=== PATIENT | male | born 1955 | race Two or more races ===

== ENCOUNTER → 2016-06-25 | Outpatient (REF) | payer MEDICARE, MEDICAID | LOC: M SFHCLERA 09:36 | PROVIDERS: ATTEND Family Medicine | DX: F20.9 Schizophrenia, unspecified (principal); F79 Unspecified intellectual disabilities; Z87.898 Personal history of other specified conditions; R76.11 Nonspecific reaction to tuberculin skin test without active tuberculosis ==

== ENCOUNTER → 2016-11-24 | Outpatient (REF) | payer MEDICARE, MEDICAID ==
[~2016-11-24] MED LIST: DEPA1TAB3 PO; DEPA500T2 PO; LACT10SO29 PO; META48.54 PO; MILKSUS PO; PERI0.126 SSP; RISP1TAB42 PO; RISP3TAB20 PO; ZITHTAB PO; ZYPR10TA PO; ZYPR20TA PO
[2016-11-24 11:52] LABS: MEAN CORPUSCULAR HEMOGLOBIN 33.4 pg (27.0-33.0); MEAN CORPUSCULAR HGB CONC 33.8 g/dl (32.0-36.5); MEAN CORPUSCULAR VOLUME 98.8 fl (80.0-96.0); RED CELL DISTRIBUTION WIDTH 12.8 % (11.5-14.5); WHITE BLOOD COUNT 6.7 K/mm3 (4.0-10.0)
[2016-11-24 12:38] LABS: BASOPHILS 1 % (0-4); EOSINOPHILS 1 % (0-5)
[2016-11-24 12:52] LABS: ALBUMIN 3.2 GM/DL (3.2-5.2); ALBUMIN/GLOBULIN RATIO 1.03 (1.00-1.93); ALKALINE PHOSPHATASE 71 U/L (45-117); ALT/SGPT 33 U/L (12-78); ANION GAP 7 MEQ/L (8-16); AST/SGOT 32 U/L (15-37); BILIRUBIN,TOTAL 0.5 MG/DL (0.2-1.0); BLOOD UREA NITROGEN 11 MG/DL (7-18); CALCIUM LEVEL 9.1 MG/DL (8.8-10.2); CARBON DIOXIDE LEVEL 28 MEQ/L (21-32); CHLORIDE LEVEL 103 MEQ/L (98-107); CREATININE FOR GFR 0.78 MG/DL (0.70-1.30); GLOMERULAR FILTRATION RATE > 60.0 (>49); GLUCOSE, FASTING 70 MG/DL (80-110); POTASSIUM SERUM 4.3 MEQ/L (3.5-5.1); SODIUM LEVEL 138 MEQ/L (136-145); TOTAL PROTEIN 6.3 GM/DL (6.4-8.2)
== END ==
LOC: M SFHCLERA 09:20
PROVIDERS: ATTEND Family Medicine
DX: F20.9 Schizophrenia, unspecified (principal)
CPT/HCPCS: 80053; 80164; 85007; 85027; G0463

== ENCOUNTER 2016-12-10 22:17 | Emergency (ER) | payer MEDICARE, MEDICAID ==
[~2016-12-10] VITALS: Ht 188 cm; Wt 72.6 kg
[~2016-12-10 22:17] MED LIST changes: -ZITHTAB PO
[2016-12-10 23:22] LABS: BASO % 0.1 % (0.0-1.0); EOS # 0.2 K/mm3 (0.0-0.50); EOS % 1.6 % (0.0-3.0); LARGE UNSTAINED CELL # 0.1 K/mm3 (0.0-0.4); LYMPH # 1.2 K/mm3 (1.5-4.5); LYMPH % 9.5 % (24.0-44.0); MEAN CORPUSCULAR HEMOGLOBIN 32.7 pg (27.0-33.0); MEAN CORPUSCULAR VOLUME 96.1 fl (80.0-96.0); MONO % 8.7 % (0.0-5.0); NEUTROPHILS # 9.1 K/mm3 (1.8-7.7); PLATELET COUNT, AUTOMATED 133 k/mm3 (150-450); RED CELL DISTRIBUTION WIDTH 12.8 % (11.5-14.5); WHITE BLOOD COUNT 11.5 K/mm3 (4.0-10.0)
[2016-12-10] MEDS ORDERED: ZITHTAB PO (23:43)
[2016-12-10] MEDS ORDERED: AZITHROMYCIN 250 MG TAB PO ONE (23:45)
[2016-12-10 23:56] VITALS: BP 123/57
--- NOTE | 2016-12-11 07:57 | REP ---
PA and lateral chest: There are no comparisons. There is a slightly increased radiodensity in the left lower lobe compatible with acute infiltrate. The remainder of the of the lung beasley are clear. Cardiac size is normal. The dino, mediastinum, and bony thorax are unremarkable. Impression: Left lower lobe infiltrate. Signed by Marco Antonio Mcnair MD 12/11/2016 07:49 A
== END 2016-12-11 00:03 | disposition home or self-care (01) ==
LOC: EDBD 22:17 → M ED 22:17
DX: R91.8 Other nonspecific abnormal finding of lung field (principal); F20.9 Schizophrenia, unspecified; F17.200 Nicotine dependence, unspecified, uncomplicated; Z79.899 Other long term (current) drug therapy; Z88.8 Allergy status to other drugs, medicaments and biological substances

== ENCOUNTER → 2016-12-11 | Outpatient (CLI) | payer MEDICARE, MEDICAID ==
[~2016-12-11] VITALS: Ht 168.9 cm; Wt 75.7 kg
[~2016-12-11] MED LIST changes: +LIDOCAINE 2% INJ 100 MG/5 ML SDV (FOR ANES.) As Ordered ONE; +NS 1,000 ML IV ONE; +PROPOFOL 200 MG/20 ML VIAL As Ordered ONE; +ZITHTAB PO
[2016-12-11 10:30] VITALS: BP 118/69
== END | disposition home or self-care (01) ==
LOC: M OPP 09:54
PROVIDERS: ATTEND Internal Medicine Gastroenterology
DX: Z12.11 Encounter for screening for malignant neoplasm of colon (principal); Z53.9 Procedure and treatment not carried out, unspecified reason

== ENCOUNTER 2017-02-04 12:59 | Outpatient (CLI) | payer MEDICARE, MEDICAID ==
[~2017-02-04] VITALS: Ht 167.6 cm; Wt 74.8 kg
[~2017-02-04 12:59] MED LIST changes: -LIDOCAINE 2% INJ 100 MG/5 ML SDV (FOR ANES.) As Ordered ONE; -NS 1,000 ML IV ONE; -PROPOFOL 200 MG/20 ML VIAL As Ordered ONE
[2017-02-04] MEDS ORDERED: NS 1,000 ML IV ONE (13:00)
[2017-02-04] MEDS ORDERED: PROPOFOL 200 MG/20 ML VIAL As Ordered ONE ×2 (14:31→14:45)
--- NOTE | 2017-02-04 15:06 | ROOR ---
Patient Name: Vipul Cunningham Procedure Date: 02/04/2017 2:26 PM Date of : 1955 Age: 61 Room: [facility] Gender: Male Note Status: Finalized Procedure: Colonoscopy Indications: Screening for colorectal malignant neoplasm Providers: Shawn JANSEN MD Referring MD: Hakan Lyons MD Requesting Provider: Medicines: Monitored Anesthesia Care Complications: No immediate complications. Procedure: Pre-Anesthesia Assessment: - The heart rate, respiratory rate, oxygen saturations, blood pressure, adequacy of pulmonary ventilation, and response to care were monitored throughout the procedure. The Colonoscope was introduced through the anus and advanced to the terminal ileum, with identification of the appendiceal orifice and IC valve. The colonoscopy was performed without difficulty. The patient tolerated the procedure well. The quality of the bowel preparation was good. Findings: The perianal and digital rectal examinations were normal. A 8 mm polyp was found in the cecum. The polyp was sessile. The polyp was removed with a piecemeal technique using a cold snare. Resection and retrieval were complete. A 5 mm polyp was found in the splenic flexure. The polyp was sessile. The polyp was removed with a cold snare. Resection and retrieval were complete. Two sessile polyps were found in the sigmoid colon. The polyps were 3 to 5 mm in size. These polyps were removed with a cold snare. Resection and retrieval were complete. The exam was otherwise normal throughout the examined colon. A single small angioectasia was found in the proximal ascending colon. Impression: - One 8 mm polyp in the cecum, removed piecemeal using a cold snare. Resected and retrieved. - One 5 mm polyp at the splenic flexure, removed with a cold snare. Resected and retrieved. - Two 3 to 5 mm polyps in the sigmoid colon, removed with a cold snare. Resected and retrieved. - A single small colonic angioectasia in ascending colon. - The colon and terminal ileum are otherwise normal. Recommendation: - Repeat colonoscopy in 3 years for surveillance. - Telephone endoscopist for pathology results in 2 weeks. Shawn Jansen MD Shawn JANSEN MD 02/04/2017 3:05:48 PM This report has been signed electronically. Number of Addenda: 0 Note Initiated On: 02/04/2017 2:26 PM Estimated Blood Loss: Estimated blood loss: none.
[2017-02-04 15:28] VITALS: BP 119/72
== END 2017-02-04 15:40 | disposition home or self-care (01) ==
LOC: M OPP 12:59
PROVIDERS: ATTEND Internal Medicine Gastroenterology
DX: Z12.11 Encounter for screening for malignant neoplasm of colon (principal); D12.0 Benign neoplasm of cecum; D12.3 Benign neoplasm of transverse colon; D12.5 Benign neoplasm of sigmoid colon; K55.20 Angiodysplasia of colon without hemorrhage; K40.90 Unilateral inguinal hernia, without obstruction or gangrene, not specified as recurrent; F70 Mild intellectual disabilities; F20.9 Schizophrenia, unspecified; R56.9 Unspecified convulsions; J44.9 Chronic obstructive pulmonary disease, unspecified; F17.210 Nicotine dependence, cigarettes, uncomplicated; Z79.899 Other long term (current) drug therapy; Z88.8 Allergy status to other drugs, medicaments and biological substances

== ENCOUNTER → 2017-03-02 | Outpatient (REF) | payer MEDICARE, MEDICAID ==
[2017-03-02 11:32] LABS: MEAN CORPUSCULAR HEMOGLOBIN 32.7 pg (27.0-33.0); MEAN CORPUSCULAR HGB CONC 33.4 g/dl (32.0-36.5); MEAN CORPUSCULAR VOLUME 97.9 fl (80.0-96.0); RED CELL DISTRIBUTION WIDTH 13.2 % (11.5-14.5); WHITE BLOOD COUNT 6.8 10^3/uL (4.0-10.0)
[2017-03-02 11:52] LABS: CALCIUM OXALATE CRYSTALS SMALL
[2017-03-02 12:21] LABS: ALBUMIN 3.3 GM/DL (3.2-5.2); ALBUMIN/GLOBULIN RATIO 0.97 (1.00-1.93); ALKALINE PHOSPHATASE 72 U/L (45-117); ALT/SGPT 29 U/L (12-78); ANION GAP 4 MEQ/L (8-16); AST/SGOT 28 U/L (15-37); BILIRUBIN,TOTAL 0.6 MG/DL (0.2-1.0); BLOOD UREA NITROGEN 14 MG/DL (7-18); CALCIUM LEVEL 9.4 MG/DL (8.8-10.2); CARBON DIOXIDE LEVEL 34 MEQ/L (21-32); CHLORIDE LEVEL 102 MEQ/L (98-107); CREATININE FOR GFR 0.75 MG/DL (0.70-1.30); FREE T4 0.84 NG/DL (0.76-1.46); GLOMERULAR FILTRATION RATE > 60.0 (>49); GLUCOSE, FASTING 66 MG/DL (80-110); POTASSIUM SERUM 4.2 MEQ/L (3.5-5.1); SODIUM LEVEL 140 MEQ/L (136-145); TOTAL PROTEIN 6.7 GM/DL (6.4-8.2)
[2017-03-04 00:07] LABS: PSA TOTAL 0.6 ng/mL (0.0-4.0)
== END ==
LOC: M SFHCLERA 09:35
PROVIDERS: ATTEND Family Medicine
DX: R73.03 Prediabetes (principal); R63.4 Abnormal weight loss

== ENCOUNTER → 2017-05-06 | Outpatient (REF) | payer MEDICARE, MEDICAID | LOC: M SFHCLERA 09:38 | PROVIDERS: ATTEND Family Medicine | DX: G40.909 Epilepsy, unspecified, not intractable, without status epilepticus (principal) ==

== ENCOUNTER → 2017-07-12 | Outpatient (CLI) | payer MEDICARE, MEDICAID | LOC: M LRY 15:40 | DX: R63.4 Abnormal weight loss (principal) | CPT/HCPCS: 71046; 84443 ==

== ENCOUNTER → 2017-07-12 | Outpatient (REF) | payer MEDICARE, MEDICAID ==
[2017-07-12 20:58] LABS: HEMATOCRIT 36.5 % (42.0-52.0); HEMOGLOBIN 12.4 g/dl (14.0-18.0); MEAN CORPUSCULAR HEMOGLOBIN 32.7 pg (27.0-33.0); MEAN CORPUSCULAR VOLUME 96.3 fl (80.0-96.0); PLATELET COUNT, AUTOMATED 105 10^3/uL (150-450); RED BLOOD COUNT 3.79 10^6/uL (4.30-6.10); RED CELL DISTRIBUTION WIDTH 12.9 % (11.5-14.5); WHITE BLOOD COUNT 7.6 10^3/uL (4.0-10.0)
[2017-07-12 21:00] LABS: APPEARANCE, URINE CLEAR (CLEAR); BACTERIA, URINE AUTO NEGATIVE (NEGATIVE); BILIRUBIN, URINE AUTO NEGATIVE (NEGATIVE); BLOOD, URINE BLOOD NEGATIVE (NEGATIVE); COLOR, URINE YELLOW (YELLOW); GLUCOSE, URINE (UA) AUTO NEGATIVE (NEGATIVE); KETONE, URINE AUTO TRACE mg/dL (NEGATIVE); LEUKOCYTE ESTERASE, URINE AUTO NEGATIVE (NEGATIVE); MUCUS, URINE SMALL (NEGATIVE); NITRITE, URINE AUTO NEGATIVE (NEGATIVE); PROTEIN, URINE AUTO NEGATIVE (NEGATIVE); RBC, URINE AUTO 0 /HPF (0-3); SPECIFIC GRAVITY URINE AUTO 1.011 (1.002-1.035); SQUAMOUS EPITHELIAL CELL UR AU 0 /HPF (0-6); UROBILINOGEN, URINE AUTO 0.2 mg/dL (0.0-2.0); WBC, URINE AUTO 0 /HPF (0-3)
[2017-07-12 21:19] LABS: ERYTHROCYTE SEDIMENTATION RATE 3 mm/hr (0-20)
[2017-07-12 21:21] LABS: ALBUMIN 3.4 GM/DL (3.2-5.2); ALBUMIN/GLOBULIN RATIO 1.17 (1.00-1.93); ALKALINE PHOSPHATASE 70 U/L (45-117); ALT/SGPT 28 U/L (12-78); ANION GAP 8 MEQ/L (8-16); AST/SGOT 36 U/L (7-37); BILIRUBIN,TOTAL 0.5 MG/DL (0.2-1.0); BLOOD UREA NITROGEN 16 MG/DL (7-18); CALCIUM LEVEL 8.5 MG/DL (8.8-10.2); CARBON DIOXIDE LEVEL 28 MEQ/L (21-32); CHLORIDE LEVEL 102 MEQ/L (98-107); CREATININE FOR GFR 0.65 MG/DL (0.70-1.30); GLOMERULAR FILTRATION RATE > 60.0 (>49); GLUCOSE, FASTING 83 MG/DL (70-100); POTASSIUM SERUM 4.3 MEQ/L (3.5-5.1); SODIUM LEVEL 138 MEQ/L (136-145); TOTAL PROTEIN 6.3 GM/DL (6.4-8.2)
== END ==
LOC: M SFHCLERA 15:19
DX: R63.4 Abnormal weight loss (principal)
CPT/HCPCS: 84443

== ENCOUNTER → 2017-07-15 | Outpatient (REF) | payer MEDICARE, MEDICAID ==
[2017-07-15 12:17] LABS: VALPROIC ACID (DEPAKOTE) 88.5 UG/ML (50.0-100.0)
== END ==
LOC: M SFHCLERA 08:57
DX: D69.6 Thrombocytopenia, unspecified (principal)
CPT/HCPCS: 80164

== ENCOUNTER → 2017-08-09 | Outpatient (REF) | payer MEDICARE, MEDICAID ==
[2017-08-09 20:53] LABS: BASO % 0.2 % (0.0-1.0); EOS # 0.1 10^3/uL (0.0-0.50); EOS % 0.5 % (0.0-3.0); HEMATOCRIT 38.9 % (42.0-52.0); HEMOGLOBIN 12.9 g/dl (14.0-18.0); IMMATURE GRANULOCYTE % 0.3 % (0-3.0); LYMPH # 2.8 10^3/uL (1.5-4.5); LYMPH % 30.2 % (24.0-44.0); MEAN CORPUSCULAR HEMOGLOBIN 32.7 pg (27.0-33.0); MEAN CORPUSCULAR HGB CONC 33.2 g/dl (32.0-36.5); MEAN CORPUSCULAR VOLUME 98.5 fl (80.0-96.0); MONO # 1.1 10^3/uL (0.0-0.8); MONO % 11.6 % (0.0-5.0); NEUTROPHILS # 5.2 10^3/uL (1.8-7.7); NEUTROPHILS % 57.2 % (36.0-66.0); PLATELET COUNT, AUTOMATED 156 10^3/uL (150-450); RED BLOOD COUNT 3.95 10^6/uL (4.30-6.10); RED CELL DISTRIBUTION WIDTH 13.2 % (11.5-14.5); WHITE BLOOD COUNT 9.1 10^3/uL (4.0-10.0)
[2017-08-09 21:01] LABS: VALPROIC ACID (DEPAKOTE) 84.3 UG/ML (50.0-100.0)
== END ==
LOC: M SFHCLERA 15:06
DX: F20.9 Schizophrenia, unspecified (principal); D69.6 Thrombocytopenia, unspecified
CPT/HCPCS: 80164

== ENCOUNTER → 2018-03-29 | Outpatient (REF) | payer MEDICARE, MEDICAID ==
[2018-03-29 12:13] LABS: BASO % 0.5 % (0.0-1.0); EOS # 0.1 10^3/uL (0.0-0.50); EOS % 1.3 % (0.0-3.0); HEMATOCRIT 39.5 % (42.0-52.0); HEMOGLOBIN 13.1 g/dl (13.5-17.5); IMMATURE GRANULOCYTE % 0.3 % (0-3.0); LYMPH % 47.4 % (24.0-44.0); MEAN CORPUSCULAR HEMOGLOBIN 32.2 pg (27.0-33.0); MEAN CORPUSCULAR HGB CONC 33.2 g/dl (32.0-36.5); MEAN CORPUSCULAR VOLUME 97.1 fl (80.0-96.0); NEUTROPHILS # 2.2 10^3/uL (1.8-7.7); NEUTROPHILS % 34.5 % (36.0-66.0); PLATELET COUNT, AUTOMATED 169 10^3/uL (150-450); RED BLOOD COUNT 4.07 10^6/uL (4.30-6.10); RED CELL DISTRIBUTION WIDTH 13.1 % (11.5-14.5); WHITE BLOOD COUNT 6.4 10^3/uL (4.0-10.0)
[2018-03-29 12:17] LABS: ALBUMIN 3.2 GM/DL (3.2-5.2); ALBUMIN/GLOBULIN RATIO 1.03 (1.00-1.93); ALKALINE PHOSPHATASE 67 U/L (45-117); ALT/SGPT 30 U/L (12-78); ANION GAP 7 MEQ/L (8-16); AST/SGOT 27 U/L (7-37); BILIRUBIN,TOTAL 0.5 MG/DL (0.2-1.0); BLOOD UREA NITROGEN 12 MG/DL (7-18); CALCIUM LEVEL 9.2 MG/DL (8.8-10.2); CARBON DIOXIDE LEVEL 31 MEQ/L (21-32); CHLORIDE LEVEL 102 MEQ/L (98-107); CHOLESTEROL LEVEL 160 MG/DL (<200); CHOLESTEROL RISK RATIO 2.857 (<5); CREATININE FOR GFR 0.78 MG/DL (0.70-1.30); GLOMERULAR FILTRATION RATE > 60.0 (>49); GLUCOSE, FASTING 71 MG/DL (70-100); HDL CHOLESTEROL 56 MG/DL (>40); LDL CHOLESTEROL 92 MG/DL (<100); NON-HDL-C 104 MG/DL; POTASSIUM SERUM 4.1 MEQ/L (3.5-5.1); SODIUM LEVEL 140 MEQ/L (136-145); TOTAL PROTEIN 6.3 GM/DL (6.4-8.2); TRIGLYCERIDES LEVEL 62 MG/DL (<150)
[2018-03-29 13:20] LABS: ESTIMATED AVERAGE GLUCOSE 111 MG/DL (60-110); HEMOGLOBIN A1c 5.5 %
== END ==
LOC: M SFHCLERA 08:01
DX: F20.9 Schizophrenia, unspecified (principal); D64.9 Anemia, unspecified; F17.200 Nicotine dependence, unspecified, uncomplicated
CPT/HCPCS: 84443

== ENCOUNTER → 2018-11-26 | Outpatient (CLI) | payer MEDICARE, MEDICAID ==
[~2018-11-26] MED LIST changes: +MILK120011 PO; -MILKSUS PO
[2018-11-26 19:01] LABS: ALBUMIN 3.5 GM/DL (3.2-5.2); BILIRUBIN,DIRECT 0.2 MG/DL (0.0-0.2); BILIRUBIN,TOTAL 0.6 MG/DL (0.2-1.0); CHOLESTEROL RISK RATIO 2.142 (<5); TOTAL PROTEIN 6.4 GM/DL (6.4-8.2)
== END ==
LOC: M WUC 08:44
PROVIDERS: ATTEND Family Medicine
DX: E78.5 Hyperlipidemia, unspecified (principal)

== ENCOUNTER → 2019-02-17 | Outpatient (CLI) | payer MEDICARE, MEDICAID ==
[2019-02-17 10:34] LABS: ALBUMIN 3.4 GM/DL (3.2-5.2); BILIRUBIN,DIRECT 0.2 MG/DL (0.0-0.2); BILIRUBIN,TOTAL 0.5 MG/DL (0.2-1.0); TOTAL PROTEIN 6.5 GM/DL (6.4-8.2)
== END ==
LOC: M WUC 08:15
PROVIDERS: ATTEND Psychiatry & Neurology Psychiatry
DX: Z51.81 Encounter for therapeutic drug level monitoring (principal); Z79.899 Other long term (current) drug therapy

== ENCOUNTER → 2019-03-29 | Outpatient (REF) | payer MEDICARE, MEDICAID ==
[2019-03-29 11:30] LABS: BASO % 0.6 % (0.0-1.0); EOS # 0.1 10^3/uL (0.0-0.5); EOS % 0.9 % (0.0-3.0); HEMATOCRIT 39.4 % (42.0-52.0); HEMOGLOBIN 12.7 g/dl (13.5-17.5); LYMPH # 2.1 10^3/uL (1.5-5.0); LYMPH % 38.1 % (24.0-44.0); MEAN CORPUSCULAR HEMOGLOBIN 32.7 pg (27.0-33.0); MEAN CORPUSCULAR HGB CONC 32.2 g/dl (32.0-36.5); MEAN CORPUSCULAR VOLUME 101.5 fl (80.0-96.0); MONO # 0.9 10^3/uL (0.0-0.8); MONO % 15.8 % (0.0-5.0); NEUTROPHILS # 2.4 10^3/uL (1.5-8.5); NEUTROPHILS % 44.2 % (36.0-66.0); PLATELET COUNT, AUTOMATED 172 10^3/uL (150-450); RED BLOOD COUNT 3.88 10^6/uL (4.30-6.10); WHITE BLOOD COUNT 5.4 10^3/uL (4.0-10.0)
[2019-03-29 11:42] LABS: ALBUMIN 3.3 GM/DL (3.2-5.2); ALT/SGPT 32 U/L (12-78); BILIRUBIN,TOTAL 0.5 MG/DL (0.2-1.0); BLOOD UREA NITROGEN 21 MG/DL (7-18); CALCIUM LEVEL 9.5 MG/DL (8.8-10.2); CARBON DIOXIDE LEVEL 31 MEQ/L (21-32); CHLORIDE LEVEL 109 MEQ/L (98-107); CHOLESTEROL LEVEL 123 MG/DL (<200); CHOLESTEROL RISK RATIO 2.157 (<5); CREATININE FOR GFR 0.84 MG/DL (0.70-1.30); GLOMERULAR FILTRATION RATE > 60.0 (>49); GLUCOSE, FASTING 69 MG/DL (70-100); HDL CHOLESTEROL 57 MG/DL (>40); LDL CHOLESTEROL 51 MG/DL (<100); NON-HDL-C 66 MG/DL; POTASSIUM SERUM 4.2 MEQ/L (3.5-5.1); SODIUM LEVEL 143 MEQ/L (136-145); TOTAL PROTEIN 6.7 GM/DL (6.4-8.2); TRIGLYCERIDES LEVEL 76 MG/DL (<150); VALPROIC ACID (DEPAKOTE) 85.3 UG/ML (50.0-100.0)
[2019-03-29 12:41] LABS: HEMOGLOBIN A1c 5.4 %
== END ==
LOC: M SFHCLERA 08:46
PROVIDERS: ATTEND Family Medicine
DX: F20.9 Schizophrenia, unspecified (principal); D64.9 Anemia, unspecified; Z79.899 Other long term (current) drug therapy
CPT/HCPCS: 80053; 80061; 80164; 83036; 84443; 85025; G0463

== ENCOUNTER → 2019-06-26 | Outpatient (REF) | payer MEDICARE, MEDICAID | LOC: M SFHCLERA 11:50 | PROVIDERS: ATTEND Nurse Practitioner Family | DX: R39.198 Other difficulties with micturition (principal) | CPT/HCPCS: G0103; G0463 ==

== ENCOUNTER → 2020-04-20 | Outpatient (CLI) | payer MEDICARE, MEDICAID ==
[~2020-04-20] MED LIST changes: +ATOR1TAB19 PO; +DIVA500T94 PO; -LACT10SO29 PO; +LACT20EL PO; +PERI12LIQ MT
== END ==
LOC: M LABSMTC 12:09
PROVIDERS: ATTEND Anesthesiology
DX: Z01.812 Encounter for preprocedural laboratory examination (principal); Z20.828 Contact with and (suspected) exposure to other viral communicable diseases

== ENCOUNTER → 2020-04-22 | Outpatient (CLI) | payer MEDICARE, MEDICAID ==
[2020-04-22 16:04] LABS: BASO % 0.6 % (0.0-1.0); EOS # 0.1 10^3/uL (0.0-0.5); EOS % 0.9 % (0.0-3.0); HEMATOCRIT 39.2 % (42.0-52.0); HEMOGLOBIN 12.8 g/dl (13.5-17.5); LYMPH # 2.3 10^3/uL (1.5-5.0); LYMPH % 35.6 % (24.0-44.0); MEAN CORPUSCULAR HEMOGLOBIN 32.4 pg (27.0-33.0); MEAN CORPUSCULAR HGB CONC 32.7 g/dl (32.0-36.5); MEAN CORPUSCULAR VOLUME 99.2 fl (80.0-96.0); MONO # 0.9 10^3/uL (0.0-0.8); MONO % 14.4 % (0.0-5.0); NEUTROPHILS # 3.1 10^3/uL (1.5-8.5); NEUTROPHILS % 48.3 % (36.0-66.0); PLATELET COUNT, AUTOMATED 148 10^3/uL (150-450); RED BLOOD COUNT 3.95 10^6/uL (4.30-6.10); WHITE BLOOD COUNT 6.4 10^3/uL (4.0-10.0)
[2020-04-22 16:09] LABS: ALBUMIN 3.4 GM/DL (3.2-5.2); ALT/SGPT 32 U/L (12-78); BILIRUBIN,TOTAL 0.5 MG/DL (0.2-1.0); BLOOD UREA NITROGEN 17 MG/DL (7-18); CALCIUM LEVEL 9.3 MG/DL (8.8-10.2); CARBON DIOXIDE LEVEL 32 MEQ/L (21-32); CHLORIDE LEVEL 105 MEQ/L (98-107); CHOLESTEROL LEVEL 121 MG/DL (<200); CHOLESTEROL RISK RATIO 2.086 (<5); GLOMERULAR FILTRATION RATE > 60.0 (>49); GLUCOSE, FASTING 78 MG/DL (70-100); HDL CHOLESTEROL 58 MG/DL (>40); LDL CHOLESTEROL 48 MG/DL (<100); NON-HDL-C 63 MG/DL; SODIUM LEVEL 139 MEQ/L (136-145); TOTAL PROTEIN 6.5 GM/DL (6.4-8.2); TRIGLYCERIDES LEVEL 74 MG/DL (<150)
== END ==
LOC: M WUC 09:52
PROVIDERS: ATTEND Nurse Practitioner Family
DX: Z00.00 Encounter for general adult medical examination without abnormal findings (principal); Z79.899 Other long term (current) drug therapy

== ENCOUNTER 2020-04-25 07:54 | Day surgery (SDC) | payer MEDICARE, MEDICAID ==
[~2020-04-25] VITALS: Ht 160 cm; Wt 66.4 kg
[~2020-04-25 07:54] MED LIST changes: +NS 1,000 ML IV ONE
--- NOTE | 2020-04-25 09:28 | ROOR ---
Patient Name: Vipul Cunningham Procedure Date: 04/25/2020 8:32 AM Date of : 1955 Age: 64 Room: [facility] Gender: Male Note Status: Finalized Procedure: Colonoscopy Indications: High risk colon cancer surveillance: Personal history of colonic polyps Providers: Shawn JANSEN MD Referring MD: Judith Franklin Md Requesting Provider: Medicines: Monitored Anesthesia Care Complications: No immediate complications. Procedure: Pre-Anesthesia Assessment: - The heart rate, respiratory rate, oxygen saturations, blood pressure, adequacy of pulmonary ventilation, and response to care were monitored throughout the procedure. The Colonoscope was introduced through the anus and advanced to the cecum, identified by appendiceal orifice and ileocecal valve. The colonoscopy was performed without difficulty. The patient tolerated the procedure well. The quality of the bowel preparation was good. Findings: The perianal and digital rectal examinations were normal. Three sessile polyps were found in the recto-sigmoid colon, sigmoid colon and descending colon. The polyps were 4 to 5 mm in size. These polyps were removed with a cold snare. Resection and retrieval were complete. A single medium-sized patchy angioectasia without bleeding was found in the cecum. The colon (entire examined portion) was grossly redundant. Advancing the scope required applying abdominal pressure. Internal hemorrhoids were found during retroflexion. The exam was otherwise without abnormality on direct and retroflexion views. Impression: - Markedly elongated and redundant colon. - Three 4 to 5 mm polyps at the recto-sigmoid colon, in the sigmoid colon and in the descending colon, removed with a cold snare. Resected and retrieved. - A single non-bleeding colonic (cecum) angioectasia. - Internal hemorrhoids. - The examination was otherwise normal on direct and retroflexion views. Recommendation: - Repeat colonoscopy in 3 - 5 years for surveillance. - Repeat colonoscopy for surveillance based on pathology results. - Telephone endoscopist for pathology results in 2 weeks. Procedure Code(s): --- Professional --- 88891, Colonoscopy, flexible; with removal of tumor(s), polyp(s), or other lesion(s) by snare technique Diagnosis Code(s): --- Professional --- Q43.8, Other specified congenital malformations of intestine K55.20, Angiodysplasia of colon without hemorrhage K63.5, Polyp of colon K64.8, Other hemorrhoids Z86.010, Personal history of colonic polyps CPT copyright 2019 [employer]. All rights reserved. The codes documented in this report are preliminary and upon manager knowledge review may be revised to meet current compliance requirements. Shawn Jansen MD Shawn JANSEN MD 04/25/2020 9:28:39 AM Electronically signed by Shawn JANSEN MD Number of Addenda: 0 Note Initiated On: 04/25/2020 8:32 AM Estimated Blood Loss: Estimated blood loss: none.
[2020-04-25] MEDS ORDERED: propofoL 200 MG/20 ML VIAL As Ordered ONE (09:31)
[2020-04-25] MEDS ORDERED: LIDOCAINE 2% 100MG/5ML SDV (FOR ANES.) As Ordered ONE (09:31)
[2020-04-25 09:45] VITALS: BP 144/83
== END 2020-04-25 09:55 | disposition home or self-care (01) ==
LOC: M OPP 07:54
PROVIDERS: ATTEND Internal Medicine Gastroenterology
DX: Z12.11 Encounter for screening for malignant neoplasm of colon (principal); Z86.010 Personal history of colon polyps; K63.5 Polyp of colon; K55.20 Angiodysplasia of colon without hemorrhage; K64.8 Other hemorrhoids; Q43.8 Other specified congenital malformations of intestine; F17.210 Nicotine dependence, cigarettes, uncomplicated; Z79.899 Other long term (current) drug therapy; Z88.8 Allergy status to other drugs, medicaments and biological substances

== ENCOUNTER → 2021-05-08 | Outpatient (CLI) | payer MEDICARE, MEDICAID ==
[~2021-05-08] MED LIST changes: +BACITAB PO; +CELE20TA PO; +DOXY-350 PO; +FLUT11IN INH; +FLUV100T25 PO; -NS 1,000 ML IV ONE; +OSEL75CA2 PO; -PERI12LIQ MT; +PERI12LIQ SSP; +PRED10TA2 PO; +PROV108A INH; +TRAZ-252 PO
[2021-05-08 11:58] LABS: BASO % 0.5 % (0.0-1.0); EOS % 0.2 % (0.0-3.0); HEMATOCRIT 35.4 % (42.0-52.0); HEMOGLOBIN 11.9 g/dl (13.5-17.5); LYMPH # 0.8 10^3/uL (1.5-5.0); LYMPH % 12.5 % (24.0-44.0); MEAN CORPUSCULAR HEMOGLOBIN 32.9 pg (27.0-33.0); MEAN CORPUSCULAR HGB CONC 33.6 g/dl (32.0-36.5); MEAN CORPUSCULAR VOLUME 97.8 fl (80.0-96.0); MONO # 1.2 10^3/uL (0.0-0.8); MONO % 18.1 % (2.0-8.0); NEUTROPHILS # 4.4 10^3/uL (1.5-8.5); NEUTROPHILS % 68.1 % (36.0-66.0); PLATELET COUNT, AUTOMATED 124 10^3/uL (150-450); RED BLOOD COUNT 3.62 10^6/uL (4.30-6.10); WHITE BLOOD COUNT 6.4 10^3/uL (4.0-10.0)
[2021-05-08 12:32] LABS: ALBUMIN 3.3 GM/DL (3.2-5.2); ALT/SGPT 38 U/L (12-78); BILIRUBIN,TOTAL 0.4 MG/DL (0.2-1.0); BLOOD UREA NITROGEN 14 MG/DL (7-18); CALCIUM LEVEL 8.9 MG/DL (8.8-10.2); CARBON DIOXIDE LEVEL 28 MEQ/L (21-32); CHLORIDE LEVEL 99 MEQ/L (98-107); CHOLESTEROL LEVEL 121 MG/DL (<200); CHOLESTEROL RISK RATIO 1.753 (<5); CREATININE FOR GFR 0.97 MG/DL (0.70-1.30); GLOMERULAR FILTRATION RATE > 60.0 (>49); GLUCOSE, FASTING 79 MG/DL (70-100); HDL CHOLESTEROL 69 MG/DL (>40); LDL CHOLESTEROL 43 MG/DL (<100); NON-HDL-C 52 MG/DL; POTASSIUM SERUM 4.3 MEQ/L (3.5-5.1); SODIUM LEVEL 133 MEQ/L (136-145); TOTAL PROTEIN 6.4 GM/DL (6.4-8.2); TRIGLYCERIDES LEVEL 46 MG/DL (<150)
[2021-05-08 12:48] LABS: HEMOGLOBIN A1c 5.4 %
== END ==
LOC: M WUC 09:07
PROVIDERS: ATTEND Nurse Practitioner Family
DX: Z00.00 Encounter for general adult medical examination without abnormal findings (principal); Z79.899 Other long term (current) drug therapy

== ENCOUNTER 2021-05-09 08:35 | Inpatient (IN) | payer MEDICARE, MEDICAID ==
[~2021-05-09] VITALS: Ht 167.6 cm; Wt 61.0 kg
[~2021-05-09 08:35] MED LIST changes: -BACITAB PO; -CELE20TA PO; -DOXY-350 PO; -FLUT11IN INH; -FLUV100T25 PO; -OSEL75CA2 PO; -PRED10TA2 PO; -PROV108A INH; -TRAZ-252 PO
[2021-05-09] MEDS ORDERED: cefTRIAXone SOD 2 GM in D5W MINI-BAG PLUS 50 ML IV ONE (08:55)
[2021-05-09 09:18] LABS: VENOUS BASE EXCESS -0.4 (-2.0-2.0); VENOUS HCO3 24.3 MEQ/L (23.0-27.0); VENOUS O2 SATURATION 84.1 % (60.0-80.0); VENOUS PARTIAL PRESSURE CO2 40.2 mmHg (38.0-50.0); VENOUS PARTIAL PRESSURE O2 46.6 mmHg (30.0-50.0); VENOUS PH 7.399 UNITS (7.330-7.430); VENOUS STANDARD HCO3 23.8 MEQ/L; VENOUS TOTAL CO2 25.5 MEQ/L (24.0-28.0)
[2021-05-09 09:27] LABS: BASO % 0.2 % (0.0-1.0); HEMATOCRIT 33.2 % (42.0-52.0); HEMOGLOBIN 11.2 g/dl (13.5-17.5); LYMPH # 0.6 10^3/uL (1.5-5.0); LYMPH % 5.1 % (24.0-44.0); MEAN CORPUSCULAR HEMOGLOBIN 32.6 pg (27.0-33.0); MEAN CORPUSCULAR HGB CONC 33.7 g/dl (32.0-36.5); MEAN CORPUSCULAR VOLUME 96.5 fl (80.0-96.0); MONO % 17.8 % (2.0-8.0); NEUTROPHILS # 8.7 10^3/uL (1.5-8.5); NEUTROPHILS % 76.3 % (36.0-66.0); PLATELET COUNT, AUTOMATED 104 10^3/uL (150-450); RED BLOOD COUNT 3.44 10^6/uL (4.30-6.10); WHITE BLOOD COUNT 11.3 10^3/uL (4.0-10.0)
[2021-05-09] MEDS ORDERED: ACETAMINOPHEN 500 MG TAB PO ONE (09:40)
[2021-05-09 09:45] LABS: INR 1.25; PROTHROMBIN TIME 16.1 SECONDS (12.7-14.5)
[2021-05-09 09:46] LABS: PARTIAL THROMBOPLASTIN TIME 45.1 SECONDS (25.9-37.0)
[2021-05-09 09:52] LABS: ALBUMIN 2.6 GM/DL (3.2-5.2); ALT/SGPT 30 U/L (12-78); AMYLASE 49 U/L (25-115); BILIRUBIN,DIRECT 0.2 MG/DL (0.0-0.2); BILIRUBIN,TOTAL 0.5 MG/DL (0.2-1.0); BLOOD UREA NITROGEN 17 MG/DL (7-18); C REACTIVE PROTEIN QUANTITATIV 4.75 MG/DL (0.00-0.30); CALCIUM LEVEL 7.7 MG/DL (8.8-10.2); CARBON DIOXIDE LEVEL 24 MEQ/L (21-32); CHLORIDE LEVEL 105 MEQ/L (98-107); CREATININE FOR GFR 0.82 MG/DL (0.70-1.30); GLOMERULAR FILTRATION RATE > 60.0 (>49); GLUCOSE, FASTING 91 MG/DL (70-100); POTASSIUM SERUM 3.5 MEQ/L (3.5-5.1); SODIUM LEVEL 135 MEQ/L (136-145); TOTAL PROTEIN 5.4 GM/DL (6.4-8.2)
[2021-05-09] MEDS ORDERED: OSELTAMIVIR PHOSPHATE 75 MG CAP (TAMIFLU) PO ONE (10:20)
[2021-05-09] MEDS ORDERED: NS 2,110 ML in IV 1 EA IV ONE (11:00)
[2021-05-09] MEDS ORDERED: ALBUTEROL 90 MCG/ACT 8GM HFA INHALER INH PRN (11:05)
[2021-05-09] MEDS ORDERED: methylPREDNISolone 125MG 2ML VIAL IV ONE (11:05)
[2021-05-09] MEDS: COMBIVENT RESPIMAT 100-20MCG INHALER 4GM INH SCH ×5 (11:24→20:00)
[2021-05-09] MEDS ORDERED: TRAZ-252 PO (11:49)
[2021-05-09] MEDS ORDERED: CELE20TA PO (11:49)
[2021-05-09] MEDS ORDERED: FLUV100T25 PO (11:49)
[2021-05-09] MEDS ORDERED: HOME MED LIST COMPLETE! XX SCH (11:50)
[2021-05-09] MEDS ORDERED: ENOXAPARIN 40MG/0.4ML SYRINGE (J1650 PER 10MG) SC ONE (12:00)
[2021-05-09] MEDS ORDERED: ALBUTEROL 90 MCG/ACT 8GM HFA INHALER INH SCH (12:00)
[2021-05-09] MEDS ORDERED: NICOTINE 14 MG/24 HR TRANSDERMAL TD ONE (12:00)
[2021-05-09] MEDS: MIDODRINE 5 MG TAB PO SCH ×2 (14:43→17:31)
[2021-05-09] MEDS ORDERED: ACETAMINOPHEN TAB 650MG DOSE (2X325MG) PO PRN (15:25)
[2021-05-09 15:30] VITALS: BP 106/67
[2021-05-09] MEDS ORDERED: SENOKOT S TAB PO PRN (15:45)
[2021-05-09] MEDS ORDERED: NICOTINE POLACRILEX 2 MG GUM PO PRN (15:45)
[2021-05-09] MEDS ORDERED: MOM 30ML SUSPENSION UDC PO PRN (15:45)
[2021-05-09] MEDS ORDERED: MIRALAX *UNIT DOSE* 17GM PACKET PO PRN (15:45)
[2021-05-09] MEDS ORDERED: CALCIUM GLUCONATE 1,000 MG in D5W MINI-BAG PLUS 100 ML IV ONE (16:00)
[2021-05-09] MEDS: methylPREDNISolone 125MG 2ML VIAL IV SCH ×2 (17:31→23:21)
[2021-05-09] MEDS: LACTULOSE 20 GM/30 ML SYRUP UD PO SCH (17:32)
[2021-05-09] MEDS: fluvoxaMINE MALEATE 50 MG TAB PO SCH (17:32)
[2021-05-09] MEDS: CitaloPRAM (CeleXA) 20 MG TAB PO SCH (17:32)
[2021-05-09] MEDS: FLUTICASONE HFA 110 MCG 12 GM INHALER (FLOVENT) INH SCH (20:13)
[2021-05-09] MEDS: OSELTAMIVIR PHOSPHATE 75 MG CAP (TAMIFLU) PO SCH (20:22)
[2021-05-09] MEDS: risperiDONE 3 MG TAB PO SCH (20:22)
[2021-05-09] MEDS: DIVALPROEX 500 MG TAB PO SCH (20:22)
[2021-05-09] MEDS: guaiFENesin ER 600 MG TAB PO SCH (20:23)
[2021-05-09] MEDS: ATORVASTATIN 10 MG TAB PO SCH (20:23)
[2021-05-09] MEDS: OLANZapine 10 MG TAB PO SCH (20:23)
[2021-05-09] MEDS: traZODone 25MG PER 1/2 TABLET PO SCH (20:23)
[2021-05-09] MEDS: CHLORHEXIDINE GLUCONATE 0.12 % 15ML UDC (PERIDEX ORAL RINSE) SSP SCH (21:00)
[2021-05-09 22:00] VITALS: BP 100/57
[2021-05-10] MEDS: COMBIVENT RESPIMAT 100-20MCG INHALER 4GM INH SCH ×6 (00:43→20:00)
[2021-05-10] MEDS: methylPREDNISolone 125MG 2ML VIAL IV SCH ×2 (05:52→09:21)
[2021-05-10 06:00] VITALS: BP 105/55
[2021-05-10 06:28] LABS: HEMATOCRIT 36.5 % (42.0-52.0); HEMOGLOBIN 12.4 g/dl (13.5-17.5); MEAN CORPUSCULAR HEMOGLOBIN 32.7 pg (27.0-33.0); MEAN CORPUSCULAR VOLUME 96.3 fl (80.0-96.0); PLATELET COUNT, AUTOMATED 118 10^3/uL (150-450); RED BLOOD COUNT 3.79 10^6/uL (4.30-6.10)
[2021-05-10 07:16] LABS: ATYPICAL LYMPH 2 % (0-5); LYMPHOCYTES 9 % (16-44); METAMYELOCYTES 5 % (0-0); MONOCYTES 9 % (0-5); NEUTROPHILS 44 % (28-66)
[2021-05-10 07:19] LABS: PLATELET ESTIMATE DECREASED (NORMAL); SCHISTOCYTES 1+
[2021-05-10] MEDS: FLUTICASONE HFA 110 MCG 12 GM INHALER (FLOVENT) INH SCH ×2 (07:24→20:54)
[2021-05-10 07:32] LABS: BLOOD UREA NITROGEN 15 MG/DL (7-18); CALCIUM LEVEL 8.7 MG/DL (8.8-10.2); CARBON DIOXIDE LEVEL 25 MEQ/L (21-32); CHLORIDE LEVEL 108 MEQ/L (98-107); GLOMERULAR FILTRATION RATE > 60.0 (>49); GLUCOSE, FASTING 121 MG/DL (70-100); POTASSIUM SERUM 3.4 MEQ/L (3.5-5.1); SODIUM LEVEL 142 MEQ/L (136-145)
[2021-05-10] MEDS: CHLORHEXIDINE GLUCONATE 0.12 % 15ML UDC (PERIDEX ORAL RINSE) SSP SCH ×2 (09:21→19:58)
[2021-05-10] MEDS: LACTULOSE 20 GM/30 ML SYRUP UD PO SCH (09:21)
[2021-05-10] MEDS: OLANZapine 10 MG TAB PO SCH ×2 (09:22→19:58)
[2021-05-10] MEDS: ENOXAPARIN 40MG/0.4ML SYRINGE (J1650 PER 10MG) SC SCH (09:22)
[2021-05-10] MEDS: guaiFENesin ER 600 MG TAB PO SCH ×2 (09:22→19:58)
[2021-05-10] MEDS: OSELTAMIVIR PHOSPHATE 75 MG CAP (TAMIFLU) PO SCH ×2 (09:22→19:58)
[2021-05-10] MEDS: fluvoxaMINE MALEATE 50 MG TAB PO SCH (09:23)
[2021-05-10] MEDS: risperiDONE 1 MG TAB PO SCH (09:23)
[2021-05-10] MEDS: CitaloPRAM (CeleXA) 20 MG TAB PO SCH (09:23)
[2021-05-10] MEDS: MIDODRINE 5 MG TAB PO SCH ×3 (09:23→16:03)
[2021-05-10] MEDS ORDERED: CALCIUM CARBONATE 500 MG CHEW U/D PO ONE (12:00)
[2021-05-10] MEDS ORDERED: POTASSIUM CHLORIDE 10MEQ SR TABLET PO ONE (12:00)
[2021-05-10] MEDS ORDERED: predniSONE 20 MG TAB PO ONE (13:00)
[2021-05-10 14:00] VITALS: BP 106/58
[2021-05-10] MEDS: ATORVASTATIN 10 MG TAB PO SCH (19:57)
[2021-05-10] MEDS: traZODone 25MG PER 1/2 TABLET PO SCH (19:57)
[2021-05-10] MEDS: DIVALPROEX 500 MG TAB PO SCH (19:57)
[2021-05-10] MEDS: risperiDONE 3 MG TAB PO SCH (19:58)
[2021-05-10 22:00] VITALS: BP 122/65
[2021-05-11] MEDS: COMBIVENT RESPIMAT 100-20MCG INHALER 4GM INH SCH ×3 (00:11→09:37)
[2021-05-11 06:00] VITALS: BP 127/69
[2021-05-11 06:45] LABS: HEMATOCRIT 32.1 % (42.0-52.0); HEMOGLOBIN 10.9 g/dl (13.5-17.5); MEAN CORPUSCULAR HEMOGLOBIN 32.5 pg (27.0-33.0); MEAN CORPUSCULAR VOLUME 95.8 fl (80.0-96.0); PLATELET COUNT, AUTOMATED 146 10^3/uL (150-450); RED BLOOD COUNT 3.35 10^6/uL (4.30-6.10); WHITE BLOOD COUNT 19.6 10^3/uL (4.0-10.0)
[2021-05-11 07:20] LABS: BLOOD UREA NITROGEN 18 MG/DL (7-18); CALCIUM LEVEL 8.8 MG/DL (8.8-10.2); CARBON DIOXIDE LEVEL 27 MEQ/L (21-32); CHLORIDE LEVEL 109 MEQ/L (98-107); CREATININE FOR GFR 0.71 MG/DL (0.70-1.30); GLOMERULAR FILTRATION RATE > 60.0 (>49); GLUCOSE, FASTING 122 MG/DL (70-100); POTASSIUM SERUM 4.3 MEQ/L (3.5-5.1); SODIUM LEVEL 142 MEQ/L (136-145)
[2021-05-11 07:55] LABS: ATYPICAL LYMPH 3 % (0-5); LYMPHOCYTES 6 % (16-44); METAMYELOCYTES 2 % (0-0); MONOCYTES 5 % (0-5); NEUTROPHILS 53 % (28-66)
[2021-05-11 08:00] LABS: PLATELET ESTIMATE NORMAL (NORMAL); SCHISTOCYTES 1+
[2021-05-11] MEDS: CHLORHEXIDINE GLUCONATE 0.12 % 15ML UDC (PERIDEX ORAL RINSE) SSP SCH (08:57)
[2021-05-11] MEDS: ENOXAPARIN 40MG/0.4ML SYRINGE (J1650 PER 10MG) SC SCH (08:58)
[2021-05-11] MEDS: fluvoxaMINE MALEATE 50 MG TAB PO SCH (08:58)
[2021-05-11] MEDS: OSELTAMIVIR PHOSPHATE 75 MG CAP (TAMIFLU) PO SCH (08:58)
[2021-05-11] MEDS: guaiFENesin ER 600 MG TAB PO SCH (08:58)
[2021-05-11] MEDS: LACTULOSE 20 GM/30 ML SYRUP UD PO SCH (08:59)
[2021-05-11] MEDS: OLANZapine 10 MG TAB PO SCH (08:59)
[2021-05-11] MEDS ORDERED: predniSONE 20 MG TAB PO SCH (09:00)
[2021-05-11] MEDS ORDERED: PRED10TA2 PO (09:08)
[2021-05-11] MEDS ORDERED: FLUT11IN INH (09:08)
[2021-05-11] MEDS ORDERED: PROV108A INH (09:08)
[2021-05-11] MEDS ORDERED: OSEL75CA2 PO (09:08)
[2021-05-11] MEDS ORDERED: DOXY-350 PO (09:08)
[2021-05-11] MEDS ORDERED: BACITAB PO (09:08)
[2021-05-11] MEDS: CitaloPRAM (CeleXA) 20 MG TAB PO SCH (09:15)
[2021-05-11] MEDS: risperiDONE 1 MG TAB PO SCH (09:16)
[2021-05-11] MEDS: FLUTICASONE HFA 110 MCG 12 GM INHALER (FLOVENT) INH SCH (09:36)
== END 2021-05-11 12:45 | disposition home or self-care (01) | DRG 871 ==
LOC: M ED 08:35 → EDBD 08:35 → M ED INP 11:05 → ENRESERV 12:25 → M MSPAV 14:56
PROVIDERS: ADMIT General Practice; ATTEND General Practice
DX: A41.9 Sepsis, unspecified organism (principal); J96.01 Acute respiratory failure with hypoxia; J44.1 Chronic obstructive pulmonary disease with (acute) exacerbation; F20.9 Schizophrenia, unspecified; F70 Mild intellectual disabilities; G40.909 Epilepsy, unspecified, not intractable, without status epilepticus; K59.09 Other constipation; K06.1 Gingival enlargement; B37.9 Candidiasis, unspecified; F17.210 Nicotine dependence, cigarettes, uncomplicated; J09.X2 Influenza due to identified novel influenza A virus with other respiratory manifestations; Z79.899 Other long term (current) drug therapy; Z88.8 Allergy status to other drugs, medicaments and biological substances; F42.9 Obsessive-compulsive disorder, unspecified; E87.6 Hypokalemia

== ENCOUNTER → 2021-06-11 | Outpatient (CLI) | payer MEDICARE, MEDICAID ==
[~2021-06-11] MED LIST changes: +BACITAB PO; +CELE20TA PO; +DOXY-350 PO; +FLUT11IN INH; +FLUV100T25 PO; +OSEL75CA2 PO; +PRED10TA2 PO; +PROV108A INH; +TRAZ-252 PO
[2021-06-11 16:17] LABS: BASO % 0.7 % (0.0-1.0); EOS # 0.1 10^3/uL (0.0-0.5); HEMATOCRIT 37.9 % (42.0-52.0); LYMPH % 33.1 % (24.0-44.0); MEAN CORPUSCULAR HEMOGLOBIN 32.3 pg (27.0-33.0); MEAN CORPUSCULAR HGB CONC 31.7 g/dl (32.0-36.5); MEAN CORPUSCULAR VOLUME 101.9 fl (80.0-96.0); MONO # 1.3 10^3/uL (0.0-0.8); MONO % 20.9 % (2.0-8.0); NEUTROPHILS # 2.6 10^3/uL (1.5-8.5); NEUTROPHILS % 42.5 % (36.0-66.0); PLATELET COUNT, AUTOMATED 160 10^3/uL (150-450); RED BLOOD COUNT 3.72 10^6/uL (4.30-6.10); WHITE BLOOD COUNT 6.1 10^3/uL (4.0-10.0)
[2021-06-11 16:52] LABS: ALT/SGPT 22 U/L (12-78); BILIRUBIN,TOTAL 0.3 MG/DL (0.2-1.0); BLOOD UREA NITROGEN 18 MG/DL (7-18); CARBON DIOXIDE LEVEL 33 MEQ/L (21-32); CHLORIDE LEVEL 100 MEQ/L (98-107); CREATININE FOR GFR 0.87 MG/DL (0.70-1.30); FREE T4 0.81 NG/DL (0.76-1.46); GLOMERULAR FILTRATION RATE > 60.0 (>49); GLUCOSE, FASTING 78 MG/DL (70-100); SODIUM LEVEL 141 MEQ/L (136-145)
[2021-06-11 17:10] LABS: HEMOGLOBIN A1c 5.3 %
[2021-06-16 11:58] LABS: FOLATE 15.9 NG/ML; VITAMIN B12 LEVEL 1006 PG/ML
== END ==
LOC: M WUC 12:00
PROVIDERS: ATTEND Nurse Practitioner Family
DX: R53.83 Other fatigue (principal); R63.4 Abnormal weight loss

== ENCOUNTER → 2021-06-17 | Outpatient (CLI) | payer MEDICARE, MEDICAID | LOC: M WUC 08:19 | PROVIDERS: ATTEND Nurse Practitioner Family | DX: D75.89 Other specified diseases of blood and blood-forming organs (principal) ==

== ENCOUNTER 2021-08-02 13:26 | Inpatient (IN) | payer MEDICARE, MEDICAID ==
[~2021-08-02] VITALS: Ht 170.2 cm; Wt 64.9 kg
[2021-08-02] MEDS ORDERED: LIDOCAINE 2% 5ML JELLY UROJET TOP ONE (14:05)
[2021-08-02] MEDS ORDERED: NS 500 ML IV ONE (14:10)
[2021-08-02] MEDS ORDERED: ACETAMINOPHEN 325 MG TAB PO ONE (14:10)
[2021-08-02 14:18] LABS: BASO % 0.1 % (0.0-1.0); HEMATOCRIT 33.8 % (42.0-52.0); HEMOGLOBIN 11.4 g/dl (13.5-17.5); LYMPH # 1.6 10^3/uL (1.5-5.0); LYMPH % 7.2 % (24.0-44.0); MEAN CORPUSCULAR HEMOGLOBIN 32.8 pg (27.0-33.0); MEAN CORPUSCULAR HGB CONC 33.7 g/dl (32.0-36.5); MEAN CORPUSCULAR VOLUME 97.1 fl (80.0-96.0); MONO % 9.6 % (2.0-8.0); NEUTROPHILS # 17.7 10^3/uL (1.5-8.5); NEUTROPHILS % 82.2 % (36.0-66.0); PLATELET COUNT, AUTOMATED 141 10^3/uL (150-450); RED BLOOD COUNT 3.48 10^6/uL (4.30-6.10); WHITE BLOOD COUNT 21.6 10^3/uL (4.0-10.0)
[2021-08-02 14:19] LABS: MONO # 2.1 10^3/uL (0.0-0.8)
[2021-08-02 14:31] LABS: INR 1.1; PROTHROMBIN TIME 14.6 SECONDS (12.7-14.5)
[2021-08-02 14:32] LABS: PARTIAL THROMBOPLASTIN TIME 35.5 SECONDS (25.9-37.0)
[2021-08-02 14:56] LABS: ALBUMIN 2.9 GM/DL (3.2-5.2); ALT/SGPT 24 U/L (12-78); BILIRUBIN,TOTAL 0.7 MG/DL (0.2-1.0); BLOOD UREA NITROGEN 21 MG/DL (7-18); C REACTIVE PROTEIN QUANTITATIV 4.31 MG/DL (0.00-0.30); CALCIUM LEVEL 8.7 MG/DL (8.8-10.2); CARBON DIOXIDE LEVEL 29 MEQ/L (21-32); CHLORIDE LEVEL 107 MEQ/L (98-107); CREATININE FOR GFR 0.71 MG/DL (0.70-1.30); FERRITIN 107 NG/ML (26-388); GLOMERULAR FILTRATION RATE > 60.0 (>49); GLUCOSE, FASTING 90 MG/DL (70-100); LDH LACTATE DEHYDROGENASE 178 U/L (87-241); MAGNESIUM LEVEL 1.6 MG/DL (1.8-2.4); POTASSIUM SERUM 3.5 MEQ/L (3.5-5.1); SODIUM LEVEL 138 MEQ/L (136-145)
[2021-08-02] MEDS ORDERED: AZITHROMYCIN INJ 500 MG, VIAL MATE ADAPTER 1 EACH in NS 250 ML IV ONE (15:05)
[2021-08-02] MEDS ORDERED: cefTRIAXone SOD 2 GM in D5W MINI-BAG PLUS 50 ML IV ONE (15:05)
[2021-08-02] MEDS ORDERED: META28.32 PO (16:38)
[2021-08-02] MEDS ORDERED: VENTAER INH (16:38)
[2021-08-02] MEDS ORDERED: LACT10SO3 PO (16:38)
[2021-08-02] MEDS ORDERED: HOME MED LIST COMPLETE! XX SCH (16:40)
[2021-08-02] MEDS ORDERED: LevoFLOXacin IV 750 MG in IV 1 EA IV SCH (17:00)
[2021-08-02] MEDS ORDERED: MAG SULF 1GM/100ML (MAG RUN) 1 GM in IV 1 EA IV ONE (18:00)
[2021-08-02 19:05] VITALS: BP 104/55
[2021-08-02] MEDS: LACTOBACILLUS ACIDOPHILUS CAP (BACID) PO SCH (19:38)
[2021-08-02] MEDS: methylPREDNISolone 40MG 1ML VIAL IV SCH (19:38)
[2021-08-02] MEDS: IPRATROPIUM 0.5MG/ALBUTEROL 2.5MG INH SOL UD 3ML (DUONEB) NEB SCH (19:57)
[2021-08-02] MEDS: CHLORHEXIDINE GLUCONATE 0.12 % 15ML UDC (PERIDEX ORAL RINSE) SSP SCH (20:22)
[2021-08-02] MEDS: ATORVASTATIN 10 MG TAB PO SCH (20:23)
[2021-08-02] MEDS: METAMUCIL (PSYLLIUM) PACKET PO SCH (20:23)
[2021-08-02] MEDS: OLANZapine 10 MG TAB PO SCH (20:23)
[2021-08-02] MEDS: LINEZOLID 600MG TABLET (ZYVOX) PO SCH (20:23)
[2021-08-02] MEDS: risperiDONE 3 MG TAB PO SCH (20:23)
[2021-08-02] MEDS: DIVALPROEX 500 MG TAB PO SCH (20:23)
[2021-08-02] MEDS: traZODone 50 MG TAB PO SCH (20:23)
[2021-08-02] MEDS: LevoFLOXacin IV 750 MG in IV 1 EA IV SCH (20:58)
[2021-08-02 22:00] VITALS: BP_SYST 105; BP_SYST 97; BP_DIAS 51; BP_DIAS 55
[2021-08-03] MEDS: IPRATROPIUM 0.5MG/ALBUTEROL 2.5MG INH SOL UD 3ML (DUONEB) NEB SCH ×4 (01:14→19:30)
[2021-08-03 06:00] VITALS: BP 119/64
[2021-08-03 06:54] LABS: BASO % 0.1 % (0.0-1.0); HEMATOCRIT 30.7 % (42.0-52.0); HEMOGLOBIN 10.2 g/dl (13.5-17.5); LYMPH # 1.2 10^3/uL (1.5-5.0); LYMPH % 7.1 % (24.0-44.0); MEAN CORPUSCULAR HEMOGLOBIN 32.8 pg (27.0-33.0); MEAN CORPUSCULAR HGB CONC 33.2 g/dl (32.0-36.5); MEAN CORPUSCULAR VOLUME 98.7 fl (80.0-96.0); MONO # 0.8 10^3/uL (0.0-0.8); MONO % 4.7 % (2.0-8.0); NEUTROPHILS # 14.5 10^3/uL (1.5-8.5); NEUTROPHILS % 87.5 % (36.0-66.0); PLATELET COUNT, AUTOMATED 124 10^3/uL (150-450); RED BLOOD COUNT 3.11 10^6/uL (4.30-6.10); WHITE BLOOD COUNT 16.6 10^3/uL (4.0-10.0)
[2021-08-03 07:15] LABS: ALBUMIN 2.5 GM/DL (3.2-5.2); ALT/SGPT 23 U/L (12-78); BILIRUBIN,TOTAL 0.7 MG/DL (0.2-1.0); BLOOD UREA NITROGEN 17 MG/DL (7-18); CALCIUM LEVEL 8.2 MG/DL (8.8-10.2); CARBON DIOXIDE LEVEL 27 MEQ/L (21-32); CHLORIDE LEVEL 104 MEQ/L (98-107); CREATININE FOR GFR 0.68 MG/DL (0.70-1.30); GLOMERULAR FILTRATION RATE > 60.0 (>49); GLUCOSE, FASTING 129 MG/DL (70-100); PHOSPHORUS LEVEL 1.9 MG/DL (2.5-4.9); POTASSIUM SERUM 3.4 MEQ/L (3.5-5.1); SODIUM LEVEL 137 MEQ/L (136-145); TOTAL PROTEIN 5.3 GM/DL (6.4-8.2)
[2021-08-03] MEDS: OLANZapine 10 MG TAB PO SCH ×2 (08:57→21:32)
[2021-08-03] MEDS: LINEZOLID 600MG TABLET (ZYVOX) PO SCH (08:57)
[2021-08-03] MEDS: LACTOBACILLUS ACIDOPHILUS CAP (BACID) PO SCH (08:57)
[2021-08-03] MEDS: METAMUCIL (PSYLLIUM) PACKET PO SCH ×2 (08:58→21:31)
[2021-08-03] MEDS: methylPREDNISolone 40MG 1ML VIAL IV SCH (08:58)
[2021-08-03] MEDS: CHLORHEXIDINE GLUCONATE 0.12 % 15ML UDC (PERIDEX ORAL RINSE) SSP SCH ×2 (08:58→21:31)
[2021-08-03] MEDS: risperiDONE 1 MG TAB PO SCH (08:58)
[2021-08-03] MEDS: ENOXAPARIN 40MG/0.4ML SYRINGE (J1650 PER 10MG) SC SCH ×2 (09:00→09:04)
[2021-08-03 12:00] VITALS: BP 115/63
[2021-08-03] MEDS: KCL 10MEQ/100ML SWI (KRUN) 10 MEQ in IV 1 EA IV SCH ×2 (12:03→13:45)
[2021-08-03] MEDS ORDERED: POTASSIUM PHOSPHATE INJ 20 MMOL in D5W 250 ML IV ONE (14:00)
[2021-08-03] MEDS: DIVALPROEX 500 MG TAB PO SCH (21:32)
[2021-08-03] MEDS: risperiDONE 3 MG TAB PO SCH (21:32)
[2021-08-03] MEDS: ATORVASTATIN 10 MG TAB PO SCH (21:32)
[2021-08-03] MEDS: traZODone 50 MG TAB PO SCH (21:32)
[2021-08-03] MEDS: LevoFLOXacin IV 750 MG in IV 1 EA IV SCH (21:33)
[2021-08-03 22:00] VITALS: BP 102/58
[2021-08-04] MEDS: IPRATROPIUM 0.5MG/ALBUTEROL 2.5MG INH SOL UD 3ML (DUONEB) NEB SCH ×2 (01:28→07:23)
[2021-08-04 06:00] VITALS: BP 116/64
[2021-08-04 06:37] LABS: BASO % 0.1 % (0.0-1.0); HEMOGLOBIN 10.6 g/dl (13.5-17.5); LYMPH # 2.7 10^3/uL (1.5-5.0); LYMPH % 11.7 % (24.0-44.0); MEAN CORPUSCULAR HEMOGLOBIN 32.5 pg (27.0-33.0); MEAN CORPUSCULAR HGB CONC 33.1 g/dl (32.0-36.5); MEAN CORPUSCULAR VOLUME 98.2 fl (80.0-96.0); MONO % 7.8 % (2.0-8.0); NEUTROPHILS # 18.5 10^3/uL (1.5-8.5); NEUTROPHILS % 79.7 % (36.0-66.0); PLATELET COUNT, AUTOMATED 142 10^3/uL (150-450); RED BLOOD COUNT 3.26 10^6/uL (4.30-6.10); WHITE BLOOD COUNT 23.3 10^3/uL (4.0-10.0)
[2021-08-04 07:16] LABS: MONO # 1.8 10^3/uL (0.0-0.8)
[2021-08-04 07:29] LABS: BLOOD UREA NITROGEN 18 MG/DL (7-18); CALCIUM LEVEL 8.5 MG/DL (8.8-10.2); CARBON DIOXIDE LEVEL 27 MEQ/L (21-32); CHLORIDE LEVEL 108 MEQ/L (98-107); CREATININE FOR GFR 0.71 MG/DL (0.70-1.30); GLOMERULAR FILTRATION RATE > 60.0 (>49); GLUCOSE, FASTING 97 MG/DL (70-100); MAGNESIUM LEVEL 1.8 MG/DL (1.8-2.4); PHOSPHORUS LEVEL 3.2 MG/DL (2.5-4.9); SODIUM LEVEL 141 MEQ/L (136-145)
[2021-08-04] MEDS ORDERED: predniSONE 20 MG TAB PO SCH (09:00)
[2021-08-04] MEDS: risperiDONE 1 MG TAB PO SCH (09:46)
[2021-08-04] MEDS: METAMUCIL (PSYLLIUM) PACKET PO SCH (09:46)
[2021-08-04] MEDS: CHLORHEXIDINE GLUCONATE 0.12 % 15ML UDC (PERIDEX ORAL RINSE) SSP SCH (09:46)
[2021-08-04] MEDS: LACTOBACILLUS ACIDOPHILUS CAP (BACID) PO SCH (09:46)
[2021-08-04] MEDS: OLANZapine 10 MG TAB PO SCH (09:46)
[2021-08-04] MEDS: ENOXAPARIN 40MG/0.4ML SYRINGE (J1650 PER 10MG) SC SCH (09:47)
[2021-08-04] MEDS ORDERED: PRED10TA2 PO (10:33)
[2021-08-04] MEDS ORDERED: LEVO750T13 PO (10:36)
[2021-08-06 16:09] LABS: BODY FLUID CULTURE Not indicated. (.); LEGIONELLA ANTIGEN URINE Negative (Negative); ORGANISM ID Not indicated. (.); SPECIMEN SOURCE Urine (.); URINE STREP PNEUMONIAE ANTIGEN Negative (Negative)
== END 2021-08-04 11:50 | disposition home or self-care (01) | DRG 178 ==
LOC: EDBD 13:26 → M ED 13:26 → M ED INP 16:11 → M MSPAV 19:05
PROVIDERS: ADMIT Internal Medicine; ATTEND Internal Medicine
DX: J15.211 Pneumonia due to Methicillin susceptible Staphylococcus aureus (principal); J44.1 Chronic obstructive pulmonary disease with (acute) exacerbation; J44.0 Chronic obstructive pulmonary disease with (acute) lower respiratory infection; J14 Pneumonia due to Hemophilus influenzae; K59.09 Other constipation; E78.5 Hyperlipidemia, unspecified; G40.909 Epilepsy, unspecified, not intractable, without status epilepticus; F70 Mild intellectual disabilities; F42.9 Obsessive-compulsive disorder, unspecified; F20.9 Schizophrenia, unspecified; Z79.899 Other long term (current) drug therapy; Z88.8 Allergy status to other drugs, medicaments and biological substances; F17.200 Nicotine dependence, unspecified, uncomplicated

== ENCOUNTER → 2021-09-05 | Outpatient (CLI) | payer MEDICARE, MEDICAID ==
[~2021-09-05] MED LIST changes: +LACT10SO3 PO; +LEVO750T13 PO; +META28.32 PO; +VENTAER INH
[2021-09-05 12:55] LABS: BASO % 0.5 % (0.0-1.0); EOS # 0.1 10^3/uL (0.0-0.5); EOS % 1.4 % (0.0-3.0); HEMATOCRIT 35.8 % (42.0-52.0); HEMOGLOBIN 11.6 g/dl (13.5-17.5); LYMPH # 2.8 10^3/uL (1.5-5.0); LYMPH % 42.3 % (24.0-44.0); MEAN CORPUSCULAR HGB CONC 32.4 g/dl (32.0-36.5); MEAN CORPUSCULAR VOLUME 98.9 fl (80.0-96.0); MONO # 1.1 10^3/uL (0.0-0.8); MONO % 16.8 % (2.0-8.0); NEUTROPHILS # 2.6 10^3/uL (1.5-8.5); NEUTROPHILS % 38.7 % (36.0-66.0); PLATELET COUNT, AUTOMATED 146 10^3/uL (150-450); RED BLOOD COUNT 3.62 10^6/uL (4.30-6.10); WHITE BLOOD COUNT 6.6 10^3/uL (4.0-10.0)
== END ==
LOC: M WUC 08:52
PROVIDERS: ATTEND Family Medicine
DX: J15.9 Unspecified bacterial pneumonia (principal); D72.829 Elevated white blood cell count, unspecified

== ENCOUNTER → 2021-09-24 | Outpatient (CLI) | payer MEDICARE, MEDICAID | LOC: M WUC 08:22 | PROVIDERS: ATTEND Nurse Practitioner Family | DX: R50.9 Fever, unspecified (principal) ==

== ENCOUNTER 2021-10-17 08:29 | Inpatient (IN) | payer MEDICARE, MEDICAID ==
[~2021-10-17] VITALS: Ht 167.6 cm; Wt 65.8 kg
[2021-10-17] MEDS ORDERED: cefTRIAXone SOD 2 GM in D5W MINI-BAG PLUS 50 ML IV ONE (09:05)
[2021-10-17] MEDS ORDERED: NS 1,910 ML in IV 1 EA IV ONE (09:05)
[2021-10-17 09:43] LABS: BASO % 0.2 % (0.0-1.0); HEMATOCRIT 37.4 % (42.0-52.0); HEMOGLOBIN 12.7 g/dl (13.5-17.5); LYMPH # 0.3 10^3/uL (1.5-5.0); LYMPH % 3.8 % (24.0-44.0); MEAN CORPUSCULAR HEMOGLOBIN 32.2 pg (27.0-33.0); MEAN CORPUSCULAR VOLUME 94.7 fl (80.0-96.0); MONO # 0.5 10^3/uL (0.0-0.8); MONO % 7.8 % (2.0-8.0); NEUTROPHILS # 5.8 10^3/uL (1.5-8.5); NEUTROPHILS % 87.6 % (36.0-66.0); PLATELET COUNT, AUTOMATED 135 10^3/uL (150-450); RED BLOOD COUNT 3.95 10^6/uL (4.30-6.10); WHITE BLOOD COUNT 6.7 10^3/uL (4.0-10.0)
[2021-10-17 09:51] LABS: INR 1.07; PROTHROMBIN TIME 14.3 SECONDS (12.7-14.5)
[2021-10-17 09:52] LABS: CK-MB VALUE MASS 7.2 NG/ML (<3.6); MB/CK RELATIVE INDEX 3.08 (< OR =4); PARTIAL THROMBOPLASTIN TIME 36.5 SECONDS (25.9-37.0)
[2021-10-17 09:54] LABS: BLOOD UREA NITROGEN 21 MG/DL (7-18); CREATININE FOR GFR 0.94 MG/DL (0.70-1.30); GLUCOSE, FASTING 105 MG/DL (70-100)
[2021-10-17 09:55] LABS: ALBUMIN 3.1 GM/DL (3.2-5.2); ALT/SGPT 27 U/L (12-78); AMYLASE 47 U/L (25-115); BILIRUBIN,DIRECT 0.2 MG/DL (0.0-0.2); BILIRUBIN,TOTAL 0.6 MG/DL (0.2-1.0); C REACTIVE PROTEIN QUANTITATIV 1.29 MG/DL (0.00-0.30); CALCIUM LEVEL 8.4 MG/DL (8.8-10.2); CARBON DIOXIDE LEVEL 26 MEQ/L (21-32); CHLORIDE LEVEL 102 MEQ/L (98-107); GLOMERULAR FILTRATION RATE > 60.0 (>49); POTASSIUM SERUM 3.9 MEQ/L (3.5-5.1); SODIUM LEVEL 136 MEQ/L (136-145); TOTAL PROTEIN 5.9 GM/DL (6.4-8.2)
[2021-10-17 13:41] LABS: APPEARANCE, URINE CLEAR (CLEAR); BACTERIA, URINE AUTO NEGATIVE (NEGATIVE); BILIRUBIN, URINE AUTO NEGATIVE (NEGATIVE); BLOOD, URINE BLOOD NEGATIVE (NEGATIVE); COLOR, URINE YELLOW (YELLOW); GLUCOSE, URINE (UA) AUTO NEGATIVE (NEGATIVE); KETONE, URINE AUTO TRACE mg/dL (NEGATIVE); LEUKOCYTE ESTERASE, URINE AUTO NEGATIVE (NEGATIVE); NITRITE, URINE AUTO NEGATIVE (NEGATIVE); PROTEIN, URINE AUTO NEGATIVE (NEGATIVE); RBC, URINE AUTO 6 /HPF (0-3); SPECIFIC GRAVITY URINE AUTO 1.017 (1.002-1.035); SQUAMOUS EPITHELIAL CELL UR AU 0 /HPF (0-6); UROBILINOGEN, URINE AUTO 0.2 mg/dL (0.0-2.0); WBC, URINE AUTO 1 /HPF (0-3)
[2021-10-17] MEDS ORDERED: HOME MED LIST COMPLETE! XX SCH (15:10)
[2021-10-17] MEDS ORDERED: ISOVUE-370 76% 100ML VIAL As Ordered ONE (16:53)
[2021-10-17] MEDS ORDERED: ACETAMINOPHEN TAB 650MG DOSE (2X325MG) PO ONE ×2 (17:15→20:55)
[2021-10-17] MEDS: LACTULOSE 20 GM/30 ML SYRUP UD PO SCH (17:22)
[2021-10-17] MEDS: NS 1,000 ML IV SCH (19:06)
[2021-10-17] MEDS ORDERED: IBUPROFEN 400MG TAB PO ONE (19:10)
[2021-10-17] MEDS ORDERED: IBUPROFEN 800 MG TAB PO PRN (19:10)
[2021-10-17 23:08] VITALS: BP 112/61
[2021-10-17] MEDS: OLANZapine 10 MG TAB PO SCH (23:32)
[2021-10-17] MEDS: risperiDONE 3 MG TAB PO SCH (23:32)
[2021-10-17] MEDS: METAMUCIL (PSYLLIUM) PACKET PO SCH (23:32)
[2021-10-17] MEDS: ATORVASTATIN 10 MG TAB PO SCH (23:32)
[2021-10-17] MEDS: DIVALPROEX 500 MG TAB PO SCH (23:32)
[2021-10-17] MEDS: PANTOPRAZOLE 40MG TAB (PROTONIX) PO SCH (23:32)
[2021-10-18] MEDS: NS 1,000 ML IV SCH ×3 (04:24→16:57)
[2021-10-18 05:36] VITALS: BP 82/46
[2021-10-18] MEDS ORDERED: NS 1,000 ML IV ONE (05:50)
[2021-10-18] MEDS: DOXYCYCLINE HYCLATE 100 MG in D5W MINI-BAG PLUS 100 ML IV SCH ×2 (06:00→16:57)
[2021-10-18 06:22] VITALS: BP 103/61
[2021-10-18 06:24] LABS: HEMATOCRIT 30.9 % (42.0-52.0); MEAN CORPUSCULAR HEMOGLOBIN 32.4 pg (27.0-33.0); MEAN CORPUSCULAR HGB CONC 34.3 g/dl (32.0-36.5); MEAN CORPUSCULAR VOLUME 94.5 fl (80.0-96.0); RED BLOOD COUNT 3.27 10^6/uL (4.30-6.10); WHITE BLOOD COUNT 9.9 10^3/uL (4.0-10.0)
[2021-10-18 06:41] LABS: BLOOD UREA NITROGEN 19 MG/DL (7-18); CALCIUM LEVEL 7.7 MG/DL (8.8-10.2); CARBON DIOXIDE LEVEL 24 MEQ/L (21-32); CHLORIDE LEVEL 107 MEQ/L (98-107); CREATININE FOR GFR 0.66 MG/DL (0.70-1.30); GLOMERULAR FILTRATION RATE > 60.0 (>49); GLUCOSE, FASTING 86 MG/DL (70-100); POTASSIUM SERUM 3.8 MEQ/L (3.5-5.1); SODIUM LEVEL 135 MEQ/L (136-145)
[2021-10-18 06:59] LABS: VENOUS BASE EXCESS -1.5 (-2.0-2.0); VENOUS HCO3 22.4 MEQ/L (23.0-27.0); VENOUS O2 SATURATION 98.8 % (60.0-80.0); VENOUS PARTIAL PRESSURE O2 155.4 mmHg (30.0-50.0); VENOUS PH 7.425 UNITS (7.330-7.430); VENOUS STANDARD HCO3 23.3 MEQ/L; VENOUS TOTAL CO2 23.5 MEQ/L (24.0-28.0)
[2021-10-18 07:06] VITALS: BP 90/48
[2021-10-18 07:08] LABS: HEMOGLOBIN 10.6 g/dl (13.5-17.5)
[2021-10-18 07:14] LABS: LYMPHOCYTES 3 % (16-44); METAMYELOCYTES 5 % (0-0); MONOCYTES 3 % (0-5); NEUTROPHILS 50 % (28-66)
[2021-10-18 07:15] LABS: PLATELET CLUMPS SMALL AMT; PLATELET ESTIMATE MARKED DECREASE (NORMAL)
[2021-10-18 07:17] LABS: POIKILOCYTOSIS 1+
[2021-10-18] MEDS ORDERED: ENOXAPARIN 40MG/0.4ML SYRINGE (J1650 PER 10MG) SC SCH (09:00)
[2021-10-18] MEDS: LACTULOSE 20 GM/30 ML SYRUP UD PO SCH (10:25)
[2021-10-18] MEDS: OLANZapine 10 MG TAB PO SCH ×2 (10:26→21:25)
[2021-10-18] MEDS: METAMUCIL (PSYLLIUM) PACKET PO SCH ×2 (10:26→21:00)
[2021-10-18] MEDS: cefTRIAXone SOD 2 GM in D5W MINI-BAG PLUS 50 ML IV SCH (10:27)
[2021-10-18] MEDS: risperiDONE 1 MG TAB PO SCH (10:32)
[2021-10-18] MEDS ORDERED: ALBUTEROL SULFATE 2.5 MG/0.5 ML INH NEB SOLN NEB PRN (10:45)
[2021-10-18 11:47] LABS: PLTBLUE- EDTA FREE MACHINE 66 10^3/uL (172-450)
[2021-10-18 11:48] LABS: PLTBLUE- EDTA FREE CALC 73 K/mm3 (172-450)
[2021-10-18 18:00] VITALS: BP_SYST 106; BP_SYST 111; BP_SYST 112; BP_DIAS 60; BP_DIAS 61; BP_DIAS 64
[2021-10-18] MEDS: ACETAMINOPHEN TAB 650MG DOSE (2X325MG) PO PRN (18:41)
[2021-10-18] MEDS: traZODone 50 MG TAB PO SCH (21:24)
[2021-10-18] MEDS: DIVALPROEX 500 MG TAB PO SCH (21:24)
[2021-10-18] MEDS: ATORVASTATIN 10 MG TAB PO SCH (21:25)
[2021-10-18] MEDS: risperiDONE 3 MG TAB PO SCH (21:25)
[2021-10-18] MEDS: PANTOPRAZOLE 40MG TAB (PROTONIX) PO SCH (21:25)
[2021-10-18 22:00] VITALS: BP 111/63
[2021-10-19] MEDS: NS 1,000 ML IV SCH (04:02)
[2021-10-19 04:49] VITALS: BP_SYST 118; BP_SYST 125; BP_DIAS 69; BP_DIAS 71; BP_DIAS 77
[2021-10-19] MEDS: DOXYCYCLINE HYCLATE 100 MG in D5W MINI-BAG PLUS 100 ML IV SCH ×2 (05:12→17:56)
[2021-10-19 05:48] VITALS: BP 124/75
[2021-10-19 06:37] LABS: HEMATOCRIT 29.3 % (42.0-52.0); HEMOGLOBIN 10.2 g/dl (13.5-17.5); MEAN CORPUSCULAR HEMOGLOBIN 32.8 pg (27.0-33.0); MEAN CORPUSCULAR HGB CONC 34.8 g/dl (32.0-36.5); MEAN CORPUSCULAR VOLUME 94.2 fl (80.0-96.0); RED BLOOD COUNT 3.11 10^6/uL (4.30-6.10); WHITE BLOOD COUNT 7.7 10^3/uL (4.0-10.0)
[2021-10-19 07:03] LABS: BLOOD UREA NITROGEN 10 MG/DL (7-18); CARBON DIOXIDE LEVEL 26 MEQ/L (21-32); CHLORIDE LEVEL 105 MEQ/L (98-107); CREATININE FOR GFR 0.62 MG/DL (0.70-1.30); GLOMERULAR FILTRATION RATE > 60.0 (>49); GLUCOSE, FASTING 85 MG/DL (70-100); POTASSIUM SERUM 3.7 MEQ/L (3.5-5.1); SODIUM LEVEL 137 MEQ/L (136-145)
[2021-10-19 07:19] LABS: PLATELET COUNT, AUTOMATED 67 10^3/uL (150-450)
[2021-10-19 07:24] LABS: BASOPHILS 1 % (0-1); LYMPHOCYTES 21 % (16-44); METAMYELOCYTES 2 % (0-0); MONOCYTES 6 % (0-5); NEUTROPHILS 52 % (28-66); PLATELET ESTIMATE DECREASED (NORMAL)
[2021-10-19 07:25] LABS: POIKILOCYTOSIS 1+
[2021-10-19 10:00] VITALS: BP_SYST 113; BP_SYST 115; BP_SYST 117; BP_DIAS 54; BP_DIAS 61
[2021-10-19] MEDS: cefTRIAXone SOD 2 GM in D5W MINI-BAG PLUS 50 ML IV SCH (10:35)
[2021-10-19] MEDS: LACTULOSE 20 GM/30 ML SYRUP UD PO SCH (10:35)
[2021-10-19] MEDS: risperiDONE 1 MG TAB PO SCH (10:36)
[2021-10-19] MEDS: OLANZapine 10 MG TAB PO SCH ×2 (10:36→20:43)
[2021-10-19] MEDS: METAMUCIL (PSYLLIUM) PACKET PO SCH ×2 (10:36→20:46)
[2021-10-19] MEDS: ACETAMINOPHEN TAB 650MG DOSE (2X325MG) PO PRN ×2 (10:51→18:34)
[2021-10-19 14:00] VITALS: BP 93/63
[2021-10-19 18:00] VITALS: BP 103/62
[2021-10-19 19:56] VITALS: BP 105/59
[2021-10-19] MEDS: risperiDONE 3 MG TAB PO SCH (20:43)
[2021-10-19] MEDS: PANTOPRAZOLE 40MG TAB (PROTONIX) PO SCH (20:43)
[2021-10-19] MEDS: ATORVASTATIN 10 MG TAB PO SCH (20:43)
[2021-10-19] MEDS: DIVALPROEX 500 MG TAB PO SCH (20:44)
[2021-10-19] MEDS: traZODone 50 MG TAB PO SCH (20:44)
[2021-10-20 00:55] VITALS: BP_SYST 109; BP_SYST 115; BP_SYST 116; BP_DIAS 53; BP_DIAS 63; BP_DIAS 64
[2021-10-20 05:16] VITALS: BP 116/66
[2021-10-20] MEDS: DOXYCYCLINE HYCLATE 100 MG in D5W MINI-BAG PLUS 100 ML IV SCH ×2 (05:20→18:26)
[2021-10-20 06:20] LABS: BASO % 0.2 % (0.0-1.0); EOS % 0.5 % (0.0-3.0); HEMOGLOBIN 10.6 g/dl (13.5-17.5); LYMPH # 1.4 10^3/uL (1.5-5.0); LYMPH % 16.5 % (24.0-44.0); MEAN CORPUSCULAR HGB CONC 34.2 g/dl (32.0-36.5); MEAN CORPUSCULAR VOLUME 93.7 fl (80.0-96.0); MONO # 1.3 10^3/uL (0.0-0.8); MONO % 15.4 % (2.0-8.0); NEUTROPHILS # 5.6 10^3/uL (1.5-8.5); NEUTROPHILS % 66.9 % (36.0-66.0); RED BLOOD COUNT 3.31 10^6/uL (4.30-6.10); WHITE BLOOD COUNT 8.4 10^3/uL (4.0-10.0)
[2021-10-20 06:25] LABS: PLATELET COUNT, AUTOMATED 73 10^3/uL (150-450)
[2021-10-20 06:42] LABS: BLOOD UREA NITROGEN 10 MG/DL (7-18); CALCIUM LEVEL 8.5 MG/DL (8.8-10.2); CARBON DIOXIDE LEVEL 27 MEQ/L (21-32); CHLORIDE LEVEL 105 MEQ/L (98-107); CREATININE FOR GFR 0.58 MG/DL (0.70-1.30); GLOMERULAR FILTRATION RATE > 60.0 (>49); GLUCOSE, FASTING 92 MG/DL (70-100); POTASSIUM SERUM 3.3 MEQ/L (3.5-5.1); SODIUM LEVEL 138 MEQ/L (136-145)
[2021-10-20] MEDS ORDERED: POTASSIUM CHLORIDE 10MEQ SR TABLET PO ONE (07:10)
[2021-10-20] MEDS: risperiDONE 1 MG TAB PO SCH (08:16)
[2021-10-20] MEDS: METAMUCIL (PSYLLIUM) PACKET PO SCH ×2 (08:16→20:54)
[2021-10-20] MEDS: OLANZapine 10 MG TAB PO SCH ×2 (08:16→20:53)
[2021-10-20] MEDS: LACTULOSE 20 GM/30 ML SYRUP UD PO SCH (08:17)
[2021-10-20] MEDS: cefTRIAXone SOD 2 GM in D5W MINI-BAG PLUS 50 ML IV SCH (10:36)
[2021-10-20 10:58] VITALS: BP_SYST 130; BP_SYST 136; BP_SYST 138; BP_DIAS 62; BP_DIAS 68; BP_DIAS 70
[2021-10-20] MEDS: ACETAMINOPHEN TAB 650MG DOSE (2X325MG) PO PRN (11:18)
[2021-10-20 14:00] VITALS: BP 109/64
[2021-10-20] MEDS ORDERED: VARIBAR PUDDING 40% w/v 230ML TUBE As Ordered ONE (14:19)
[2021-10-20] MEDS ORDERED: E-Z-PAQUE 96% w/w SUSP 176GM BTL As Ordered ONE (14:20)
[2021-10-20] MEDS ORDERED: BARIUM SULFATE 700 MG TABLET (E-Z-DISK) As Ordered ONE (14:20)
[2021-10-20] MEDS ORDERED: VARIBAR NECTAR 40% w/v 240ML SUSP BTL As Ordered ONE (14:20)
[2021-10-20 20:00] VITALS: BP_SYST 121; BP_SYST 122; BP_DIAS 69; BP_DIAS 71; BP_DIAS 72
[2021-10-20] MEDS: DIVALPROEX 500 MG TAB PO SCH (20:53)
[2021-10-20] MEDS: PANTOPRAZOLE 40MG TAB (PROTONIX) PO SCH (20:54)
[2021-10-20] MEDS: risperiDONE 3 MG TAB PO SCH (20:54)
[2021-10-20] MEDS: ATORVASTATIN 10 MG TAB PO SCH (20:54)
[2021-10-20] MEDS: traZODone 50 MG TAB PO SCH (20:54)
[2021-10-21 04:59] VITALS: BP 128/68
[2021-10-21] MEDS: DOXYCYCLINE HYCLATE 100 MG in D5W MINI-BAG PLUS 100 ML IV SCH (05:36)
[2021-10-21 06:17] LABS: BASO % 0.3 % (0.0-1.0); EOS # 0.1 10^3/uL (0.0-0.5); EOS % 0.8 % (0.0-3.0); HEMATOCRIT 30.7 % (42.0-52.0); HEMOGLOBIN 10.4 g/dl (13.5-17.5); LYMPH # 1.4 10^3/uL (1.5-5.0); LYMPH % 23.2 % (24.0-44.0); MEAN CORPUSCULAR HEMOGLOBIN 31.4 pg (27.0-33.0); MEAN CORPUSCULAR HGB CONC 33.9 g/dl (32.0-36.5); MEAN CORPUSCULAR VOLUME 92.7 fl (80.0-96.0); MONO % 17.3 % (2.0-8.0); NEUTROPHILS # 3.5 10^3/uL (1.5-8.5); NEUTROPHILS % 58.1 % (36.0-66.0); RED BLOOD COUNT 3.31 10^6/uL (4.30-6.10)
[2021-10-21 06:18] LABS: PLATELET COUNT, AUTOMATED 80 10^3/uL (150-450)
[2021-10-21 06:44] LABS: BLOOD UREA NITROGEN 10 MG/DL (7-18); CALCIUM LEVEL 8.1 MG/DL (8.8-10.2); CARBON DIOXIDE LEVEL 30 MEQ/L (21-32); CHLORIDE LEVEL 105 MEQ/L (98-107); CREATININE FOR GFR 0.63 MG/DL (0.70-1.30); GLOMERULAR FILTRATION RATE > 60.0 (>49); GLUCOSE, FASTING 102 MG/DL (70-100); POTASSIUM SERUM 3.3 MEQ/L (3.5-5.1); SODIUM LEVEL 139 MEQ/L (136-145)
[2021-10-21] MEDS: LACTULOSE 20 GM/30 ML SYRUP UD PO SCH (09:50)
[2021-10-21] MEDS: OLANZapine 10 MG TAB PO SCH ×2 (09:50→20:33)
[2021-10-21] MEDS: risperiDONE 1 MG TAB PO SCH (09:50)
[2021-10-21] MEDS: METAMUCIL (PSYLLIUM) PACKET PO SCH ×2 (09:50→20:34)
[2021-10-21] MEDS: cefTRIAXone SOD 2 GM in D5W MINI-BAG PLUS 50 ML IV SCH (09:50)
[2021-10-21] MEDS ORDERED: POTASSIUM CHLORIDE 10MEQ SR TABLET PO ONE (10:40)
[2021-10-21 10:43] VITALS: BP_SYST 113; BP_SYST 91; BP_SYST 92; BP_DIAS 59; BP_DIAS 61; BP_DIAS 64
[2021-10-21] MEDS ORDERED: VARIBAR NECTAR 40% w/v 240ML SUSP BTL As Ordered ONE (11:02)
[2021-10-21] MEDS ORDERED: E-Z-PAQUE 96% w/w SUSP 176GM BTL As Ordered ONE (11:02)
[2021-10-21] MEDS ORDERED: BARIUM SULFATE 700 MG TABLET (E-Z-DISK) As Ordered ONE (11:02)
[2021-10-21] MEDS ORDERED: VARIBAR PUDDING 40% w/v 230ML TUBE As Ordered ONE (11:02)
[2021-10-21] MEDS: AMPICILLIN SOD/SULBACTAM SOD 3 GM in D5W MINI-BAG PLUS 100 ML IV SCH ×3 (12:43→23:26)
[2021-10-21 14:00] VITALS: BP 120/65
[2021-10-21] MEDS: PANTOPRAZOLE 40MG TAB (PROTONIX) PO SCH (20:33)
[2021-10-21] MEDS: DIVALPROEX 500 MG TAB PO SCH (20:33)
[2021-10-21] MEDS: risperiDONE 3 MG TAB PO SCH (20:33)
[2021-10-21] MEDS: ATORVASTATIN 10 MG TAB PO SCH (20:33)
[2021-10-21] MEDS: traZODone 50 MG TAB PO SCH (20:34)
[2021-10-21 22:00] VITALS: BP 128/68
[2021-10-22 05:54] LABS: BASO % 0.5 % (0.0-1.0); EOS # 0.1 10^3/uL (0.0-0.5); EOS % 1.7 % (0.0-3.0); HEMATOCRIT 31.6 % (42.0-52.0); HEMOGLOBIN 10.7 g/dl (13.5-17.5); LYMPH # 1.8 10^3/uL (1.5-5.0); LYMPH % 30.3 % (24.0-44.0); MEAN CORPUSCULAR HGB CONC 33.9 g/dl (32.0-36.5); MEAN CORPUSCULAR VOLUME 91.6 fl (80.0-96.0); MONO # 1.5 10^3/uL (0.0-0.8); MONO % 24.9 % (2.0-8.0); NEUTROPHILS # 2.4 10^3/uL (1.5-8.5); NEUTROPHILS % 40.7 % (36.0-66.0); RED BLOOD COUNT 3.45 10^6/uL (4.30-6.10); WHITE BLOOD COUNT 5.9 10^3/uL (4.0-10.0)
[2021-10-22] MEDS: AMPICILLIN SOD/SULBACTAM SOD 3 GM in D5W MINI-BAG PLUS 100 ML IV SCH ×2 (05:54→12:11)
[2021-10-22 05:58] LABS: PLATELET COUNT, AUTOMATED 97 10^3/uL (150-450)
[2021-10-22 06:00] VITALS: BP 119/62
[2021-10-22 06:19] LABS: BLOOD UREA NITROGEN 11 MG/DL (7-18); CALCIUM LEVEL 8.8 MG/DL (8.8-10.2); CARBON DIOXIDE LEVEL 33 MEQ/L (21-32); CHLORIDE LEVEL 104 MEQ/L (98-107); CREATININE FOR GFR 0.68 MG/DL (0.70-1.30); GLOMERULAR FILTRATION RATE > 60.0 (>49); GLUCOSE, FASTING 82 MG/DL (70-100); POTASSIUM SERUM 4.2 MEQ/L (3.5-5.1); SODIUM LEVEL 141 MEQ/L (136-145)
[2021-10-22] MEDS: risperiDONE 1 MG TAB PO SCH (08:50)
[2021-10-22] MEDS: LACTULOSE 20 GM/30 ML SYRUP UD PO SCH (08:50)
[2021-10-22] MEDS: OLANZapine 10 MG TAB PO SCH (08:50)
[2021-10-22] MEDS: METAMUCIL (PSYLLIUM) PACKET PO SCH (08:50)
[2021-10-22 09:00] VITALS: BP_SYST 110; BP_SYST 120; BP_SYST 122; BP_DIAS 64; BP_DIAS 70; BP_DIAS 80
[2021-10-22] MEDS ORDERED: AMOX875T2 PO (11:44)
== END 2021-10-22 15:35 | disposition home or self-care (01) | DRG 871 ==
LOC: M ED 08:29 → EDBD 08:29 → M ED INP 16:34 → ENRESERV 21:01 → M MSPAV 22:52
PROVIDERS: ADMIT Internal Medicine Nephrology; ATTEND Internal Medicine
DX: A41.9 Sepsis, unspecified organism (principal); J69.0 Pneumonitis due to inhalation of food and vomit; G40.909 Epilepsy, unspecified, not intractable, without status epilepticus; J44.9 Chronic obstructive pulmonary disease, unspecified; F20.9 Schizophrenia, unspecified; I10 Essential (primary) hypertension; D69.6 Thrombocytopenia, unspecified; F70 Mild intellectual disabilities; F42.9 Obsessive-compulsive disorder, unspecified; Z88.8 Allergy status to other drugs, medicaments and biological substances; Z79.899 Other long term (current) drug therapy; K59.00 Constipation, unspecified; K40.90 Unilateral inguinal hernia, without obstruction or gangrene, not specified as recurrent

== ENCOUNTER → 2021-12-17 | Outpatient (CLI) | payer MEDICARE, MEDICAID ==
[~2021-12-17] MED LIST changes: +AMOX875T2 PO; +LEVO1TAB40 PO; -LEVO750T13 PO
[2021-12-17 20:33] LABS: BASO % 0.6 % (0.0-1.0); EOS # 0.1 10^3/uL (0.0-0.5); EOS % 1.5 % (0.0-3.0); HEMATOCRIT 36.1 % (42.0-52.0); HEMOGLOBIN 11.7 g/dl (13.5-17.5); LYMPH # 1.6 10^3/uL (1.5-5.0); LYMPH % 24.1 % (24.0-44.0); MEAN CORPUSCULAR HEMOGLOBIN 31.7 pg (27.0-33.0); MEAN CORPUSCULAR HGB CONC 32.4 g/dl (32.0-36.5); MEAN CORPUSCULAR VOLUME 97.8 fl (80.0-96.0); MONO % 14.5 % (2.0-8.0); NEUTROPHILS # 3.9 10^3/uL (1.5-8.5); NEUTROPHILS % 58.7 % (36.0-66.0); PLATELET COUNT, AUTOMATED 177 10^3/uL (150-450); RED BLOOD COUNT 3.69 10^6/uL (4.30-6.10); WHITE BLOOD COUNT 6.6 10^3/uL (4.0-10.0)
[2021-12-17 20:55] LABS: ERYTHROCYTE SEDIMENTATION RATE 12 mm/hr (0-20)
[2021-12-17 21:05] LABS: ALBUMIN 3.1 GM/DL (3.2-5.2); ALT/SGPT 29 U/L (12-78); BILIRUBIN,TOTAL 0.4 MG/DL (0.2-1.0); BLOOD UREA NITROGEN 23 MG/DL (7-18); CALCIUM LEVEL 9.3 MG/DL (8.8-10.2); CARBON DIOXIDE LEVEL 34 MEQ/L (21-32); CHLORIDE LEVEL 103 MEQ/L (98-107); CREATININE FOR GFR 1.05 MG/DL (0.70-1.30); GLOMERULAR FILTRATION RATE > 60.0 (>49); GLUCOSE, FASTING 107 MG/DL (70-100); POTASSIUM SERUM 4.4 MEQ/L (3.5-5.1); SODIUM LEVEL 141 MEQ/L (136-145); TOTAL PROTEIN 6.6 GM/DL (6.4-8.2)
== END ==
LOC: M WUC 15:22
PROVIDERS: ATTEND Family Medicine
DX: I95.9 Hypotension, unspecified (principal); Z87.01 Personal history of pneumonia (recurrent); R53.83 Other fatigue

== ENCOUNTER 2022-03-29 18:54 | Emergency (ER) | payer MEDICARE, MEDICAID ==
[~2022-03-29] VITALS: Ht 170.2 cm; Wt 59.1 kg
[~2022-03-29 18:54] MED LIST changes: +ALBU6.7H6 INH; -DOXY-350 PO; +DOXY-444 PO; -PROV108A INH
[2022-03-29] MEDS ORDERED: ACETAMINOPHEN 325 MG TAB PO ONE (19:25)
[2022-03-29] MEDS ORDERED: NS 1,770 ML in IV 1 EA IV ONE (19:25)
[2022-03-29 19:47] LABS: VENOUS BASE EXCESS 1.3 (-2.0-2.0); VENOUS HCO3 25.8 MEQ/L (23.0-27.0); VENOUS O2 SATURATION 83.7 % (60.0-80.0); VENOUS PARTIAL PRESSURE CO2 40.3 mmHg (38.0-50.0); VENOUS PARTIAL PRESSURE O2 47.1 mmHg (30.0-50.0); VENOUS PH 7.424 UNITS (7.330-7.430); VENOUS STANDARD HCO3 25.4 MEQ/L
[2022-03-29 19:54] LABS: BASO % 0.2 % (0.0-1.0); EOS % 0.1 % (0.0-3.0); HEMATOCRIT 33.7 % (42.0-52.0); HEMOGLOBIN 11.1 g/dl (13.5-17.5); LYMPH # 0.7 10^3/uL (1.5-5.0); LYMPH % 6.3 % (24.0-44.0); MEAN CORPUSCULAR HEMOGLOBIN 31.2 pg (27.0-33.0); MEAN CORPUSCULAR HGB CONC 32.9 g/dl (32.0-36.5); MEAN CORPUSCULAR VOLUME 94.7 fl (80.0-96.0); MONO # 1.4 10^3/uL (0.0-0.8); MONO % 11.4 % (2.0-8.0); NEUTROPHILS # 9.6 10^3/uL (1.5-8.5); NEUTROPHILS % 81.5 % (36.0-66.0); PLATELET COUNT, AUTOMATED 153 10^3/uL (150-450); RED BLOOD COUNT 3.56 10^6/uL (4.30-6.10); WHITE BLOOD COUNT 11.8 10^3/uL (4.0-10.0)
[2022-03-29 20:07] LABS: INR 1.08; PROTHROMBIN TIME 14.2 SECONDS (12.5-14.5)
[2022-03-29 20:08] LABS: PARTIAL THROMBOPLASTIN TIME 30.9 SECONDS (24.8-34.2)
[2022-03-29 20:25] LABS: CK-MB VALUE MASS 4.4 NG/ML (<3.6); MB/CK RELATIVE INDEX 4.63 (< OR =4)
[2022-03-29 20:27] LABS: RSV AMPLIFICATION NEGATIVE (NEGATIVE)
[2022-03-29 20:27] LABS: ALBUMIN 2.9 GM/DL (3.2-5.2); ALT/SGPT 24 U/L (12-78); AMYLASE 65 U/L (25-115); BILIRUBIN,DIRECT 0.1 MG/DL (0.0-0.2); BILIRUBIN,TOTAL 0.5 MG/DL (0.2-1.0); BLOOD UREA NITROGEN 25 MG/DL (7-18); CALCIUM LEVEL 8.3 MG/DL (8.8-10.2); CARBON DIOXIDE LEVEL 26 MEQ/L (21-32); CHLORIDE LEVEL 108 MEQ/L (98-107); GLOMERULAR FILTRATION RATE > 60.0 (>49); GLUCOSE, FASTING 91 MG/DL (70-100); SODIUM LEVEL 140 MEQ/L (136-145)
[2022-03-29 21:58] LABS: APPEARANCE, URINE MANUAL CLEAR (CLEAR); BILIRUBIN, URINE MANUAL NEGATIVE (NEGATIVE); BLOOD URINE MANUAL TRACE (NEGATIVE); COLOR, URINE MANUAL LT YELLOW (YELLOW); GLUCOSE, URINE (UA) MANUAL NEGATIVE (NEGATIVE); KETONE, URINE MANUAL 1+ mg/dL (NEGATIVE); LEUKOCYTE ESTERASE, URINE MAN NEGATIVE (NEGATIVE); NITRITE, URINE MANUAL NEGATIVE (NEGATIVE); PROTEIN, URINE MANUAL NEGATIVE (NEGATIVE); UROBILINOGEN, URINE MANUAL NORMAL (NORMAL)
[2022-03-29] MEDS ORDERED: cefTRIAXone SOD 1 GM in D5W MINI-BAG PLUS 50 ML IV ONE (22:10)
[2022-03-29] MEDS ORDERED: AZITHROMYCIN 250MG TABLET PO ONE (22:10)
[2022-03-29 22:13] LABS: BACTERIA, URINE NONE SEEN; RBC, URINE 0-1 /hpf (0-3); SQUAMOUS EPITHELIAL CELL URINE NONE SEEN /hpf (SMALL AMT); WBC, URINE NONE SEEN /hpf (0-3)
[2022-03-29] MEDS ORDERED: ZITHTAB PO (22:17)
[2022-03-29] MEDS ORDERED: CEFD300C PO (22:17)
[2022-03-29 22:45] VITALS: BP 99/58
== END 2022-03-30 00:05 | disposition home or self-care (01) ==
LOC: M ED 18:54
DX: J18.9 Pneumonia, unspecified organism (principal); I51.7 Cardiomegaly; J44.9 Chronic obstructive pulmonary disease, unspecified; F20.9 Schizophrenia, unspecified; K59.00 Constipation, unspecified; Z79.51 Long term (current) use of inhaled steroids; Z79.899 Other long term (current) drug therapy
CPT/HCPCS: 51701; 71045; 80048; 80076; 81000; 82150; 82550; 82553; 82803; 83605; 84484; 85025; 85610; 85730; 86140; 86850; 86900; 86901; 87040; 87086; 87631; 93005; 93041; 94760; 96365; 99285; J0696

== ENCOUNTER → 2022-04-27 | Outpatient (CLI) | payer MEDICARE, MEDICAID ==
[~2022-04-27] MED LIST changes: +CEFD300C PO
[2022-04-27 12:57] LABS: ALBUMIN 3.4 G/DL (3.2-5.2); ALKALINE PHOSPHATASE 66 U/L (46-116); ALT/SGPT 26 U/L (7.0-40); AST/SGOT 28 U/L (<34); BILIRUBIN,TOTAL 0.5 MG/DL (0.3-1.2); BLOOD UREA NITROGEN 20 MG/DL (9-23); CALCIUM LEVEL 9.2 MG/DL (8.3-10.6); CARBON DIOXIDE LEVEL 32 MMOL/L (20-31); CHLORIDE LEVEL 102 MMOL/L (98-107); CHOLESTEROL LEVEL 113 MG/DL (<200); CHOLESTEROL RISK RATIO 2.29 (<5); CREATININE FOR GFR 0.88 MG/DL (0.70-1.30); GLOMERULAR FILTRATION RATE > 60.0 (>49); GLUCOSE, FASTING 131 MG/DL (74-106); HDL CHOLESTEROL 49.2 MG/DL (>40); LDL CHOLESTEROL 51.2 MG/DL (<100); NON-HDL-C 64 MG/DL; SODIUM LEVEL 142 MMOL/L (136-145); TOTAL PROTEIN 6.2 G/DL (5.7-8.2); TRIGLYCERIDES LEVEL 63 MG/DL (<150)
== END ==
LOC: M WUC 09:06
PROVIDERS: ATTEND Family Medicine
DX: E78.5 Hyperlipidemia, unspecified (principal)

== ENCOUNTER → 2022-06-02 | Outpatient (CLI) | payer MEDICARE, MEDICAID | LOC: M RAD 13:25 | PROVIDERS: ATTEND Family Medicine | DX: Z12.2 Encounter for screening for malignant neoplasm of respiratory organs (principal); F17.211 Nicotine dependence, cigarettes, in remission ==

== ENCOUNTER 2022-06-10 17:41 | Emergency (ER) | payer MEDICARE, MEDICAID ==
[~2022-06-10] VITALS: Ht 170.2 cm; Wt 65.8 kg
[2022-06-10] MEDS ORDERED: METOPROLOL TART 50 MG TAB PO ONE (19:00)
[2022-06-10 19:10] LABS: BASO % 0.2 % (0.0-1.0); EOS % 0.2 % (0.0-3.0); HEMATOCRIT 37.1 % (42.0-52.0); HEMOGLOBIN 12.5 g/dl (13.5-17.5); LYMPH # 1.2 10^3/uL (1.5-5.0); LYMPH % 9.7 % (24.0-44.0); MEAN CORPUSCULAR HEMOGLOBIN 32.3 pg (27.0-33.0); MEAN CORPUSCULAR HGB CONC 33.7 g/dl (32.0-36.5); MEAN CORPUSCULAR VOLUME 95.9 fl (80.0-96.0); MONO # 1.4 10^3/uL (0.0-0.8); MONO % 11.5 % (2.0-8.0); NEUTROPHILS # 9.3 10^3/uL (1.5-8.5); PLATELET COUNT, AUTOMATED 141 10^3/uL (150-450); RED BLOOD COUNT 3.87 10^6/uL (4.30-6.10)
[2022-06-10 19:24] VITALS: BP 140/80
[2022-06-10 19:30] LABS: ALBUMIN 3.6 G/DL (3.2-5.2); ALKALINE PHOSPHATASE 73 U/L (46-116); ALT/SGPT 32 U/L (7.0-40); AST/SGOT 34 U/L (<34); BILIRUBIN,DIRECT 0.3 MG/DL (<0.4); BILIRUBIN,TOTAL 0.6 MG/DL (0.3-1.2); BLOOD UREA NITROGEN 19 MG/DL (9-23); CARBON DIOXIDE LEVEL 28 MMOL/L (20-31); CHLORIDE LEVEL 104 MMOL/L (98-107); CREATININE FOR GFR 0.71 MG/DL (0.70-1.30); GLOMERULAR FILTRATION RATE > 60.0 (>49); GLUCOSE, FASTING 91 MG/DL (74-106); POTASSIUM SERUM 4.1 MMOL/L (3.5-5.1); SODIUM LEVEL 139 MMOL/L (136-145); TOTAL PROTEIN 6.4 G/DL (5.7-8.2)
[2022-06-10 19:33] LABS: THYROID STIMULATING HORMONE 1.308 uIU/ML (0.55-4.78)
[2022-06-10 20:10] LABS: RSV AMPLIFICATION NEGATIVE (NEGATIVE)
[2022-06-10 20:28] LABS: MAGNESIUM LEVEL 1.6 MG/DL (1.8-2.4)
[2022-06-10] MEDS ORDERED: MAG SULF 1GM/100ML (MAG RUN) 1 GM in IV 1 EA IV ONE (20:35)
[2022-06-10 21:01] VITALS: BP 100/56
[2022-06-10] MEDS ORDERED: BAYE325T13 PO (21:30)
[2022-06-10] MEDS ORDERED: METO50TA7 PO (21:30)
[2022-06-10] MEDS ORDERED: SLOWTAB2 PO (21:30)
== END 2022-06-10 21:52 | disposition home or self-care (01) ==
LOC: M ED 17:41
DX: I48.0 Paroxysmal atrial fibrillation (principal); E83.42 Hypomagnesemia; E78.5 Hyperlipidemia, unspecified; F79 Unspecified intellectual disabilities; F20.9 Schizophrenia, unspecified; J44.9 Chronic obstructive pulmonary disease, unspecified; Z87.891 Personal history of nicotine dependence; Z88.4 Allergy status to anesthetic agent; Z79.52 Long term (current) use of systemic steroids; Z79.82 Long term (current) use of aspirin; Z79.811 Long term (current) use of aromatase inhibitors; Z79.899 Other long term (current) drug therapy
CPT/HCPCS: 70450; 71045; 80048; 80076; 80164; 81000; 81015; 83605; 83735; 84443; 84484; 85025; 87631; 93005; 93041; 94760; 96374; 99284; J3475

== ENCOUNTER → 2022-06-24 | Outpatient (CLI) | payer MEDICARE, MEDICAID ==
[~2022-06-24] MED LIST changes: +BAYE325T13 PO; +METO50TA7 PO; +SLOWTAB2 PO
[2022-06-24 10:36] LABS: BLOOD UREA NITROGEN 16 MG/DL (9-23); CALCIUM LEVEL 8.9 MG/DL (8.3-10.6); CARBON DIOXIDE LEVEL 33 MMOL/L (20-31); CHLORIDE LEVEL 105 MMOL/L (98-107); CREATININE FOR GFR 0.85 MG/DL (0.70-1.30); GLOMERULAR FILTRATION RATE > 60.0 (>49); GLUCOSE, FASTING 79 MG/DL (74-106); MAGNESIUM LEVEL 1.6 MG/DL (1.8-2.4); POTASSIUM SERUM 4.7 MMOL/L (3.5-5.1); SODIUM LEVEL 141 MMOL/L (136-145)
== END ==
LOC: M WUC 08:31
PROVIDERS: ATTEND Family Medicine
DX: R79.0 Abnormal level of blood mineral (principal)

== ENCOUNTER → 2022-06-25 | Outpatient (REF) | payer MEDICARE, MEDICAID ==
[2022-06-25 17:58] LABS: APPEARANCE, URINE MANUAL CLEAR (CLEAR); COLOR, URINE MANUAL YELLOW (YELLOW)
[2022-06-25 17:59] LABS: BILIRUBIN, URINE MANUAL NEGATIVE (NEGATIVE); BLOOD URINE MANUAL TRACE (NEGATIVE); GLUCOSE, URINE (UA) MANUAL NEGATIVE (NEGATIVE); KETONE, URINE MANUAL NEGATIVE (NEGATIVE); LEUKOCYTE ESTERASE, URINE MAN NEGATIVE (NEGATIVE); NITRITE, URINE MANUAL NEGATIVE (NEGATIVE); PROTEIN, URINE MANUAL NEGATIVE (NEGATIVE); UROBILINOGEN, URINE MANUAL NORMAL (NORMAL)
[2022-06-25 18:36] LABS: BACTERIA, URINE NONE SEEN; SQUAMOUS EPITHELIAL CELL URINE NONE SEEN /hpf (SMALL AMT); WBC, URINE 0-1 /hpf (0-3)
== END ==
LOC: M SFHCPLAZ 16:08
PROVIDERS: ATTEND Family Medicine
DX: R32 Unspecified urinary incontinence (principal)

== ENCOUNTER → 2022-07-21 | Outpatient (CLI) | payer MEDICARE, MEDICAID ==
[2022-07-21 10:19] LABS: BLOOD UREA NITROGEN 19 MG/DL (9-23); CALCIUM LEVEL 8.9 MG/DL (8.3-10.6); CARBON DIOXIDE LEVEL 33 MMOL/L (20-31); CHLORIDE LEVEL 104 MMOL/L (98-107); CREATININE FOR GFR 0.82 MG/DL (0.70-1.30); GLOMERULAR FILTRATION RATE > 60.0 (>49); GLUCOSE, FASTING 79 MG/DL (74-106); MAGNESIUM LEVEL 1.8 MG/DL (1.8-2.4); POTASSIUM SERUM 4.5 MMOL/L (3.5-5.1); SODIUM LEVEL 142 MMOL/L (136-145)
== END ==
LOC: M WUC 08:05
PROVIDERS: ATTEND Family Medicine
DX: R79.0 Abnormal level of blood mineral (principal)

== ENCOUNTER → 2022-07-28 | Outpatient (CLI) | payer MEDICARE, MEDICAID ==
[2022-07-28 09:48] LABS: BASO % 0.5 % (0.0-1.0); EOS # 0.1 10^3/uL (0.0-0.5); EOS % 1.9 % (0.0-3.0); HEMATOCRIT 37.1 % (42.0-52.0); HEMOGLOBIN 11.9 g/dl (13.5-17.5); LYMPH # 1.9 10^3/uL (1.5-5.0); LYMPH % 30.2 % (24.0-44.0); MEAN CORPUSCULAR HGB CONC 32.1 g/dl (32.0-36.5); MEAN CORPUSCULAR VOLUME 99.7 fl (80.0-96.0); MONO # 0.9 10^3/uL (0.0-0.8); NEUTROPHILS # 3.4 10^3/uL (1.5-8.5); NEUTROPHILS % 52.9 % (36.0-66.0); PLATELET COUNT, AUTOMATED 157 10^3/uL (150-450); RED BLOOD COUNT 3.72 10^6/uL (4.30-6.10); WHITE BLOOD COUNT 6.4 10^3/uL (4.0-10.0)
[2022-07-28 10:51] LABS: ALBUMIN 3.2 G/DL (3.2-5.2); ALKALINE PHOSPHATASE 67 U/L (46-116); ALT/SGPT 17 U/L (7.0-40); AST/SGOT 29 U/L (<34); BILIRUBIN,TOTAL 0.6 MG/DL (0.3-1.2); BLOOD UREA NITROGEN 18 MG/DL (9-23); CALCIUM LEVEL 8.7 MG/DL (8.3-10.6); CARBON DIOXIDE LEVEL 31 MMOL/L (20-31); CHLORIDE LEVEL 105 MMOL/L (98-107); CHOLESTEROL LEVEL 111 MG/DL (<200); CREATININE FOR GFR 0.81 MG/DL (0.70-1.30); GLOMERULAR FILTRATION RATE > 60.0 (>49); GLUCOSE, FASTING 80 MG/DL (74-106); HDL CHOLESTEROL 46.1 MG/DL (>40); NON-HDL-C 64.9 MG/DL; POTASSIUM SERUM 4.4 MMOL/L (3.5-5.1); PROLACTIN 21.23 NG/ML (2.1-17.7); SODIUM LEVEL 140 MMOL/L (136-145)
[2022-07-28 11:00] LABS: HEMOGLOBIN A1c 5.2 % (4.0-6.0)
[2022-07-28 12:39] LABS: VALPROIC ACID (DEPAKOTE) 81.5 UG/ML (50.0-100.0)
[2022-07-28 12:40] LABS: LDL CHOLESTEROL 53.3 MG/DL (<100); TOTAL PROTEIN 5.9 G/DL (5.7-8.2); TRIGLYCERIDES LEVEL 58 MG/DL (<150)
== END ==
LOC: M WUC 08:25
PROVIDERS: ATTEND Physician Assistant
DX: Z79.899 Other long term (current) drug therapy (principal)

== ENCOUNTER 2022-08-21 07:58 | Day surgery (SDC) | payer MEDICARE, MEDICAID ==
[~2022-08-21] VITALS: Ht 162.6 cm; Wt 67.1 kg
[~2022-08-21 07:58] MED LIST changes: +MELA10CA6 PO
[2022-08-21] MEDS ORDERED: LR 1,000 ML IV SCH ×3 (08:30→11:15)
[2022-08-21] MEDS ORDERED: fentaNYL 100 MCG/2 ML INJECTION As Ordered ONE (09:51)
[2022-08-21] MEDS ORDERED: ACETAMINOPHEN 1000MG 100ML IV BAG As Ordered ONE (09:51)
[2022-08-21] MEDS ORDERED: MIDAZOLAM INJ 2MG/2ML VIAL As Ordered ONE (09:51)
[2022-08-21] MEDS ORDERED: LIDOCAINE 2% 100MG/5ML SDV (FOR ANES.) As Ordered ONE (09:53)
[2022-08-21] MEDS ORDERED: ROCURONIUM BROMIDE 50MG/5ML VIAL As Ordered ONE (09:53)
[2022-08-21] MEDS ORDERED: propofoL 200 MG/20 ML VIAL As Ordered ONE (09:53)
[2022-08-21] MEDS ORDERED: ONDANSETRON 4MG 2ML VIAL As Ordered ONE (09:53)
[2022-08-21] MEDS ORDERED: SUGAMMADEX SODIUM 500 MG/5 ML VIAL (BRIDION) As Ordered ONE (09:53)
[2022-08-21] MEDS ORDERED: KETOROLAC 60MG 2ML VIAL As Ordered ONE (09:53)
[2022-08-21] MEDS ORDERED: LIDOCAINE W/EPINEPHRINE 1% 20ML VIAL As Ordered ONE (09:59)
[2022-08-21] MEDS ORDERED: ONDANSETRON 4MG 2ML VIAL IV PRN (10:35)
[2022-08-21] MEDS ORDERED: fentaNYL 100 MCG/2 ML INJECTION IV PRN (10:35)
[2022-08-21] MEDS ORDERED: oxyCODONE 5MG TAB PO PRN (10:35)
[2022-08-21] MEDS ORDERED: MORPHINE 2 MG/ML 1ML VIAL IV PRN (10:35)
[2022-08-21 11:49] VITALS: BP 143/63
== END 2022-08-21 12:05 | disposition home or self-care (01) ==
LOC: M SDC 07:58
PROVIDERS: ATTEND Dentist Oral and Maxillofacial Surgery
DX: K02.9 Dental caries, unspecified (principal); I48.91 Unspecified atrial fibrillation; D64.9 Anemia, unspecified; K59.00 Constipation, unspecified; G40.909 Epilepsy, unspecified, not intractable, without status epilepticus; Z79.82 Long term (current) use of aspirin; Z79.899 Other long term (current) drug therapy; F20.0 Paranoid schizophrenia; J44.9 Chronic obstructive pulmonary disease, unspecified; F70 Mild intellectual disabilities; Z88.8 Allergy status to other drugs, medicaments and biological substances
CPT/HCPCS: 41899; 88300; J0131; J1100; J1885; J2405; J3010

== ENCOUNTER → 2022-10-29 | Outpatient (REF) | payer MEDICARE, MEDICAID ==
[~2022-10-29] MED LIST changes: +EMTR1TAB16 PO; -FLUT11IN INH; +FLUT12AE6 INH; +OLAN20TA14 PO; +RALT40TA PO; +RISP-10 PO; +TRAZ-257 PO
[2022-10-29 11:41] LABS: APPEARANCE, URINE HAZY (CLEAR); BACTERIA, URINE AUTO NEGATIVE (NEGATIVE); BILIRUBIN, URINE AUTO NEGATIVE (NEGATIVE); BLOOD, URINE BLOOD NEGATIVE (NEGATIVE); COLOR, URINE YELLOW (YELLOW); GLUCOSE, URINE (UA) AUTO NEGATIVE (NEGATIVE); KETONE, URINE AUTO TRACE mg/dL (NEGATIVE); LEUKOCYTE ESTERASE, URINE AUTO NEGATIVE (NEGATIVE); MUCUS, URINE SMALL (NEGATIVE); NITRITE, URINE AUTO NEGATIVE (NEGATIVE); PROTEIN, URINE AUTO 1+ mg/dL (NEGATIVE); RBC, URINE AUTO 1 /HPF (0-3); SPECIFIC GRAVITY URINE AUTO 1.023 (1.002-1.035); SQUAMOUS EPITHELIAL CELL UR AU 0 /HPF (0-6); WBC, URINE AUTO 4 /HPF (0-3)
== END ==
LOC: M SFHCLERA 09:54
PROVIDERS: ATTEND Family Medicine
DX: R41.82 Altered mental status, unspecified (principal)

== ENCOUNTER 2022-10-31 15:05 | Emergency (ER) | payer OTHER, MEDICARE, MEDICAID ==
[~2022-10-31] VITALS: Ht 160 cm; Wt 68.9 kg
[~2022-10-31 15:05] MED LIST changes: -EMTR1TAB16 PO; -OLAN20TA14 PO; -RALT40TA PO; +RALTEGRAVIR 400 MG TAB (ISENTRESS) PO SCH; -RISP-10 PO; -TRAZ-257 PO; +TRUVADA 200MG/300MG TABLET PO SCH
[2022-10-31] MEDS ORDERED: RISP-10 PO (15:40)
[2022-10-31] MEDS ORDERED: TRAZ-257 PO (15:40)
[2022-10-31] MEDS ORDERED: OLAN20TA14 PO (15:40)
[2022-10-31] MEDS ORDERED: DIVA500T94 PO (15:40)
[2022-10-31] MEDS ORDERED: EMTR1TAB16 PO ×2 (15:40→20:44)
[2022-10-31 16:33] LABS: BASO % 0.6 % (0.0-1.0); EOS # 0.1 10^3/uL (0.0-0.5); EOS % 1.4 % (0.0-3.0); HEMATOCRIT 39.4 % (42.0-52.0); HEMOGLOBIN 12.8 g/dl (13.5-17.5); LYMPH % 31.7 % (24.0-44.0); MEAN CORPUSCULAR HEMOGLOBIN 31.8 pg (27.0-33.0); MEAN CORPUSCULAR HGB CONC 32.5 g/dl (32.0-36.5); MONO # 0.7 10^3/uL (0.0-0.8); MONO % 10.6 % (2.0-8.0); NEUTROPHILS # 3.5 10^3/uL (1.5-8.5); NEUTROPHILS % 55.4 % (36.0-66.0); PLATELET COUNT, AUTOMATED 167 10^3/uL (150-450); RED BLOOD COUNT 4.02 10^6/uL (4.30-6.10); WHITE BLOOD COUNT 6.4 10^3/uL (4.0-10.0)
[2022-10-31 16:55] LABS: ALBUMIN 3.5 G/DL (3.2-5.2); ALKALINE PHOSPHATASE 76 U/L (46-116); ALT/SGPT 25 U/L (7.0-40); AST/SGOT 24 U/L (<34); BILIRUBIN,TOTAL 0.3 MG/DL (0.3-1.2); BLOOD UREA NITROGEN 21 MG/DL (9-23); CALCIUM LEVEL 8.8 MG/DL (8.3-10.6); CARBON DIOXIDE LEVEL 31 MMOL/L (20-31); CHLORIDE LEVEL 105 MMOL/L (98-107); CREATININE FOR GFR 1.03 MG/DL (0.70-1.30); GLOMERULAR FILTRATION RATE > 60.0 (>49); GLUCOSE, FASTING 87 MG/DL (74-106); POTASSIUM SERUM 4.3 MMOL/L (3.5-5.1); SODIUM LEVEL 142 MMOL/L (136-145); TOTAL PROTEIN 6.4 G/DL (5.7-8.2)
[2022-10-31 16:56] LABS: HEPATITIS B SURFACE ANTIBODY NEGATIVE (POSITIVE)
[2022-10-31 17:09] LABS: HEPATITIS B SURFACE ANTIGEN NEGATIVE (NEGATIVE)
[2022-10-31 17:22] LABS: HIV 1&2 SCREEN NEGATIVE (NEGATIVE)
[2022-10-31] MEDS ORDERED: AZITHROMYCIN SUSP 200MG/5ML 30ML BOTTLE PO ONE (18:35)
[2022-10-31] MEDS ORDERED: EXPOSURE KIT-ADULT 7 DAY SUPPLY PO ONE (18:35)
[2022-10-31] MEDS ORDERED: metroNIDAZOLE (FLAGYL) 500MG TABLET PO ONE (18:35)
[2022-10-31] MEDS ORDERED: LIDOCAINE 1% SDV 5ML VIAL DILUENT ONE (18:35)
[2022-10-31] MEDS ORDERED: cefTRIAXone 500MG VIAL IM ONE (18:35)
[2022-10-31] MEDS ORDERED: RALTEGRAVIR 400 MG TAB (ISENTRESS) PO ONE (18:45)
[2022-10-31] MEDS ORDERED: TRUVADA 200MG/300MG TABLET PO ONE (18:45)
[2022-10-31] MEDS ORDERED: AZITHROMYCIN 250MG TABLET PO ONE (18:45)
[2022-10-31] MEDS ORDERED: RALT40TA PO (20:44)
[2022-10-31 20:54] VITALS: BP 123/69; TEMP 98.7; O2SAT 97
== END 2022-10-31 20:59 | disposition home or self-care (01) ==
LOC: M ED 15:05
DX: T76.21XA Adult sexual abuse, suspected, initial encounter (principal); F20.9 Schizophrenia, unspecified; F79 Unspecified intellectual disabilities; J44.9 Chronic obstructive pulmonary disease, unspecified; Z79.02 Long term (current) use of antithrombotics/antiplatelets; Z79.899 Other long term (current) drug therapy
CPT/HCPCS: 80053; 85025; 86706; 86780; 86803; 87340; 87389; 96372; 99283; J0696

== ENCOUNTER → 2022-12-09 | Outpatient (CLI) | payer OTHER, MEDICARE, MEDICAID ==
[~2022-12-09] MED LIST changes: +EMTR1TAB16 PO; +OLAN20TA14 PO; +RALT40TA PO; -RALTEGRAVIR 400 MG TAB (ISENTRESS) PO SCH; +RISP-10 PO; +TRAZ-257 PO; -TRUVADA 200MG/300MG TABLET PO SCH
[2022-12-09 11:03] LABS: HIV SCREEN CENTAUR EXPOSED NEGATIVE (NEGATIVE)
[2022-12-09 13:58] LABS: GC DNA AMPLIFICATION NEGATIVE (NEGATIVE)
== END ==
LOC: M WUC 08:19
PROVIDERS: ATTEND Family Medicine
DX: T74.21XD Adult sexual abuse, confirmed, subsequent encounter (principal)

== ENCOUNTER → 2023-01-05 | Outpatient (REF) | payer OTHER, MEDICARE, MEDICAID ==
[2023-01-06 10:15] LABS: APPEARANCE, URINE CLEAR (CLEAR); BACTERIA, URINE AUTO NEGATIVE (NEGATIVE); BILIRUBIN, URINE AUTO NEGATIVE (NEGATIVE); BLOOD, URINE BLOOD NEGATIVE (NEGATIVE); COLOR, URINE YELLOW (YELLOW); GLUCOSE, URINE (UA) AUTO NEGATIVE (NEGATIVE); KETONE, URINE AUTO NEGATIVE (NEGATIVE); LEUKOCYTE ESTERASE, URINE AUTO NEGATIVE (NEGATIVE); MUCUS, URINE SMALL (NEGATIVE); NITRITE, URINE AUTO NEGATIVE (NEGATIVE); PROTEIN, URINE AUTO NEGATIVE (NEGATIVE); RBC, URINE AUTO 2 /HPF (0-3); SPECIFIC GRAVITY URINE AUTO 1.018 (1.002-1.035); SQUAMOUS EPITHELIAL CELL UR AU 0 /HPF (0-6); UROBILINOGEN, URINE AUTO 0.2 mg/dL (0.0-2.0); WBC, URINE AUTO 0 /HPF (0-3)
== END ==
LOC: M SFHCLERA 09:43
PROVIDERS: ATTEND Family Medicine
DX: R35.0 Frequency of micturition (principal); R32 Unspecified urinary incontinence

== ENCOUNTER 2023-03-24 09:23 | Inpatient (IN) | payer MEDICARE, MEDICAID ==
[~2023-03-24] VITALS: Ht 152.4 cm; Wt 79.5 kg
[2023-03-24] MEDS ORDERED: ASPI325T57 PO (09:43)
[2023-03-24] MEDS ORDERED: NS 1,000 ML IV ONE (10:20)
[2023-03-24 10:33] LABS: VENOUS BASE EXCESS -1.5 (-2.0-2.0); VENOUS HCO3 23.3 MMOL/L (23.0-27.0); VENOUS PARTIAL PRESSURE CO2 39.7 mmHg (38.0-50.0); VENOUS PARTIAL PRESSURE O2 65.3 mmHg (30.0-50.0); VENOUS PH 7.387 UNITS (7.330-7.430); VENOUS STANDARD HCO3 23.1 MMOL/L; VENOUS TOTAL CO2 24.5 MMOL/L (24.0-28.0)
[2023-03-24 10:46] LABS: BASO % 0.2 % (0.0-1.0); HEMATOCRIT 36.9 % (42.0-52.0); HEMOGLOBIN 12.2 g/dl (13.5-17.5); LYMPH # 1.3 10^3/uL (1.5-5.0); LYMPH % 6.4 % (24.0-44.0); MEAN CORPUSCULAR HEMOGLOBIN 32.1 pg (27.0-33.0); MEAN CORPUSCULAR HGB CONC 33.1 g/dl (32.0-36.5); MEAN CORPUSCULAR VOLUME 97.1 fl (80.0-96.0); MONO % 13.1 % (2.0-8.0); NEUTROPHILS % 79.5 % (36.0-66.0); PLATELET COUNT, AUTOMATED 132 10^3/uL (150-450); WHITE BLOOD COUNT 20.1 10^3/uL (4.0-10.0)
[2023-03-24 11:07] LABS: ALBUMIN 3.1 G/DL (3.2-5.2); ALKALINE PHOSPHATASE 59 U/L (46-116); ALT/SGPT 28 U/L (7.0-40); AST/SGOT 29 U/L (<34); BILIRUBIN,DIRECT 0.3 MG/DL (<0.4); BILIRUBIN,TOTAL 0.6 MG/DL (0.3-1.2); BLOOD UREA NITROGEN 22 MG/DL (9-23); CALCIUM LEVEL 9.1 MG/DL (8.3-10.6); CARBON DIOXIDE LEVEL 27 MMOL/L (20-31); CHLORIDE LEVEL 107 MMOL/L (98-107); CREATININE FOR GFR 0.88 MG/DL (0.70-1.30); GLOMERULAR FILTRATION RATE > 60.0 (>49); GLUCOSE, FASTING 78 MG/DL (74-106); MONO # 2.6 10^3/uL (0.0-0.8); OSMOLALITY SERUM 290 MOSM/KG (280-301); POTASSIUM SERUM 4.3 MMOL/L (3.5-5.1); SODIUM LEVEL 141 MMOL/L (136-145); TOTAL PROTEIN 6.1 G/DL (5.7-8.2)
[2023-03-24 11:09] LABS: THYROID STIMULATING HORMONE 1.162 uIU/ML (0.55-4.78)
[2023-03-24] MEDS ORDERED: NS 2,090 ML in IV 1 EA IV ONE (11:35)
[2023-03-24] MEDS ORDERED: cefTRIAXone SOD 2 GM in D5W MINI-BAG PLUS 50 ML IV ONE (11:35)
[2023-03-24] MEDS ORDERED: ISOVUE-370 76% 100ML VIAL As Ordered ONE (12:46)
[2023-03-24 12:47] LABS: VALPROIC ACID (DEPAKOTE) 92.5 UG/ML (50.0-100.0)
[2023-03-24] MEDS ORDERED: MED REC IN PROGRESS XX SCH (15:05)
[2023-03-24] MEDS ORDERED: SLOWTAB2 PO (15:22)
[2023-03-24] MEDS ORDERED: ACET-907 PO (15:24)
[2023-03-24] MEDS ORDERED: HOME MED LIST COMPLETE! XX SCH (15:35)
[2023-03-24 17:55] VITALS: BP 123/66; TEMP 98.8; O2SAT 97
[2023-03-24] MEDS ORDERED: ATORVASTATIN 10 MG TAB PO SCH (21:00)
[2023-03-24] MEDS ORDERED: traZODone 100 MG TAB PO SCH (21:00)
[2023-03-24] MEDS ORDERED: OLANZapine 10 MG TAB PO SCH (21:00)
[2023-03-24] MEDS ORDERED: risperiDONE 3 MG TAB PO SCH (21:00)
[2023-03-24] MEDS ORDERED: DIVALPROEX 500 MG TAB PO SCH (21:00)
[2023-03-24] MEDS: DOXYCYCLINE HYCLATE 100MG TABLET PO SCH (21:55)
[2023-03-24] MEDS: SENOKOT S TAB PO SCH (21:55)
[2023-03-24] MEDS: METAMUCIL (PSYLLIUM) PACKET PO SCH (21:59)
[2023-03-24 22:06] VITALS: BP 106/66; TEMP 99; O2SAT 94
[2023-03-25 05:10] VITALS: BP 109/63; TEMP 98.8; O2SAT 93
[2023-03-25 06:16] LABS: BASO % 0.3 % (0.0-1.0); EOS # 0.2 10^3/uL (0.0-0.5); EOS % 1.1 % (0.0-3.0); HEMATOCRIT 33.8 % (42.0-52.0); LYMPH # 2.5 10^3/uL (1.5-5.0); LYMPH % 17.6 % (24.0-44.0); MEAN CORPUSCULAR HEMOGLOBIN 32.1 pg (27.0-33.0); MEAN CORPUSCULAR HGB CONC 32.5 g/dl (32.0-36.5); MEAN CORPUSCULAR VOLUME 98.5 fl (80.0-96.0); MONO # 1.4 10^3/uL (0.0-0.8); MONO % 10.2 % (2.0-8.0); NEUTROPHILS # 9.9 10^3/uL (1.5-8.5); NEUTROPHILS % 70.4 % (36.0-66.0); PLATELET COUNT, AUTOMATED 126 10^3/uL (150-450); RED BLOOD COUNT 3.43 10^6/uL (4.30-6.10)
[2023-03-25 06:45] LABS: BLOOD UREA NITROGEN 18 MG/DL (9-23); CALCIUM LEVEL 8.2 MG/DL (8.3-10.6); CARBON DIOXIDE LEVEL 26 MMOL/L (20-31); CHLORIDE LEVEL 112 MMOL/L (98-107); CREATININE FOR GFR 0.74 MG/DL (0.70-1.30); GLOMERULAR FILTRATION RATE > 60.0 (>49); GLUCOSE, FASTING 91 MG/DL (74-106); POTASSIUM SERUM 4.1 MMOL/L (3.5-5.1); SODIUM LEVEL 145 MMOL/L (136-145)
[2023-03-25] MEDS ORDERED: ASPIRIN 325 MG TAB PO SCH (09:00)
[2023-03-25] MEDS ORDERED: risperiDONE 1 MG TAB PO SCH (09:00)
[2023-03-25] MEDS ORDERED: OLANZapine 10 MG TAB PO SCH (09:00)
[2023-03-25] MEDS: DOXYCYCLINE HYCLATE 100MG TABLET PO SCH (10:02)
[2023-03-25] MEDS: SENOKOT S TAB PO SCH (10:02)
[2023-03-25] MEDS: METAMUCIL (PSYLLIUM) PACKET PO SCH (10:02)
[2023-03-25] MEDS ORDERED: cefTRIAXone SOD 2 GM in D5W MINI-BAG PLUS 50 ML IV SCH (12:00)
[2023-03-25] MEDS ORDERED: DOXY100T PO (12:10)
[2023-03-25] MEDS ORDERED: CEFD300C42 PO (12:10)
[2023-03-25] MEDS ORDERED: PROBCAP14 PO (12:11)
== END 2023-03-25 13:25 | disposition home or self-care (01) | DRG 871 ==
LOC: M ED 09:23 → M ED INP 14:02 → ENRESERV 16:28 → M MSPAV 17:45
PROVIDERS: ADMIT Internal Medicine Nephrology; ATTEND Internal Medicine Nephrology
DX: A41.9 Sepsis, unspecified organism (principal); G93.41 Metabolic encephalopathy; J18.9 Pneumonia, unspecified organism; J69.0 Pneumonitis due to inhalation of food and vomit; J98.11 Atelectasis; F20.9 Schizophrenia, unspecified; G40.909 Epilepsy, unspecified, not intractable, without status epilepticus; I48.91 Unspecified atrial fibrillation; K76.0 Fatty (change of) liver, not elsewhere classified; D64.9 Anemia, unspecified; F70 Mild intellectual disabilities; E78.5 Hyperlipidemia, unspecified; F42.9 Obsessive-compulsive disorder, unspecified; F17.200 Nicotine dependence, unspecified, uncomplicated; K40.20 Bilateral inguinal hernia, without obstruction or gangrene, not specified as recurrent; K59.09 Other constipation; N40.0 Benign prostatic hyperplasia without lower urinary tract symptoms; E83.42 Hypomagnesemia; Z79.52 Long term (current) use of systemic steroids; Z79.899 Other long term (current) drug therapy; N62 Hypertrophy of breast; Z88.8 Allergy status to other drugs, medicaments and biological substances

== ENCOUNTER → 2023-04-30 | Outpatient (CLI) | payer MEDICARE, MEDICAID ==
[~2023-04-30] MED LIST changes: +ACET-907 PO; +ASPI325T57 PO; +CEFD1CAP9 PO; +DOXY100T PO; +PROBCAP14 PO
[2023-04-30 13:47] LABS: APPEARANCE, URINE CLEAR (CLEAR); BACTERIA, URINE AUTO NEGATIVE (NEGATIVE); BILIRUBIN, URINE AUTO NEGATIVE (NEGATIVE); BLOOD, URINE BLOOD NEGATIVE (NEGATIVE); COLOR, URINE YELLOW (YELLOW); GLUCOSE, URINE (UA) AUTO NEGATIVE (NEGATIVE); KETONE, URINE AUTO TRACE mg/dL (NEGATIVE); LEUKOCYTE ESTERASE, URINE AUTO NEGATIVE (NEGATIVE); MUCUS, URINE SMALL (NEGATIVE); NITRITE, URINE AUTO NEGATIVE (NEGATIVE); PROTEIN, URINE AUTO NEGATIVE (NEGATIVE); RBC, URINE AUTO 2 /HPF (0-3); SQUAMOUS EPITHELIAL CELL UR AU 0 /HPF (0-6); WBC, URINE AUTO 3 /HPF (0-3)
[2023-04-30 13:52] LABS: BASO % 0.4 % (0.0-1.0); EOS # 0.2 10^3/uL (0.0-0.5); EOS % 1.7 % (0.0-3.0); HEMOGLOBIN 12.3 g/dl (13.5-17.5); LYMPH # 2.3 10^3/uL (1.5-5.0); LYMPH % 23.3 % (24.0-44.0); MEAN CORPUSCULAR HEMOGLOBIN 32.1 pg (27.0-33.0); MEAN CORPUSCULAR HGB CONC 32.4 g/dl (32.0-36.5); MEAN CORPUSCULAR VOLUME 99.2 fl (80.0-96.0); MONO # 1.4 10^3/uL (0.0-0.8); MONO % 14.2 % (2.0-8.0); PLATELET COUNT, AUTOMATED 166 10^3/uL (150-450); RED BLOOD COUNT 3.83 10^6/uL (4.30-6.10)
[2023-04-30 14:14] LABS: ALBUMIN 3.1 G/DL (3.2-5.2); ALKALINE PHOSPHATASE 62 U/L (46-116); ALT/SGPT 25 U/L (7.0-40); AST/SGOT 21 U/L (<34); BILIRUBIN,TOTAL 0.6 MG/DL (0.3-1.2); BLOOD UREA NITROGEN 22 MG/DL (9-23); CALCIUM LEVEL 9.2 MG/DL (8.3-10.6); CARBON DIOXIDE LEVEL 33 MMOL/L (20-31); CHLORIDE LEVEL 104 MMOL/L (98-107); CHOLESTEROL LEVEL 119 MG/DL (<200); CHOLESTEROL RISK RATIO 2.55 (<5); CREATININE FOR GFR 0.85 MG/DL (0.70-1.30); GLOMERULAR FILTRATION RATE > 60.0 (>49); GLUCOSE, FASTING 87 MG/DL (74-106); HDL CHOLESTEROL 46.5 MG/DL (>40); LDL CHOLESTEROL 59.7 MG/DL (<100); NON-HDL-C 72.5 MG/DL; POTASSIUM SERUM 4.7 MMOL/L (3.5-5.1); SODIUM LEVEL 138 MMOL/L (136-145); TOTAL PROTEIN 6.1 G/DL (5.7-8.2); TRIGLYCERIDES LEVEL 64 MG/DL (<150)
[2023-04-30 14:17] LABS: HEPATITIS B SURFACE ANTIBODY NEGATIVE (POSITIVE)
[2023-04-30 14:19] LABS: CHLAMYDIA DNA AMPLIFICATION NEGATIVE (NEGATIVE); GC DNA AMPLIFICATION NEGATIVE (NEGATIVE)
[2023-04-30 14:42] LABS: HIV 1&2 SCREEN NEGATIVE (NEGATIVE)
== END ==
LOC: M WUC 08:48
PROVIDERS: ATTEND Family Medicine
DX: Z00.00 Encounter for general adult medical examination without abnormal findings (principal); D69.6 Thrombocytopenia, unspecified; T74.21XD Adult sexual abuse, confirmed, subsequent encounter; E78.5 Hyperlipidemia, unspecified; Z11.59 Encounter for screening for other viral diseases; Z20.2 Contact with and (suspected) exposure to infections with a predominantly sexual mode of transmission; Z11.3 Encounter for screening for infections with a predominantly sexual mode of transmission

== ENCOUNTER → 2023-05-06 | Outpatient (CLI) | payer MEDICARE, MEDICAID ==
[~2023-05-06] MED LIST changes: +MOXI400T11 PO
== END ==
LOC: M PLAIMG 14:13
PROVIDERS: ATTEND Family Medicine
DX: R91.8 Other nonspecific abnormal finding of lung field (principal); R91.1 Solitary pulmonary nodule

== ENCOUNTER 2023-05-08 09:42 | Emergency (ER) | payer MEDICARE, MEDICAID ==
[~2023-05-08] VITALS: Ht 170.2 cm; Wt 65.9 kg
[~2023-05-08 09:42] MED LIST changes: -MOXI400T11 PO
[2023-05-08] MEDS ORDERED: NS 1,000 ML IV ONE (10:05)
[2023-05-08 10:48] LABS: ABG BASE EXCESS 3.5 (-2.0-2.0); ABG HCO3 26.5 MMOL/L (22.0-26.0); ABG O2 SATURATION 98.5 % (95.0-99.0); ABG PARTIAL PRESSURE CO2 34.8 mmHg (35.0-45.0); ABG PARTIAL PRESSURE O2 110.5 mmHg (75.0-100.0); ABG STANDARD HCO3 27.6 MMOL/L. (22.0-26.0); ABG TOTAL CO2 27.5 MMOL/L (23.0-31.0); ABG pH (ARTERIAL) 7.499 UNITS (7.350-7.450)
[2023-05-08 11:02] LABS: BASO % 0.3 % (0.0-1.0); EOS % 0.1 % (0.0-3.0); HEMATOCRIT 37.6 % (42.0-52.0); HEMOGLOBIN 12.3 g/dl (13.5-17.5); LYMPH # 0.6 10^3/uL (1.5-5.0); LYMPH % 7.5 % (24.0-44.0); MEAN CORPUSCULAR HEMOGLOBIN 31.8 pg (27.0-33.0); MEAN CORPUSCULAR HGB CONC 32.7 g/dl (32.0-36.5); MEAN CORPUSCULAR VOLUME 97.2 fl (80.0-96.0); MONO # 0.8 10^3/uL (0.0-0.8); MONO % 10.3 % (2.0-8.0); NEUTROPHILS # 6.3 10^3/uL (1.5-8.5); NEUTROPHILS % 80.9 % (36.0-66.0); PLATELET COUNT, AUTOMATED 147 10^3/uL (150-450); RED BLOOD COUNT 3.87 10^6/uL (4.30-6.10); WHITE BLOOD COUNT 7.7 10^3/uL (4.0-10.0)
[2023-05-08 11:26] LABS: ALBUMIN 2.7 G/DL (3.2-5.2); ALKALINE PHOSPHATASE 56 U/L (46-116); ALT/SGPT 20 U/L (7.0-40); AST/SGOT 23 U/L (<34); BILIRUBIN,DIRECT 0.2 MG/DL (<0.4); BILIRUBIN,TOTAL 0.6 MG/DL (0.3-1.2); BLOOD UREA NITROGEN 26 MG/DL (9-23); CALCIUM LEVEL 7.9 MG/DL (8.3-10.6); CARBON DIOXIDE LEVEL 28 MMOL/L (20-31); CHLORIDE LEVEL 106 MMOL/L (98-107); CREATININE FOR GFR 0.94 MG/DL (0.70-1.30); GLOMERULAR FILTRATION RATE > 60.0 (>49); GLUCOSE, FASTING 100 MG/DL (74-106); MAGNESIUM LEVEL 1.6 MG/DL (1.8-2.4); POTASSIUM SERUM 3.9 MMOL/L (3.5-5.1); SODIUM LEVEL 139 MMOL/L (136-145); TOTAL PROTEIN 5.4 G/DL (5.7-8.2)
[2023-05-08 11:28] LABS: THYROID STIMULATING HORMONE 0.896 uIU/ML (0.55-4.78); THYROXINE (T4) 4.9 UG/DL (4.5-10.9)
[2023-05-08] MEDS ORDERED: MAG SULF 1GM/100ML (MAG RUN) 1 GM in IV 1 EA IV ONE (11:50)
[2023-05-08] MEDS ORDERED: ISOVUE-370 76% 100ML VIAL As Ordered ONE (11:55)
[2023-05-08] MEDS ORDERED: IPRATROPIUM 0.5MG/ALBUTEROL 2.5MG INH SOL UD 3ML (DUONEB) NEB ONE (12:00)
[2023-05-08] MEDS ORDERED: MOXI400T11 PO (14:14)
[2023-05-08] MEDS ORDERED: MOXIFLOXACIN 400 MG TAB PO ONE (14:35)
[2023-05-08 14:45] VITALS: BP 104/62; O2SAT 95
[2023-05-08 14:58] VITALS: TEMP 101.9
== END 2023-05-08 15:02 | disposition home or self-care (01) ==
LOC: M ED 09:42 → EDBD 09:42 → M ED 15:02
DX: J20.9 Acute bronchitis, unspecified (principal); J44.9 Chronic obstructive pulmonary disease, unspecified; F20.9 Schizophrenia, unspecified; Z88.4 Allergy status to anesthetic agent; Z79.2 Long term (current) use of antibiotics; Z79.02 Long term (current) use of antithrombotics/antiplatelets; Z79.82 Long term (current) use of aspirin; Z79.899 Other long term (current) drug therapy
CPT/HCPCS: 36600; 71045; 71275; 80048; 80076; 82803; 83605; 83735; 84145; 84436; 84443; 85025; 87486; 87581; 87633; 87798; 93005; 93041; 94640; 94760; 96361; 96365; 99285; J3475; Q9967

== ENCOUNTER → 2023-08-19 | Outpatient (CLI) | payer MEDICARE, MEDICAID ==
[~2023-08-19] MED LIST changes: +MOXI400T11 PO; -RISP-10 PO; +RISP3TAB77 PO
[2023-08-19 08:43] LABS: BASO % 0.5 % (0.0-1.0); EOS # 0.1 10^3/uL (0.0-0.5); EOS % 1.7 % (0.0-3.0); HEMATOCRIT 39.7 % (42.0-52.0); HEMOGLOBIN 13.1 g/dl (13.5-17.5); LYMPH # 2.1 10^3/uL (1.5-5.0); LYMPH % 33.2 % (24.0-44.0); MEAN CORPUSCULAR VOLUME 96.8 fl (80.0-96.0); MONO # 0.9 10^3/uL (0.0-0.8); MONO % 13.6 % (2.0-8.0); NEUTROPHILS # 3.2 10^3/uL (1.5-8.5); NEUTROPHILS % 50.2 % (36.0-66.0); PLATELET COUNT, AUTOMATED 150 10^3/uL (150-450); WHITE BLOOD COUNT 6.4 10^3/uL (4.0-10.0)
[2023-08-19 09:15] LABS: PSA SCREENING 0.79 NG/ML (< 4.00); VALPROIC ACID (DEPAKOTE) 86.3 UG/ML (50.0-100.0)
[2023-08-19 09:16] LABS: ALBUMIN 3.3 G/DL (3.2-5.2); ALKALINE PHOSPHATASE 57 U/L (46-116); ALT/SGPT 25 U/L (7.0-40); AST/SGOT 24 U/L (<34); BILIRUBIN,TOTAL 0.5 MG/DL (0.3-1.2); BLOOD UREA NITROGEN 19 MG/DL (9-23); CALCIUM LEVEL 8.9 MG/DL (8.3-10.6); CARBON DIOXIDE LEVEL 31 MMOL/L (20-31); CHLORIDE LEVEL 107 MMOL/L (98-107); CREATININE FOR GFR 0.87 MG/DL (0.70-1.30); GLOMERULAR FILTRATION RATE > 60.0 (>42); GLUCOSE, FASTING 83 MG/DL (74-106); MAGNESIUM LEVEL 1.7 MG/DL (1.8-2.4); POTASSIUM SERUM 4.4 MMOL/L (3.5-5.1); SODIUM LEVEL 142 MMOL/L (136-145); TOTAL PROTEIN 6.2 G/DL (5.7-8.2)
== END ==
LOC: M LAB 07:39
PROVIDERS: ATTEND Family Medicine
DX: G40.909 Epilepsy, unspecified, not intractable, without status epilepticus (principal); E83.42 Hypomagnesemia; D64.9 Anemia, unspecified; R35.1 Nocturia; Z12.5 Encounter for screening for malignant neoplasm of prostate
CPT/HCPCS: 36415; 80053; 80164; 83735; 85025; G0103

== ENCOUNTER → 2023-10-01 | Outpatient (CLI) | payer MEDICARE, MEDICAID ==
[~2023-10-01] MED LIST changes: +DOXY-440 PO; -DOXY-444 PO
[2023-10-01 14:05] LABS: BASO % 0.7 % (0.0-1.0); EOS # 0.1 10^3/uL (0.0-0.5); EOS % 1.7 % (0.0-3.0); HEMATOCRIT 38.4 % (42.0-52.0); HEMOGLOBIN 12.5 g/dl (13.5-17.5); LYMPH # 2.5 10^3/uL (1.5-5.0); LYMPH % 40.7 % (24.0-44.0); MEAN CORPUSCULAR HEMOGLOBIN 32.1 pg (27.0-33.0); MEAN CORPUSCULAR HGB CONC 32.6 g/dl (32.0-36.5); MEAN CORPUSCULAR VOLUME 98.5 fl (80.0-96.0); MONO # 0.8 10^3/uL (0.0-0.8); MONO % 12.8 % (2.0-8.0); NEUTROPHILS # 2.6 10^3/uL (1.5-8.5); NEUTROPHILS % 43.6 % (36.0-66.0); PLATELET COUNT, AUTOMATED 143 10^3/uL (150-450)
[2023-10-01 14:08] LABS: ALBUMIN 3.4 G/DL (3.2-5.2); ALKALINE PHOSPHATASE 62 U/L (46-116); ALT/SGPT 29 U/L (7.0-40); AST/SGOT 27 U/L (<34); BILIRUBIN,TOTAL 0.6 MG/DL (0.3-1.2); BLOOD UREA NITROGEN 24 MG/DL (9-23); CALCIUM LEVEL 8.9 MG/DL (8.3-10.6); CARBON DIOXIDE LEVEL 31 MMOL/L (20-31); CHLORIDE LEVEL 106 MMOL/L (98-107); CHOLESTEROL LEVEL 119 MG/DL (<200); CHOLESTEROL RISK RATIO 2.57 (<5); CREATININE FOR GFR 0.85 MG/DL (0.70-1.30); GLOMERULAR FILTRATION RATE > 60.0 (>42); GLUCOSE, FASTING 84 MG/DL (74-106); HDL CHOLESTEROL 46.3 MG/DL (>40); LDL CHOLESTEROL 60.5 MG/DL (<100); NON-HDL-C 72.7 MG/DL; POTASSIUM SERUM 4.1 MMOL/L (3.5-5.1); SODIUM LEVEL 141 MMOL/L (136-145); TOTAL PROTEIN 6.3 G/DL (5.7-8.2); TRIGLYCERIDES LEVEL 61 MG/DL (<150)
[2023-10-01 14:11] LABS: PROLACTIN 21.27 NG/ML (2.1-17.7)
[2023-10-01 14:26] LABS: HEMOGLOBIN A1c 5.3 % (4.0-6.0)
== END ==
LOC: M WUC 09:22
PROVIDERS: ATTEND Physician Assistant
DX: Z79.899 Other long term (current) drug therapy (principal)

== ENCOUNTER 2023-10-26 09:22 | Day surgery (SDC) | payer MEDICARE, MEDICAID ==
[~2023-10-26] VITALS: Ht 170.2 cm; Wt 68.9 kg
[~2023-10-26 09:22] MED LIST changes: +FLUO-365 PO; +LevoFLOXacin 750 MG TABLET PO SCH
[2023-10-26] MEDS: NS 1,000 ML IV ONE (09:50)
[2023-10-26] MEDS ORDERED: propofoL 500 MG/50 ML VIAL As Ordered ONE (10:25)
[2023-10-26 11:27] LABS: BASO % 0.2 % (0.0-1.0); EOS % 0.3 % (0.0-3.0); HEMATOCRIT 34.7 % (42.0-52.0); HEMOGLOBIN 11.5 g/dl (13.5-17.5); LYMPH # 2.2 10^3/uL (1.5-5.0); MEAN CORPUSCULAR HEMOGLOBIN 32.3 pg (27.0-33.0); MEAN CORPUSCULAR HGB CONC 33.1 g/dl (32.0-36.5); MEAN CORPUSCULAR VOLUME 97.5 fl (80.0-96.0); MONO # 1.4 10^3/uL (0.0-0.8); MONO % 10.3 % (2.0-8.0); NEUTROPHILS # 10.1 10^3/uL (1.5-8.5); NEUTROPHILS % 72.8 % (36.0-66.0); PLATELET COUNT, AUTOMATED 111 10^3/uL (150-450); RED BLOOD COUNT 3.56 10^6/uL (4.30-6.10); WHITE BLOOD COUNT 13.9 10^3/uL (4.0-10.0)
[2023-10-26 11:35] LABS: ERYTHROCYTE SEDIMENTATION RATE 3 mm/hr (0-20)
[2023-10-26 11:49] LABS: CK-MB VALUE MASS 12.1 NG/ML (<3.6)
[2023-10-26 11:52] LABS: ALBUMIN 2.9 G/DL (3.2-5.2); ALKALINE PHOSPHATASE 54 U/L (46-116); ALT/SGPT 30 U/L (7.0-40); AST/SGOT 48 U/L (<34); BILIRUBIN,TOTAL 0.8 MG/DL (0.3-1.2); BLOOD UREA NITROGEN 18 MG/DL (9-23); CALCIUM LEVEL 8.2 MG/DL (8.3-10.6); CARBON DIOXIDE LEVEL 27 MMOL/L (20-31); CHLORIDE LEVEL 105 MMOL/L (98-107); CPK CREATINE PHOSPHOKINASE 821 U/L (46-171); CREATININE FOR GFR 0.92 MG/DL (0.70-1.30); GLOMERULAR FILTRATION RATE > 60.0 (>42); GLUCOSE, FASTING 92 MG/DL (74-106); MB/CK RELATIVE INDEX 1.47 (< OR =4); POTASSIUM SERUM 4.2 MMOL/L (3.5-5.1); SODIUM LEVEL 137 MMOL/L (136-145); TOTAL PROTEIN 5.5 G/DL (5.7-8.2)
[2023-10-26 11:57] LABS: PROCALCITONIN 0.78 ng/ml
[2023-10-26] MEDS ORDERED: ISOVUE-370 76% 100ML VIAL As Ordered ONE (12:49)
[2023-10-26 13:18] VITALS: BP 113/70; TEMP 98.1; O2SAT 97
[2023-10-26] MEDS ORDERED: CEFD300CAP PO (13:35)
[2023-10-26 13:45] VITALS: BP 112/70; TEMP 97.9; O2SAT 95
[2023-10-26 14:15] VITALS: BP 111/70; TEMP 98.1; O2SAT 95
[2023-10-30 17:12] LABS: URINE STREP PNEUMONIAE ANTIGEN NOT DETECTED (NOT DETECT)
== END 2023-10-26 15:10 | disposition home or self-care (01) ==
LOC: M OPP 09:22 → M MSPAV 13:15 → UNDOADMOB 13:15 → M OPP 15:10 → UNDODISOB 15:10
PROVIDERS: ATTEND Internal Medicine Gastroenterology
DX: J95.89 Other postprocedural complications and disorders of respiratory system, not elsewhere classified (principal); J18.9 Pneumonia, unspecified organism; R94.30 Abnormal result of cardiovascular function study, unspecified; R94.5 Abnormal results of liver function studies; K55.20 Angiodysplasia of colon without hemorrhage; Z86.010 Personal history of colon polyps; D12.5 Benign neoplasm of sigmoid colon; D12.2 Benign neoplasm of ascending colon; Q43.8 Other specified congenital malformations of intestine; F20.9 Schizophrenia, unspecified; I48.0 Paroxysmal atrial fibrillation; J44.9 Chronic obstructive pulmonary disease, unspecified; E78.5 Hyperlipidemia, unspecified; F24 Shared psychotic disorder; Z87.891 Personal history of nicotine dependence; F70 Mild intellectual disabilities; G40.909 Epilepsy, unspecified, not intractable, without status epilepticus; E83.42 Hypomagnesemia; Z79.899 Other long term (current) drug therapy; Z88.8 Allergy status to other drugs, medicaments and biological substances; Z79.82 Long term (current) use of aspirin; Z79.2 Long term (current) use of antibiotics
CPT/HCPCS: 36415; 45385; 71045; 71275; 80053; 82550; 82553; 83880; 84145; 84484; 85025; 85652; 86140; 87040; 87449; 87641; 87899; 88305; 93005; Q9967

== ENCOUNTER 2023-11-20 21:03 | Emergency (ER) | payer MEDICARE, MEDICAID ==
[~2023-11-20] VITALS: Ht 175.3 cm; Wt 63.6 kg
[~2023-11-20 21:03] MED LIST changes: +CEFD300CAP PO; -LevoFLOXacin 750 MG TABLET PO SCH; -OLAN20TA14 PO; +OLAN20TA53 PO
[2023-11-20 21:33] LABS: BASO % 0.2 % (0.0-1.0); EOS % 0.4 % (0.0-3.0); HEMATOCRIT 33.6 % (42.0-52.0); HEMOGLOBIN 10.9 g/dl (13.5-17.5); LYMPH # 1.9 10^3/uL (1.5-5.0); LYMPH % 22.7 % (24.0-44.0); MEAN CORPUSCULAR HGB CONC 32.4 g/dl (32.0-36.5); MEAN CORPUSCULAR VOLUME 101.8 fl (80.0-96.0); MONO % 11.9 % (2.0-8.0); NEUTROPHILS # 5.3 10^3/uL (1.5-8.5); NEUTROPHILS % 64.3 % (36.0-66.0); PLATELET COUNT, AUTOMATED 138 10^3/uL (150-450); WHITE BLOOD COUNT 8.3 10^3/uL (4.0-10.0)
[2023-11-20 21:56] LABS: CK-MB VALUE MASS 11.7 NG/ML (<3.6)
[2023-11-20 21:57] LABS: ALKALINE PHOSPHATASE 67 U/L (46-116); ALT/SGPT 22 U/L (7.0-40); AST/SGOT 29 U/L (<34); BILIRUBIN,DIRECT 0.2 MG/DL (<0.4); BILIRUBIN,TOTAL 0.5 MG/DL (0.3-1.2); BLOOD UREA NITROGEN 28 MG/DL (9-23); CALCIUM LEVEL 8.7 MG/DL (8.3-10.6); CARBON DIOXIDE LEVEL 29 MMOL/L (20-31); CHLORIDE LEVEL 109 MMOL/L (98-107); CPK CREATINE PHOSPHOKINASE 363 U/L (46-171); CREATININE FOR GFR 1.17 MG/DL (0.70-1.30); GLOMERULAR FILTRATION RATE > 60.0 (>42); GLUCOSE, FASTING 192 MG/DL (74-106); MB/CK RELATIVE INDEX 3.22 (< OR =4); POTASSIUM SERUM 4.2 MMOL/L (3.5-5.1); SODIUM LEVEL 142 MMOL/L (136-145); TOTAL PROTEIN 5.5 G/DL (5.7-8.2)
[2023-11-20 21:59] LABS: THYROID STIMULATING HORMONE 3.056 uIU/ML (0.55-4.78)
[2023-11-20 22:26] LABS: VALPROIC ACID (DEPAKOTE) 60.4 UG/ML (50.0-100.0)
[2023-11-20 23:19] LABS: CK-MB VALUE MASS 10.9 NG/ML (<3.6)
[2023-11-20 23:26] LABS: MB/CK RELATIVE INDEX 3.31 (< OR =4)
[2023-11-21] MEDS ORDERED: ISOVUE-370 76% 100ML VIAL As Ordered ONE (00:17)
[2023-11-21 00:28] VITALS: O2SAT 96
[2023-11-21] MEDS: ACETAMINOPHEN *IV* 1,000 MG in IV 1 EA IV ONE (00:58)
[2023-11-21] MEDS: NS 500 ML IV ONE (04:28)
[2023-11-21 05:30] VITALS: BP 111/60; TEMP 99.4; O2SAT 95
[2023-11-22] MEDS ORDERED: TRIPOIN9 TOP (16:03)
[2023-11-22] MEDS ORDERED: ZINC20OI21 TOP (16:03)
[2023-11-22] MEDS ORDERED: RISP-106 PO (16:06)
[2023-11-22] MEDS ORDERED: PROB250C PO (16:06)
== END 2023-11-21 05:41 | disposition home or self-care (01) ==
LOC: M ED 21:03
DX: R50.9 Fever, unspecified (principal); B34.8 Other viral infections of unspecified site; E86.0 Dehydration; F79 Unspecified intellectual disabilities; E78.5 Hyperlipidemia, unspecified; J44.9 Chronic obstructive pulmonary disease, unspecified; Z86.79 Personal history of other diseases of the circulatory system; Z88.8 Allergy status to other drugs, medicaments and biological substances; Z79.1 Long term (current) use of non-steroidal anti-inflammatories (NSAID); Z79.899 Other long term (current) drug therapy
CPT/HCPCS: 36415; 71045; 71275; 80048; 80076; 80164; 81001; 82550; 82553; 83605; 83880; 84443; 84484; 85025; 87040; 87486; 87581; 87633; 87798; 93005; 96361; 96365; 99285; J0131; Q9967

== ENCOUNTER 2023-11-22 15:27 | Emergency (ER) | payer MEDICARE, MEDICAID ==
[~2023-11-22] VITALS: Ht 165.1 cm; Wt 70.0 kg
[2023-11-22 15:28] VITALS: BP 110/55; TEMP 98.1; O2SAT 97
[2023-11-22] MEDS ORDERED: ZINC20OI21 TOP (16:03)
[2023-11-22] MEDS ORDERED: TRIPOIN9 TOP (16:03)
[2023-11-22] MEDS ORDERED: PROB250C PO (16:06)
[2023-11-22] MEDS ORDERED: RISP-106 PO (16:06)
[2023-11-22 17:34] LABS: BASO % 0.3 % (0.0-1.0); EOS # 0.1 10^3/uL (0.0-0.5); EOS % 0.5 % (0.0-3.0); HEMATOCRIT 31.3 % (42.0-52.0); HEMOGLOBIN 10.3 g/dl (13.5-17.5); LYMPH # 1.9 10^3/uL (1.5-5.0); LYMPH % 15.6 % (24.0-44.0); MEAN CORPUSCULAR HGB CONC 32.9 g/dl (32.0-36.5); MEAN CORPUSCULAR VOLUME 100.3 fl (80.0-96.0); MONO # 1.5 10^3/uL (0.0-0.8); MONO % 12.5 % (2.0-8.0); NEUTROPHILS # 8.4 10^3/uL (1.5-8.5); NEUTROPHILS % 70.3 % (36.0-66.0); PLATELET COUNT, AUTOMATED 121 10^3/uL (150-450); RED BLOOD COUNT 3.12 10^6/uL (4.30-6.10)
[2023-11-22 17:59] LABS: CPK CREATINE PHOSPHOKINASE 133 U/L (46-171)
[2023-11-22 18:00] LABS: ALBUMIN 2.6 G/DL (3.2-5.2); ALKALINE PHOSPHATASE 57 U/L (46-116); ALT/SGPT 20 U/L (7.0-40); AST/SGOT 26 U/L (<34); BILIRUBIN,DIRECT 0.2 MG/DL (<0.4); BILIRUBIN,TOTAL 0.5 MG/DL (0.3-1.2); BLOOD UREA NITROGEN 26 MG/DL (9-23); CALCIUM LEVEL 8.4 MG/DL (8.3-10.6); CARBON DIOXIDE LEVEL 25 MMOL/L (20-31); CHLORIDE LEVEL 109 MMOL/L (98-107); CK-MB VALUE MASS 2.8 NG/ML (<3.6); CREATININE FOR GFR 1.06 MG/DL (0.70-1.30); FREE T4 1.04 NG/DL (0.89-1.76); GLOMERULAR FILTRATION RATE > 60.0 (>42); GLUCOSE, FASTING 99 MG/DL (74-106); POTASSIUM SERUM 4.1 MMOL/L (3.5-5.1); SODIUM LEVEL 138 MMOL/L (136-145); TOTAL PROTEIN 5.3 G/DL (5.7-8.2)
[2023-11-22 18:04] LABS: INR 1.23; PARTIAL THROMBOPLASTIN TIME 37.1 SECONDS (24.8-34.2); PROTHROMBIN TIME 15.2 SECONDS (12.5-14.5)
[2023-11-22 18:51] LABS: CK-MB VALUE MASS 2.4 NG/ML (<3.6)
[2023-11-22 18:53] LABS: MB/CK RELATIVE INDEX 1.93 (< OR =4)
[2023-11-22] MEDS: MAGNESIUM OXIDE 400MG TAB (MAG-OX) PO ONE (20:16)
== END 2023-11-22 20:17 | disposition home or self-care (01) ==
LOC: M ED 15:27
DX: I48.91 Unspecified atrial fibrillation (principal); I27.20 Pulmonary hypertension, unspecified; E78.5 Hyperlipidemia, unspecified; F20.9 Schizophrenia, unspecified; F79 Unspecified intellectual disabilities; J44.9 Chronic obstructive pulmonary disease, unspecified; Z88.4 Allergy status to anesthetic agent; Z79.899 Other long term (current) drug therapy; Z79.1 Long term (current) use of non-steroidal anti-inflammatories (NSAID)
CPT/HCPCS: 36415; 71045; 80048; 80076; 82550; 82553; 83735; 84439; 84443; 84484; 85025; 85610; 85730; 93005; 93041; 94760; 99284; G0463

== ENCOUNTER → 2023-12-07 | Outpatient (CLI) | payer MEDICARE, MEDICAID ==
[~2023-12-07] MED LIST changes: +PROB250C PO; +RISP-106 PO; +TRIPOIN9 TOP; +ZINC20OI21 TOP
[2023-12-07 12:11] LABS: BILIRUBIN,DIRECT 0.2 MG/DL (<0.4); BILIRUBIN,TOTAL 0.4 MG/DL (0.3-1.2); TOTAL PROTEIN 5.9 G/DL (5.7-8.2)
[2023-12-07 12:20] LABS: HEMATOCRIT 37.4 % (42.0-52.0); HEMOGLOBIN 11.9 g/dl (13.5-17.5); MEAN CORPUSCULAR HEMOGLOBIN 32.3 pg (27.0-33.0); MEAN CORPUSCULAR HGB CONC 31.8 g/dl (32.0-36.5); MEAN CORPUSCULAR VOLUME 101.6 fl (80.0-96.0); PLATELET COUNT, AUTOMATED 258 10^3/uL (150-450); RED BLOOD COUNT 3.68 10^6/uL (4.30-6.10); WHITE BLOOD COUNT 7.7 10^3/uL (4.0-10.0)
== END ==
LOC: M WUC 08:17
PROVIDERS: ATTEND Physician Assistant Medical
DX: R74.01 Elevation of levels of liver transaminase levels (principal); Z79.899 Other long term (current) drug therapy

== ENCOUNTER → 2023-12-07 | Outpatient (CLI) | payer MEDICARE, MEDICAID | LOC: M WUC 08:19 | PROVIDERS: ATTEND Physician Assistant | DX: E83.42 Hypomagnesemia (principal) ==

== ENCOUNTER → 2023-12-16 | Outpatient (CLI) | payer MEDICARE, MEDICAID | LOC: M EKG 09:52 | PROVIDERS: ATTEND Physician Assistant | DX: I48.0 Paroxysmal atrial fibrillation (principal) ==

== ENCOUNTER → 2024-01-10 | Outpatient (CLI) | payer MEDICARE, MEDICAID | LOC: M EKG 08:43 | PROVIDERS: ATTEND Physician Assistant | DX: I48.0 Paroxysmal atrial fibrillation (principal) ==

== ENCOUNTER 2024-01-29 02:22 | Emergency (ER) | payer MEDICARE, MEDICAID ==
[~2024-01-29] VITALS: Ht 167.6 cm; Wt 68.1 kg
[2024-01-29 05:45] LABS: BASO % 0.3 % (0.0-1.0); EOS # 0.2 10^3/uL (0.0-0.5); EOS % 2.2 % (0.0-3.0); HEMOGLOBIN 11.7 g/dl (13.5-17.5); LYMPH # 2.4 10^3/uL (1.5-5.0); LYMPH % 33.5 % (24.0-44.0); MEAN CORPUSCULAR HEMOGLOBIN 32.4 pg (27.0-33.0); MEAN CORPUSCULAR HGB CONC 32.5 g/dl (32.0-36.5); MEAN CORPUSCULAR VOLUME 99.7 fl (80.0-96.0); MONO # 1.2 10^3/uL (0.0-0.8); MONO % 16.5 % (2.0-8.0); NEUTROPHILS # 3.4 10^3/uL (1.5-8.5); NEUTROPHILS % 46.8 % (36.0-66.0); PLATELET COUNT, AUTOMATED 161 10^3/uL (150-450); RED BLOOD COUNT 3.61 10^6/uL (4.30-6.10); WHITE BLOOD COUNT 7.2 10^3/uL (4.0-10.0)
[2024-01-29 05:58] LABS: CK-MB VALUE MASS 1.3 NG/ML (<3.6)
[2024-01-29 05:59] LABS: BLOOD UREA NITROGEN 18 MG/DL (9-23); CALCIUM LEVEL 9.2 MG/DL (8.3-10.6); CARBON DIOXIDE LEVEL 29 MMOL/L (20-31); CHLORIDE LEVEL 106 MMOL/L (98-107); GLOMERULAR FILTRATION RATE > 60.0 (>42); GLUCOSE, FASTING 71 MG/DL (74-106); MAGNESIUM LEVEL 1.9 MG/DL (1.8-2.4); POTASSIUM SERUM 4.6 MMOL/L (3.5-5.1); SODIUM LEVEL 139 MMOL/L (136-145)
[2024-01-29 06:06] LABS: CPK CREATINE PHOSPHOKINASE 56 U/L (46-171); MB/CK RELATIVE INDEX 2.32 (< OR =4)
[2024-01-29 08:09] VITALS: BP 118/57; TEMP 98; O2SAT 98
== END 2024-01-29 09:07 | disposition home or self-care (01) ==
LOC: M ED 02:22
DX: R07.9 Chest pain, unspecified (principal); J44.9 Chronic obstructive pulmonary disease, unspecified; F20.9 Schizophrenia, unspecified; F79 Unspecified intellectual disabilities; Z88.4 Allergy status to anesthetic agent; Z79.899 Other long term (current) drug therapy

== ENCOUNTER 2024-02-07 13:44 | Observation (INO) | payer MEDICARE, MEDICAID ==
[~2024-02-07] VITALS: Ht 157.5 cm; Wt 76.5 kg
[2024-02-07] MEDS: NS 500 ML IV ONE (14:10)
[2024-02-07 14:34] LABS: VENOUS BASE EXCESS 1.9 (-2.0-2.0); VENOUS HCO3 27.2 MMOL/L (23.0-27.0); VENOUS O2 SATURATION 94.1 % (60.0-80.0); VENOUS PARTIAL PRESSURE CO2 45.6 mmHg (38.0-50.0); VENOUS PARTIAL PRESSURE O2 75.1 mmHg (30.0-50.0); VENOUS PH 7.394 UNITS (7.330-7.430); VENOUS STANDARD HCO3 26.1 MMOL/L; VENOUS TOTAL CO2 28.6 MMOL/L (24.0-28.0)
[2024-02-07 14:42] LABS: BASO % 0.2 % (0.0-1.0); EOS # 0.1 10^3/uL (0.0-0.5); EOS % 0.4 % (0.0-3.0); HEMATOCRIT 35.5 % (42.0-52.0); HEMOGLOBIN 11.5 g/dl (13.5-17.5); LYMPH # 1.7 10^3/uL (1.5-5.0); MEAN CORPUSCULAR HEMOGLOBIN 32.1 pg (27.0-33.0); MEAN CORPUSCULAR HGB CONC 32.4 g/dl (32.0-36.5); MEAN CORPUSCULAR VOLUME 99.2 fl (80.0-96.0); MONO # 2.1 10^3/uL (0.0-0.8); MONO % 14.9 % (2.0-8.0); NEUTROPHILS # 10.1 10^3/uL (1.5-8.5); NEUTROPHILS % 71.9 % (36.0-66.0); PLATELET COUNT, AUTOMATED 155 10^3/uL (150-450); RED BLOOD COUNT 3.58 10^6/uL (4.30-6.10)
[2024-02-07 15:07] LABS: CK-MB VALUE MASS 1.9 NG/ML (<3.6)
[2024-02-07 15:09] LABS: ETHYL ALCOHOL (ETHANOL) 0.004 % (0.000-0.010)
[2024-02-07 15:10] LABS: CPK CREATINE PHOSPHOKINASE 272 U/L (46-171); MB/CK RELATIVE INDEX 0.69 (< OR =4)
[2024-02-07 15:11] LABS: ALBUMIN 2.8 G/DL (3.2-5.2); ALKALINE PHOSPHATASE 70 U/L (46-116); ALT/SGPT 15 U/L (7.0-40); AST/SGOT 29 U/L (<34); BILIRUBIN,DIRECT 0.2 MG/DL (<0.4); BILIRUBIN,TOTAL 0.4 MG/DL (0.3-1.2); BLOOD UREA NITROGEN 22 MG/DL (9-23); CALCIUM LEVEL 8.7 MG/DL (8.3-10.6); CARBON DIOXIDE LEVEL 28 MMOL/L (20-31); CHLORIDE LEVEL 105 MMOL/L (98-107); CREATININE FOR GFR 0.82 MG/DL (0.70-1.30); GLOMERULAR FILTRATION RATE > 60.0 (>42); GLUCOSE, FASTING 105 MG/DL (74-106); POTASSIUM SERUM 4.5 MMOL/L (3.5-5.1); SALICYLATE LEVEL < 3.0 MG/DL (<30); SODIUM LEVEL 138 MMOL/L (136-145); TOTAL PROTEIN 6.1 G/DL (5.7-8.2)
[2024-02-07] MEDS ORDERED: ISOVUE-370 76% 100ML VIAL As Ordered ONE (15:11)
[2024-02-07 15:12] LABS: THYROID STIMULATING HORMONE 1.493 uIU/ML (0.55-4.78)
[2024-02-07 16:16] LABS: MB/CK RELATIVE INDEX 0.84 (< OR =4)
[2024-02-07 16:35] LABS: PROCALCITONIN 0.12 ng/ml
[2024-02-07 17:01] LABS: AMPHETAMINES LEVEL URINE NEGATIVE (NEGATIVE); BARBITURATES URINE NEGATIVE (NEGATIVE); BENZODIAZEPINES URINE NEGATIVE (NEGATIVE); CANNABINOIDS URINE NEGATIVE (NEGATIVE); COCAINE METABOLITE URINE NEGATIVE (NEGATIVE); METHADONE URINE NEGATIVE (NEGATIVE); OPIATES URINE NEGATIVE (NEGATIVE); PHENCYCLIDINE URINE NEGATIVE (NEGATIVE)
[2024-02-07] MEDS: NS 1,000 ML IV ONE (17:17)
[2024-02-07] MEDS: cefTRIAXone SOD 1 GM in D5W MINI-BAG PLUS 50 ML IV ONE (17:18)
[2024-02-07] MEDS: DOXYCYCLINE HYCLATE 100 MG in D5W MINI-BAG PLUS 100 ML IV ONE (17:22)
[2024-02-07] MEDS ORDERED: ATEN25TA PO (17:35)
[2024-02-07] MEDS ORDERED: ASPI325T56 PO (17:35)
[2024-02-07] MEDS ORDERED: MELA10TA14 PO (17:43)
[2024-02-07] MEDS ORDERED: DIGO0.123 PO (17:43)
[2024-02-07] MEDS ORDERED: HOME MED LIST COMPLETE! XX SCH (17:45)
[2024-02-07] MEDS ORDERED: NEOSPORIN TOP OINT 15GM TOP PRN (17:50)
[2024-02-07] MEDS ORDERED: MOM 30ML SUSPENSION UDC PO PRN (18:00)
[2024-02-07 19:20] LABS: HEMATOCRIT 36.2 % (42.0-52.0); HEMOGLOBIN 11.8 g/dl (13.5-17.5); MEAN CORPUSCULAR HEMOGLOBIN 32.5 pg (27.0-33.0); MEAN CORPUSCULAR HGB CONC 32.6 g/dl (32.0-36.5); MEAN CORPUSCULAR VOLUME 99.7 fl (80.0-96.0); PLATELET COUNT, AUTOMATED 152 10^3/uL (150-450); RED BLOOD COUNT 3.63 10^6/uL (4.30-6.10); WHITE BLOOD COUNT 13.1 10^3/uL (4.0-10.0)
[2024-02-07 19:34] LABS: ALBUMIN 2.8 G/DL (3.2-5.2); ALKALINE PHOSPHATASE 65 U/L (46-116); ALT/SGPT 15 U/L (7.0-40); AST/SGOT 30 U/L (<34); BILIRUBIN,TOTAL 0.4 MG/DL (0.3-1.2); BLOOD UREA NITROGEN 20 MG/DL (9-23); CALCIUM LEVEL 8.6 MG/DL (8.3-10.6); CARBON DIOXIDE LEVEL 27 MMOL/L (20-31); CHLORIDE LEVEL 107 MMOL/L (98-107); CREATININE FOR GFR 0.73 MG/DL (0.70-1.30); GLOMERULAR FILTRATION RATE > 60.0 (>42); GLUCOSE, FASTING 86 MG/DL (74-106); INR 1.14; POTASSIUM SERUM 4.6 MMOL/L (3.5-5.1); PROTHROMBIN TIME 14.2 SECONDS (12.5-14.5); SODIUM LEVEL 139 MMOL/L (136-145); TOTAL PROTEIN 6.2 G/DL (5.7-8.2)
[2024-02-07] MEDS: CHLORHEXIDINE GLUCONATE 0.12 % 15ML UDC (PERIDEX ORAL RINSE) SSP SCH (20:20)
[2024-02-07] MEDS: METAMUCIL (PSYLLIUM) PACKET PO SCH (20:20)
[2024-02-07] MEDS: traZODone 100 MG TAB PO SCH (20:21)
[2024-02-07] MEDS: DIVALPROEX 500 MG TAB PO SCH (20:21)
[2024-02-07] MEDS: OLANZapine 10 MG TAB PO SCH (20:21)
[2024-02-07] MEDS: SENNA 8.6 MG TAB (SENOKOT) PO SCH (20:21)
[2024-02-07] MEDS: LACTULOSE 20GM/30ML SYRUP UDC PO ONE (20:22)
[2024-02-07] MEDS: ATORVASTATIN 10 MG TAB PO SCH (20:22)
[2024-02-07] MEDS: DOCUSATE SODIUM 100MG CAPSULE PO SCH (20:22)
[2024-02-07] MEDS: risperiDONE 2 MG TAB PO SCH (20:22)
[2024-02-08 03:05] VITALS: BP 133/65; TEMP 97.9; O2SAT 97
[2024-02-08 04:12] VITALS: BP 122/62; TEMP 97.7; O2SAT 98
[2024-02-08 06:44] LABS: HEMATOCRIT 33.9 % (42.0-52.0); HEMOGLOBIN 11.2 g/dl (13.5-17.5); MEAN CORPUSCULAR HEMOGLOBIN 32.5 pg (27.0-33.0); MEAN CORPUSCULAR VOLUME 98.3 fl (80.0-96.0); PLATELET COUNT, AUTOMATED 144 10^3/uL (150-450); RED BLOOD COUNT 3.45 10^6/uL (4.30-6.10); WHITE BLOOD COUNT 12.7 10^3/uL (4.0-10.0)
[2024-02-08 07:15] LABS: ALBUMIN 2.5 G/DL (3.2-5.2); ALKALINE PHOSPHATASE 58 U/L (46-116); ALT/SGPT 14 U/L (7.0-40); AST/SGOT 22 U/L (<34); BILIRUBIN,TOTAL 0.4 MG/DL (0.3-1.2); BLOOD UREA NITROGEN 14 MG/DL (9-23); CALCIUM LEVEL 8.5 MG/DL (8.3-10.6); CARBON DIOXIDE LEVEL 28 MMOL/L (20-31); CHLORIDE LEVEL 108 MMOL/L (98-107); CREATININE FOR GFR 0.72 MG/DL (0.70-1.30); GLOMERULAR FILTRATION RATE > 60.0 (>42); GLUCOSE, FASTING 85 MG/DL (74-106); POTASSIUM SERUM 4.2 MMOL/L (3.5-5.1); SODIUM LEVEL 136 MMOL/L (136-145); TOTAL PROTEIN 5.6 G/DL (5.7-8.2)
[2024-02-08 09:29] VITALS: BP 140/77
[2024-02-08] MEDS: LACTULOSE 20GM/30ML SYRUP UDC PO SCH (09:33)
[2024-02-08] MEDS: ASPIRIN 325 MG TAB PO SCH (09:34)
[2024-02-08] MEDS: FLUoxetine 20MG CAP PO SCH (09:34)
[2024-02-08] MEDS: RISPERIDONE 1 MG TAB PO SCH (09:34)
[2024-02-08] MEDS: OLANZapine 10 MG TAB PO SCH (09:34)
[2024-02-08] MEDS: DIGOXIN 0.125 MG TAB PO SCH (09:34)
[2024-02-08] MEDS: ENOXAPARIN 40MG/0.4ML SYRINGE (J1650 PER 10MG) SC SCH (09:36)
[2024-02-08] MEDS: ATENOLOL 12.5MG PER 1/2 TABLET PO SCH (09:45)
[2024-02-08 12:00] VITALS: BP 137/80; TEMP 97.5; O2SAT 97
[2024-02-08] MEDS: cefTRIAXone SOD 1 GM in D5W MINI-BAG PLUS 50 ML IV SCH (17:27)
[2024-02-08 20:15] VITALS: BP 126/62; TEMP 97.7; O2SAT 96
[2024-02-09 03:58] VITALS: BP 109/51; TEMP 97.5; O2SAT 94
[2024-02-09 07:50] LABS: BASO % 0.3 % (0.0-1.0); EOS # 0.1 10^3/uL (0.0-0.5); EOS % 1.5 % (0.0-3.0); LYMPH # 1.7 10^3/uL (1.5-5.0); LYMPH % 19.1 % (24.0-44.0); MEAN CORPUSCULAR HEMOGLOBIN 32.3 pg (27.0-33.0); MEAN CORPUSCULAR HGB CONC 33.3 g/dl (32.0-36.5); MEAN CORPUSCULAR VOLUME 96.8 fl (80.0-96.0); MONO # 1.4 10^3/uL (0.0-0.8); MONO % 14.9 % (2.0-8.0); NEUTROPHILS # 5.8 10^3/uL (1.5-8.5); NEUTROPHILS % 63.4 % (36.0-66.0); PLATELET COUNT, AUTOMATED 165 10^3/uL (150-450); RED BLOOD COUNT 3.72 10^6/uL (4.30-6.10); WHITE BLOOD COUNT 9.1 10^3/uL (4.0-10.0)
[2024-02-09 08:00] VITALS: BP 118/64; TEMP 97.7; O2SAT 95
[2024-02-09 08:10] LABS: BLOOD UREA NITROGEN 16 MG/DL (9-23); CARBON DIOXIDE LEVEL 31 MMOL/L (20-31); CHLORIDE LEVEL 104 MMOL/L (98-107); CREATININE FOR GFR 0.88 MG/DL (0.70-1.30); GLOMERULAR FILTRATION RATE > 60.0 (>42); GLUCOSE, FASTING 88 MG/DL (74-106); POTASSIUM SERUM 4.5 MMOL/L (3.5-5.1); SODIUM LEVEL 136 MMOL/L (136-145)
[2024-02-09 10:31] VITALS: BP 118/64
[2024-02-09] MEDS: cefTRIAXone SOD 1 GM in D5W MINI-BAG PLUS 50 ML IV SCH (10:34)
[2024-02-09] MEDS: ACETAMINOPHEN TAB 650MG DOSE (2X325MG) PO PRN (11:12)
[2024-02-09] MEDS ORDERED: CEFD300CAP PO (11:29)
== END 2024-02-09 12:30 | disposition other institution (70) ==
LOC: M ED 13:44 → EDBD 13:44 → M ED INP 17:49 → M MSPAV 02-08 03:02
PROVIDERS: ADMIT Internal Medicine; ATTEND Internal Medicine Nephrology
DX: G93.41 Metabolic encephalopathy (principal); N39.0 Urinary tract infection, site not specified; R53.1 Weakness; K59.00 Constipation, unspecified; J44.9 Chronic obstructive pulmonary disease, unspecified; F79 Unspecified intellectual disabilities; F20.9 Schizophrenia, unspecified; G40.909 Epilepsy, unspecified, not intractable, without status epilepticus; K40.90 Unilateral inguinal hernia, without obstruction or gangrene, not specified as recurrent; E78.5 Hyperlipidemia, unspecified; K76.0 Fatty (change of) liver, not elsewhere classified; I48.91 Unspecified atrial fibrillation; D64.9 Anemia, unspecified; Z79.82 Long term (current) use of aspirin; Z79.899 Other long term (current) drug therapy
CPT/HCPCS: 36415; 51701; 70450; 71045; 71275; 74177; 80047; 80048; 80053; 80076; 80143; 80307; 81001; 82077; 82140; 82550; 82553; 82803; 83605; 84145; 84443; 84484; 85025; 85027; 85610; 87040; 87088; 87186; 87486; 87581; 87633; 87798; 93005; 93041; 94760; 96365; 96366; 96367; 96372; 96375; 96376; 97161; 97530; 99285; G0378; J0696; J1650; Q9967

== ENCOUNTER 2024-04-21 19:15 | Emergency (ER) | payer MEDICARE, MEDICAID ==
[~2024-04-21] VITALS: Ht 165.1 cm; Wt 75.0 kg
[~2024-04-21 19:15] MED LIST changes: +ASPI325T56 PO; +ATEN25TA PO; +DIGO0.123 PO; -LACT10SO3 PO; +LACT10SO94 PO; +MELA10TA14 PO
[2024-04-21 19:51] LABS: BASO % 0.3 % (0.0-1.0); EOS # 0.1 10^3/uL (0.0-0.5); EOS % 1.4 % (0.0-3.0); HEMATOCRIT 35.1 % (42.0-52.0); HEMOGLOBIN 11.7 g/dl (13.5-17.5); LYMPH # 1.4 10^3/uL (1.5-5.0); LYMPH % 14.7 % (24.0-44.0); MEAN CORPUSCULAR HEMOGLOBIN 32.6 pg (27.0-33.0); MEAN CORPUSCULAR HGB CONC 33.3 g/dl (32.0-36.5); MEAN CORPUSCULAR VOLUME 97.8 fl (80.0-96.0); MONO # 1.2 10^3/uL (0.0-0.8); MONO % 12.7 % (2.0-8.0); NEUTROPHILS # 6.8 10^3/uL (1.5-8.5); NEUTROPHILS % 70.3 % (36.0-66.0); PLATELET COUNT, AUTOMATED 158 10^3/uL (150-450); RED BLOOD COUNT 3.59 10^6/uL (4.30-6.10); WHITE BLOOD COUNT 9.6 10^3/uL (4.0-10.0)
[2024-04-21 20:20] LABS: ALBUMIN 2.9 G/DL (3.2-5.2); ALKALINE PHOSPHATASE 85 U/L (40-129); ALT/SGPT 19 U/L (7.0-40); AST/SGOT 24 U/L (<34); BILIRUBIN,DIRECT 0.2 MG/DL (<0.4); BILIRUBIN,TOTAL 0.4 MG/DL (0.3-1.2); BLOOD UREA NITROGEN 27 MG/DL (9-23); CALCIUM LEVEL 9.5 MG/DL (8.3-10.6); CARBON DIOXIDE LEVEL 28 MMOL/L (20-31); CHLORIDE LEVEL 104 MMOL/L (98-107); CREATININE FOR GFR 0.73 MG/DL (0.70-1.30); DIGOXIN LEVEL 0.3 NG/ML (0.8-2.0); GLOMERULAR FILTRATION RATE > 60.0 (>42); GLUCOSE, FASTING 119 MG/DL (74-106); MAGNESIUM LEVEL 1.7 MG/DL (1.8-2.4); POTASSIUM SERUM 4.6 MMOL/L (3.5-5.1); SODIUM LEVEL 139 MMOL/L (136-145); TOTAL PROTEIN 6.2 G/DL (5.7-8.2)
[2024-04-21] MEDS: ACETAMINOPHEN 325 MG TAB PO ONE (20:22)
[2024-04-21 23:30] VITALS: BP 110/60; TEMP 98.1; O2SAT 93
== END 2024-04-21 23:35 | disposition home or self-care (01) ==
LOC: M ED 19:15 → EDBD 19:15 → M ED 23:35
DX: R50.9 Fever, unspecified (principal); R53.1 Weakness; I10 Essential (primary) hypertension; E78.5 Hyperlipidemia, unspecified; J44.9 Chronic obstructive pulmonary disease, unspecified; K59.02 Outlet dysfunction constipation; F79 Unspecified intellectual disabilities; Z86.79 Personal history of other diseases of the circulatory system; Z88.8 Allergy status to other drugs, medicaments and biological substances; Z87.891 Personal history of nicotine dependence

== ENCOUNTER 2024-08-29 19:21 | Observation (INO) | payer MEDICARE, MEDICAID ==
[~2024-08-29] VITALS: Ht 167.6 cm; Wt 82.1 kg
[~2024-08-29 19:21] MED LIST changes: +FLUV100T20 PO; -FLUV100T25 PO
[2024-08-29 19:51] LABS: BASO % 0.2 % (0.0-1.0); EOS # 0.1 10^3/uL (0.0-0.5); EOS % 0.8 % (0.0-3.0); LYMPH # 0.7 10^3/uL (1.5-5.0); LYMPH % 11.6 % (24.0-44.0); MEAN CORPUSCULAR HEMOGLOBIN 32.6 pg (27.0-33.0); MEAN CORPUSCULAR HGB CONC 32.6 g/dl (32.0-36.5); MONO # 0.6 10^3/uL (0.0-0.8); NEUTROPHILS # 4.7 10^3/uL (1.5-8.5); NEUTROPHILS % 76.9 % (36.0-66.0); PLATELET COUNT, AUTOMATED 103 10^3/uL (150-450); RED BLOOD COUNT 1.87 10^6/uL (4.30-6.10); WHITE BLOOD COUNT 6.1 10^3/uL (4.0-10.0)
[2024-08-29 19:52] LABS: HEMATOCRIT 18.7 % (42.0-52.0); HEMOGLOBIN 6.1 g/dl (13.5-17.5)
[2024-08-29 20:10] LABS: CK-MB VALUE MASS 8.3 NG/ML (<3.6)
[2024-08-29 20:12] LABS: ALBUMIN 2.8 G/DL (3.2-5.2); ALKALINE PHOSPHATASE 62 U/L (40-129); ALT/SGPT 27 U/L (7.0-40); AST/SGOT 35 U/L (<34); BILIRUBIN,DIRECT 0.2 MG/DL (<0.4); BILIRUBIN,TOTAL 0.4 MG/DL (0.3-1.2); BLOOD UREA NITROGEN 22 MG/DL (9-23); CALCIUM LEVEL 8.3 MG/DL (8.3-10.6); CARBON DIOXIDE LEVEL 26 MMOL/L (20-31); CHLORIDE LEVEL 105 MMOL/L (98-107); CPK CREATINE PHOSPHOKINASE 384 U/L (46-171); CREATININE FOR GFR 0.88 MG/DL (0.70-1.30); GLOMERULAR FILTRATION RATE > 90.0 (>42); GLUCOSE, FASTING 118 MG/DL (74-106); MB/CK RELATIVE INDEX 2.16 (< OR =4); POTASSIUM SERUM 4.3 MMOL/L (3.5-5.1); SODIUM LEVEL 141 MMOL/L (136-145)
[2024-08-29 20:14] LABS: THYROID STIMULATING HORMONE 1.841 uIU/ML (0.55-4.78)
[2024-08-29] MEDS: NS (Normal Saline) 0.9% 1,000 ML IV ONE (20:35)
[2024-08-29 20:53] LABS: IRON (FE) 48 UG/DL (65-175); PERCENT SATURATION 17.3 % (19.7-50.0); TOTAL IRON BINDING CAPACITY 278 UG/DL (250-425)
[2024-08-29 21:36] VITALS: BP 112/58; TEMP 98.8; O2SAT 97
[2024-08-29 21:41] LABS: VALPROIC ACID (DEPAKOTE) 52.5 UG/ML (50.0-100.0)
[2024-08-29 21:42] LABS: DIGOXIN LEVEL 0.5 NG/ML (0.8-2.0)
[2024-08-29] MEDS ORDERED: HOME MED LIST COMPLETE! XX SCH (21:50)
[2024-08-29 22:16] VITALS: BP 122/67; TEMP 98.3; O2SAT 96
[2024-08-29 23:15] VITALS: BP 122/60; TEMP 97.9; O2SAT 95
[2024-08-30 00:15] VITALS: BP 105/55; TEMP 97.6; O2SAT 96
[2024-08-30] MEDS ORDERED: ACETAMINOPHEN 325 MG TAB PO PRN (00:30)
[2024-08-30 00:52] VITALS: BP 101/55; TEMP 97.2; O2SAT 97
[2024-08-30 01:34] VITALS: BP 97/71; TEMP 97.3; O2SAT 97
[2024-08-30 02:14] VITALS: BP 113/62; TEMP 97.4; O2SAT 97
[2024-08-30 02:45] VITALS: BP 148/79; TEMP 97.7; O2SAT 97
[2024-08-30 06:15] LABS: HEMATOCRIT 40.4 % (42.0-52.0); INR 1.03; MEAN CORPUSCULAR HEMOGLOBIN 31.8 pg (27.0-33.0); MEAN CORPUSCULAR HGB CONC 33.7 g/dl (32.0-36.5); MEAN CORPUSCULAR VOLUME 94.4 fl (80.0-96.0); PLATELET COUNT, AUTOMATED 169 10^3/uL (150-450); PROTHROMBIN TIME 13.9 SECONDS (12.5-14.5); RED BLOOD COUNT 4.28 10^6/uL (4.30-6.10); WHITE BLOOD COUNT 9.8 10^3/uL (4.0-10.0)
[2024-08-30 06:18] LABS: HEMOGLOBIN 13.6 g/dl (13.5-17.5)
[2024-08-30 06:34] LABS: ALBUMIN 2.4 G/DL (3.2-5.2); ALKALINE PHOSPHATASE 61 U/L (40-129); ALT/SGPT 23 U/L (7.0-40); AST/SGOT 31 U/L (<34); BLOOD UREA NITROGEN 18 MG/DL (9-23); CALCIUM LEVEL 8.4 MG/DL (8.3-10.6); CARBON DIOXIDE LEVEL 28 MMOL/L (20-31); CHLORIDE LEVEL 109 MMOL/L (98-107); CREATININE FOR GFR 0.73 MG/DL (0.70-1.30); GLOMERULAR FILTRATION RATE > 90.0 (>42); GLUCOSE, FASTING 91 MG/DL (74-106); SODIUM LEVEL 145 MMOL/L (136-145); TOTAL PROTEIN 5.3 G/DL (5.7-8.2)
[2024-08-30] MEDS: RISPERIDONE 1 MG TAB PO SCH (10:19)
[2024-08-30] MEDS: DIGOXIN 0.125 MG TAB PO SCH (10:20)
[2024-08-30] MEDS: ASPIRIN 325 MG TAB PO SCH (10:20)
[2024-08-30] MEDS: LACTULOSE 20GM/30ML SYRUP UDC PO SCH (10:20)
[2024-08-30] MEDS: OLANZapine 10 MG TAB PO SCH (10:21)
[2024-08-30] MEDS: METAMUCIL (PSYLLIUM) PACKET PO SCH (10:21)
[2024-08-30] MEDS: FLUoxetine 20MG CAP PO SCH (10:21)
[2024-08-30 12:02] VITALS: BP 139/70; TEMP 97.7; O2SAT 96
[2024-08-30 12:16] LABS: HEMATOCRIT 42.4 % (42.0-52.0); HEMOGLOBIN 13.9 g/dl (13.5-17.5); MEAN CORPUSCULAR HEMOGLOBIN 30.9 pg (27.0-33.0); MEAN CORPUSCULAR HGB CONC 32.8 g/dl (32.0-36.5); MEAN CORPUSCULAR VOLUME 94.2 fl (80.0-96.0); PLATELET COUNT, AUTOMATED 171 10^3/uL (150-450)
[2024-08-30] MEDS ORDERED: traZODone 100 MG TAB PO SCH (21:00)
[2024-08-30] MEDS ORDERED: DIVALPROEX 500 MG TAB PO SCH (21:00)
[2024-08-30] MEDS ORDERED: ATORVASTATIN 10 MG TAB PO SCH (21:00)
[2024-08-30] MEDS ORDERED: OLANZapine 10 MG TAB PO SCH (21:00)
[2024-08-30] MEDS ORDERED: RISPERIDONE 1 MG TAB PO SCH (21:00)
== END 2024-08-30 12:56 | disposition home or self-care (01) ==
LOC: EDBD 19:21 → M ED 19:21 → M ED INP 19:22 → M MSPAV 08-30 02:47
PROVIDERS: ADMIT Student in an Organized Health Care Education/Training Program; ATTEND Internal Medicine Nephrology
DX: E87.21 Acute metabolic acidosis (principal); D64.9 Anemia, unspecified; F79 Unspecified intellectual disabilities; I48.91 Unspecified atrial fibrillation; K59.00 Constipation, unspecified; G40.909 Epilepsy, unspecified, not intractable, without status epilepticus; E78.5 Hyperlipidemia, unspecified; R25.1 Tremor, unspecified; F20.9 Schizophrenia, unspecified; J44.9 Chronic obstructive pulmonary disease, unspecified; K76.0 Fatty (change of) liver, not elsewhere classified; K40.90 Unilateral inguinal hernia, without obstruction or gangrene, not specified as recurrent; K06.1 Gingival enlargement; Z79.82 Long term (current) use of aspirin; Z79.899 Other long term (current) drug therapy; Z88.8 Allergy status to other drugs, medicaments and biological substances
CPT/HCPCS: 36415; 36430; 71045; 80048; 80053; 80076; 80162; 80164; 82550; 82553; 83550; 83605; 84443; 84484; 85025; 85027; 85046; 85610; 86850; 86900; 86901; 86920; 87040; 87486; 87581; 87633; 87798; 93005; 96374; 97161; 99285; G0378; G0463; P9016

== ENCOUNTER → 2024-09-28 | Outpatient (CLI) | payer MEDICARE, MEDICAID ==
[~2024-09-28] MED LIST changes: +OLAN20TA74 PO; -ZYPR20TA PO; +[UNRECOGNIZED DRUG - CODE] TOP
[2024-09-28 14:43] LABS: BASO % 0.4 % (0.0-1.0); EOS # 0.2 10^3/uL (0.0-0.5); EOS % 2.2 % (0.0-3.0); HEMATOCRIT 40.3 % (42.0-52.0); HEMOGLOBIN 13.2 g/dl (13.5-17.5); LYMPH % 29.2 % (24.0-44.0); MEAN CORPUSCULAR HEMOGLOBIN 31.3 pg (27.0-33.0); MEAN CORPUSCULAR HGB CONC 32.8 g/dl (32.0-36.5); MEAN CORPUSCULAR VOLUME 95.5 fl (80.0-96.0); MONO # 0.9 10^3/uL (0.0-0.8); MONO % 13.6 % (2.0-8.0); NEUTROPHILS # 3.7 10^3/uL (1.5-8.5); NEUTROPHILS % 53.4 % (36.0-66.0); PLATELET COUNT, AUTOMATED 170 10^3/uL (150-450); RED BLOOD COUNT 4.22 10^6/uL (4.30-6.10); WHITE BLOOD COUNT 6.9 10^3/uL (4.0-10.0)
[2024-09-28 14:46] LABS: VALPROIC ACID (DEPAKOTE) 75.4 UG/ML (50.0-100.0)
[2024-09-28 14:47] LABS: ALBUMIN 3.2 G/DL (3.2-5.2); ALKALINE PHOSPHATASE 70 U/L (40-129); ALT/SGPT 21 U/L (7.0-40); AST/SGOT 24 U/L (<34); BILIRUBIN,TOTAL 0.4 MG/DL (0.3-1.2); BLOOD UREA NITROGEN 21 MG/DL (9-23); CALCIUM LEVEL 9.4 MG/DL (8.3-10.6); CARBON DIOXIDE LEVEL 29 MMOL/L (20-31); CHLORIDE LEVEL 103 MMOL/L (98-107); CHOLESTEROL LEVEL 117 MG/DL (<200); CHOLESTEROL RISK RATIO 3.01 (<5); CREATININE FOR GFR 0.82 MG/DL (0.70-1.30); GLOMERULAR FILTRATION RATE > 90.0 (>42); GLUCOSE, FASTING 62 MG/DL (74-106); HDL CHOLESTEROL 38.8 MG/DL (>40); IRON (FE) 113 UG/DL (65-175); NON-HDL-C 78.2 MG/DL; PERCENT SATURATION 37.7 % (19.7-50.0); POTASSIUM SERUM 4.3 MMOL/L (3.5-5.1); PSA SCREENING 0.87 NG/ML (< 4.00); SODIUM LEVEL 141 MMOL/L (136-145); TOTAL IRON BINDING CAPACITY 300 UG/DL (250-425); TOTAL PROTEIN 6.4 G/DL (5.7-8.2); TRIGLYCERIDES LEVEL 106 MG/DL (<150)
== END ==
LOC: M WUC 11:31
PROVIDERS: ATTEND Family Medicine
DX: Z00.00 Encounter for general adult medical examination without abnormal findings (principal); Z12.5 Encounter for screening for malignant neoplasm of prostate; D64.9 Anemia, unspecified; E78.5 Hyperlipidemia, unspecified; F20.9 Schizophrenia, unspecified
CPT/HCPCS: 36415; 80053; 80061; 80164; 83550; 85025; G0103

== ENCOUNTER → 2025-01-10 | Outpatient (CLI) | payer MEDICARE, MEDICAID ==
[~2025-01-10] MED LIST changes: +DIVA-41 PO; -DIVA500T94 PO; +SLOW1TAB3 PO; -SLOWTAB2 PO
[2025-01-10 12:34] LABS: BASO # 0.0 10^3/uL (0.0-0.2); BASO % 0.4 % (0.0-1.0); EOS # 0.1 10^3/uL (0.0-0.5); EOS % 1.3 % (0.0-3.0); LYMPH # 2.0 10^3/uL (1.5-5.0); LYMPH % 22.9 % (24.0-44.0); MONO # 1.1 10^3/uL (0.0-0.8); MONO % 12.9 % (2.0-8.0); NEUTROPHILS # 5.3 10^3/uL (1.5-8.5); NEUTROPHILS % 61.9 % (36.0-66.0); PLATELET COUNT, AUTOMATED 169 10^3/uL (150-450)
[2025-01-10 12:43] LABS: ALT/SGPT 24.0 U/L (7.0-40); AST/SGOT 30.0 U/L (<34); CALCIUM LEVEL 9.1 MG/DL (8.3-10.6); CARBON DIOXIDE LEVEL 31.0 MMOL/L (20-31); CHLORIDE LEVEL 103.0 MMOL/L (98-107); CHOLESTEROL LEVEL 111.0 MG/DL (<200); CHOLESTEROL RISK RATIO 3.04 (<5); CREATININE FOR GFR 0.92 MG/DL (0.70-1.30); GLOMERULAR FILTRATION RATE 88.9 (>42); LDL CHOLESTEROL 55.0 MG/DL (<100); NON-HDL-C 74.6 MG/DL; POTASSIUM SERUM 4.1 MMOL/L (3.5-5.1); PROLACTIN 25.01 NG/ML (2.1-17.7); SODIUM LEVEL 141.0 MMOL/L (136-145); TRIGLYCERIDES LEVEL 98.0 MG/DL (<150)
[2025-01-10 12:52] LABS: ESTIMATED AVERAGE GLUCOSE 100.0 MG/DL (60-110)
== END ==
LOC: M WUC 09:26
PROVIDERS: ATTEND Physician Assistant
DX: Z79.899 Other long term (current) drug therapy (principal)

== ENCOUNTER → 2025-01-10 | Outpatient (CLI) | payer MEDICARE, MEDICAID | LOC: M WUC 09:28 | PROVIDERS: ATTEND Physician Assistant | DX: I48.0 Paroxysmal atrial fibrillation (principal); E83.42 Hypomagnesemia ==